=== PATIENT | female | born 1950 | race Caucasian/White ===

== ENCOUNTER 2017-04-23 06:33 | Day surgery (SDC) | payer MEDICARE, OTHER ==
--- NOTE | 2017-04-23 07:19 | PCM.PREANE ---
Preanesthetic Assessment - Anesthesia/Transfusion/Family Hx Anesthesia History: Prior Anesthesia Without Reaction Family History of Anesthesia Reaction: No Transfusion History: No Prior Transfusion(s) - Review of Systems General: No Symptoms Pulmonary: No Symptoms Cardiovascular: No Symptoms Gastrointestinal: No Symptoms Neurological: No Symptoms Other: Reports: None - Physical Assessment NPO Status Date: 04/22/17 O2 Sat by Pulse Oximetry: 96 Respiratory Rate: 16 Vital Signs: Last Vital Signs Temp 36.2 C 04/23/17 06:42 Pulse 81 04/23/17 06:42 Resp 16 04/23/17 06:42 BP 181/90 H 04/23/17 06:42 Pulse Ox 96 04/23/17 06:42 Height: 1.68 m Weight: 81.193 kg ASA Class: 2 Mental Status: Alert & Oriented x3 Airway Class: Mallampati = 2 Dentition: Reports: Dentures ROM/Head Extension: Full Lungs: Clear to Auscultation, Normal Respiratory Effort Cardiovascular: Regular Rate, Regular Rhythm - Allergies Allergies/Adverse Reactions: Allergies Allergy/AdvReac Type Severity Reaction Status Date / Time morphine Allergy Nausea and Verified 04/23/17 07:05 Vomiting - Anesthesia Plan Pre-Op Medication Ordered: None - Acknowledgements Anesthesia Type Planned: General Anesthesia Pt an Appropriate Candidate for the Planned Anesthesia: Yes Alternatives and Risks of Anesthesia Discussed w Pt/Guardian: Yes Pt/Guardian Understands and Agrees with Anesthesia Plan: Yes PreAnesthesia Questionnaire HEENT History: Reports: Other (See Below) Other HEENT History: wears glasses, top and bottom dentures Cardiovascular History: Reports: Hypertension Genitourinary History: Reports: None 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 OB/BYN History: vaginal prolapse, stress incontinence Musculoskeletal History: Reports: None Endocrine/Metabolic History: Reports: Other (See Below) Other Endocrine/Metabolic History: prediabetic - Past Surgical History Head Surgeries/Procedures: Reports: None Female Surgical History: Reports: Hysterectomy Other Female Surgeries/Procedures: cystocele repair Musculoskeletal Surgical History: Reports: Carpal Tunnel - SUBSTANCE USE Smoking Status *Q: Never Smoker Recreational Drug Use History: No - HOME MEDS Home Medications: Home Meds Ca Car&Hyd/Soy/Cohos/Melatonin [Estroven Nighttime Caplet] 2 mg PO BEDTIME 04/20 [History] Chlorthalidone 25 mg PO DAILY 04/20/17 [History] Estrogens, Conjugated [Premarin Vaginal Crm] 1 dose VAG ASDIRECTED 04/20/17 [ History] Lisinopril 40 mg PO DAILY 04/20/17 [History] Multivitamin [Multivitamins] 1 tab PO DAILY 04/20/17 [History]
[2017-04-23] MEDS ORDERED: Midazolam 1 MG/ML 2 ML SDV ONE (07:30)
[2017-04-23] MEDS ORDERED: Ondansetron 4 MG/2 ML SDV ONE (07:30)
[2017-04-23] MEDS ORDERED: Rocuronium 10 MG/ML 10 ML Syringe ONE (07:30)
[2017-04-23] MEDS ORDERED: Neostigmine Methylsulfate 1 MG/ML 5 ML Syringe ONE (07:30)
[2017-04-23] MEDS ORDERED: fentaNYL 100 MCG/2 ML SDV ONE (07:30)
[2017-04-23] MEDS ORDERED: Glycopyrrolate 0.2 MG/ML SDV ONE (07:30)
[2017-04-23] MEDS ORDERED: Lidocaine 2% 5 ML SDV ONE (07:30)
[2017-04-23] MEDS ORDERED: Propofol 200 MG/20 ML SDV ONE (07:30)
[2017-04-23] MEDS ORDERED: fentaNYL 100 MCG/2 ML SDV IVPUSH PRN (07:46)
[2017-04-23] MEDS ORDERED: Lactated Ringers 1,000 ML IV SCH (08:00)
[2017-04-23] MEDS ORDERED: Methylene Blue 50 MG/10 ML Ampule ONE (08:07)
[2017-04-23] MEDS ORDERED: ceFAZolin 1 GM Vial ONE (08:13)
[2017-04-23] MEDS ORDERED: Sodium Chloride 0.9% 20 ML ONE (08:13)
[2017-04-23] MEDS ORDERED: ePHEDrine 50 MG/ML SDV ONE (08:17)
[2017-04-23] MEDS ORDERED: Phenylephrine/Normal Saline 100 MCG/ML 10 ML Syringe ONE (08:21)
[2017-04-23] MEDS ORDERED: Promethazine 25 MG/ML SDV IM PRN (09:50)
[2017-04-23] MEDS ORDERED: Morphine 4 MG/ML Syringe IVPUSH PRN (09:50)
[2017-04-23] MEDS ORDERED: Ketorolac 30 MG/ML SDV IVPUSH ONE (09:50)
[2017-04-23] MEDS ORDERED: Acetaminophen/oxyCODONE 325-5 MG Tab PO PRN (09:50)
[2017-04-23] MEDS ORDERED: Morphine 2 MG/ML Syringe IVPUSH PRN (09:50)
[2017-04-23] MEDS ORDERED: Ketorolac 30 MG/ML SDV IVPUSH PRN (09:50)
--- NOTE | 2017-04-23 09:59 | PCM.OPNOTE ---
- General Post-Op/Procedure Note Date of Surgery/Procedure: 04/23/17 Operative Procedure(s): Pelvic floor reconstraction. Pre Op Diagnosis: Pelvic relaxation Post-Op Diagnosis: Same Anesthesia Technique: General ET Tube Primary Surgeon: Cam Moreno Industrial Therapist: Mikala Ugalde EBL in mLs: 100 Complications: None Condition: Good Free Text/Narrative:: Intake & Output 04/22/17 04/23/17 04/23/17 22:59 06:59 14:59 Output Total 30 Balance -30
--- NOTE | 2017-04-23 11:07 | PCM.POSTAN ---
POST ANESTHESIA ASSESSMENT - MENTAL STATUS Mental Status: Alert, Oriented - RESPIRATORY Respiratory Status: Respiratory Rate WNL, Airway Patent, O2 Saturation Stable - CARDIOVASCULAR CV Status: Pulse Rate WNL, Blood Pressure Stable - GASTROINTESTINAL GI Status: No Symptoms - POST OP HYDRATION Hydration Status: Adequate & Stable
[2017-04-23] MEDS: Acetaminophen/oxyCODONE 325-5 MG Tab PO PRN ×2 (11:30→22:53)
[2017-04-23] MEDS: Ondansetron 4 MG/2 ML SDV IVPUSH PRN (12:29)
--- NOTE | 2017-04-23 17:35 | OR ---
SURGEON: Cam Moreno MD DATE OF PROCEDURE: PREOPERATIVE DIAGNOSES: 1. Pelvic relaxation. 2. Enterocele and rectocele. 3. Stress urinary incontinence. POSTOPERATIVE DIAGNOSES: 1. Pelvic relaxation. 2. Enterocele and rectocele. 3. Stress urinary incontinence. OPERATIONS PERFORMED: Enterocele and rectocele repair utilizing a Ganga culdoplasty and Solyx TVT and cystoscopy. PRE FABRICATOR: NESHA Trevino ANESTHESIA: General endotracheal intubation, Paramjit Mari and Dr. Gonzalez. ESTIMATED BLOOD LOSS: Less than 100 mL. COMPLICATIONS: None. FINDINGS: Enterocele and rectocele, and stress urinary incontinence. INDICATION FOR SURGERY: Harviell refer to the admit note. PROCEDURE IN DETAIL: The patient was brought to the OR, properly identified and after adequate level of anesthesia and time-out taken, the patient was placed in lithotomy position, prepped and draped in sterile fashion as usual. The operation was started by identifying the enterocele and rectocele defect, and then by injecting the posterior and apical part of the vagina with copious amount of normal saline, the posterior vaginal wall was opened posteriorly from the vaginal vault to the introitus and dissected laterally. Hobart retractor was used to aid in the exposure and then with sharp and blunt dissection, the enterocele was from the rectocele and we further dissected the enterocele up to the floor of the pelvis and it was opened, and tested and is reduced and using #1 silk, Ganga culdoplasty was performed to close the hernial opening in the hernial sac and excised and sent for histopathology. Once we finished with that, then we continued to dissect with sharp and blunt dissection on both sides of the vagina until I could feel the ischial spine on both sides and then using Capio needle, the suture was anchored to the sacrospinous ligament on both sides and after the was taken and cut to fit the space, it anchored, and after fixing it to the underside of the vagina, it was anchored to the sacrospinous ligament from both sides and thus is farther reducing the enterocele and covering the defect area and reducing the rectocele tube. Once we did that, then the vaginal cuff was closed with 2-0 Vicryl continuous interlocking for hemostasis, and the perineal body is repaired and developed in the usual manner. Once we did with that, then we proceeded to the anterior vaginal wall and the area beneath the urethra about an inch and a half was infiltrated with copious amount of saline and incised in the midline and dissected in a tunneling fashion creating a tunnel to the Solyx TVT. In the Solyx TVT, anchored to the pubic rami on both side with due amount of tension to elevate the urethrovesical angle, and then the vaginal cuff was anteriorly closed with 2-0 Vicryl continuous interlocking for hemostasis. After that, cystoscopy was performed. The bladder was intact and the ureteric orifices were seen with the urine coming from both of them. Thus, the patency of both ureters verified. The instrument and sponge count was correct. The patient tolerated the procedure without any problem. ORTIZ DIAZ /[id number]
[2017-04-24] MEDS: Acetaminophen/oxyCODONE 325-5 MG Tab PO PRN (04:05)
[2017-04-24 06:23] LABS: CHLORIDE,CL 101 mmol/L (98-110); SODIUM,NA 139 mmol/L (136-146)
[2017-04-24] MEDS: Ondansetron 4 MG/2 ML SDV IVPUSH PRN (07:42)
--- NOTE | 2017-04-24 08:35 | PCM.SURGPN ---
- General Info Date of Service: 04/24/17 POD#: 1 Functional Status: Reports: Pain Controlled - Review of Systems General: Reports: No Symptoms HEENT: Reports: No Symptoms Pulmonary: Reports: No Symptoms Cardiovascular: Reports: No Symptoms Gastrointestinal: Reports: No Symptoms Genitourinary: Reports: No Symptoms Musculoskeletal: Reports: No Symptoms Skin: Reports: No Symptoms Neurological: Reports: No Symptoms Psychiatric: Reports: No Symptoms - Patient Data Vitals - Most Recent: Last Vital Signs Temp 36.8 C 04/24/17 04:00 Pulse 69 04/24/17 04:00 Resp 16 04/24/17 04:00 BP 119/63 04/24/17 04:00 Pulse Ox 91 L 04/24/17 04:00 Weight - Most Recent: 81.193 kg I&O - Last 24 Hours: Intake & Output 04/23/17 04/24/17 04/24/17 22:59 06:59 14:59 Intake Total 1150 1100 Output Total 120 1550 Balance 1030 -450 Lab Results Last 24 Hrs: Laboratory Results - last 24 hr 04/24/17 04/24/17 Range/Units 05:36 05:36 WBC 8.61 (4.0-11.0) K/uL RBC 4.67 (4.30-5.90) M/uL Hgb 12.7 (12.0-16.0) g/dL Hct 39.0 (36.0-46.0) % MCV 83.5 (80.0-98.0) fL MCH 27.2 (27.0-32.0) pg MCHC 32.6 (31.0-37.0) g/dL RDW Std Deviation 45.2 (28.0-62.0) fl RDW Coeff of [place] 15 (11.0-15.0) % Plt Count 174 (150-400) K/uL MPV 10.70 (7.40-12.00) fL Neut % (Auto) 74.6 (48.0-80.0) % Lymph % (Auto) 14.2 L (16.0-40.0) % Davison % (Auto) 8.9 (0.0-15.0) % Eos % (Auto) 2.2 (0.0-7.0) % Baso % (Auto) 0.1 (0.0-1.5) % Neut # (Auto) 6.4 H (1.4-5.7) K/uL Lymph # (Auto) 1.2 (0.6-2.4) K/uL Davison # (Auto) 0.8 (0.0-0.8) K/uL Eos # (Auto) 0.2 (0.0-0.7) K/uL Baso # (Auto) 0.0 (0.0-0.1) K/uL Nucleated RBC % 0.0 /100WBC Nucleated RBCs # 0 K/uL Sodium 139 (136-146) mmol/L Potassium 4.5 (3.5-5.1) mmol/L Chloride 101 (98-110) mmol/L Carbon Dioxide 30 (21-31) mmol/L BUN 22 (6.0-23.0) mg/dL Creatinine 0.9 (0.6-1.5) mg/dL Est Cr Clr Drug Dosing 58.34 mL/min Estimated GFR (MDRD) > 60.0 ml/min Glucose 116 H (60-110) mg/dL Calcium 8.3 L (8.8-10.8) mg/dL Med Orders - Current: Current Medications Lactated Ringer's (Ringers, Lactated) 1,000 mls @ 125 mls/hr IV ASDIRECTED MARIA D Ketorolac Tromethamine (Toradol) 30 mg IVPUSH Q6H PRN PRN Reason: Pain (severe 7-10) Stop: 04/28/17 09:50 Last Admin: 04/23/17 17:23 Dose: 30 mg Morphine Sulfate (Morphine) 2 mg IVPUSH Q2H PRN PRN Reason: Pain (severe 7-10) Morphine Sulfate (Morphine) 4 mg IVPUSH Q2H PRN PRN Reason: Pain (severe 7-10) Ondansetron HCl (Zofran) 4 mg IVPUSH Q6H PRN PRN Reason: Nausea/Vomiting Last Admin: 04/24/17 07:42 Dose: 4 mg Oxycodone/Acetaminophen (Percocet 325-5 Mg) 1 tab PO Q4H PRN PRN Reason: Pain (moderate 4-6) Oxycodone/Acetaminophen (Percocet 325-5 Mg) 2 tab PO Q4H PRN PRN Reason: Pain (moderate 4-6) Last Admin: 04/24/17 04:05 Dose: 2 tab Promethazine HCl (Phenergan) 25 mg IM Q6H PRN PRN Reason: Nausea/Vomiting Discontinued Medications Cefazolin Sodium (Ancef) Confirm Administered Dose 1 gm .ROUTE .STK-MED ONE Stop: 04/23/17 08:14 Ephedrine Sulfate (Ephedrine Sulfate) Confirm Administered Dose 50 mg .ROUTE .STK-MED ONE Stop: 04/23/17 08:18 Fentanyl (Sublimaze) Confirm Administered Dose 200 mcg .ROUTE .STK-MED ONE Stop: 04/23/17 07:31 Fentanyl (Sublimaze) 50 mcg IVPUSH Q5M PRN PRN Reason: Pain (severe 7-10) Stop: 04/24/17 07:46 Glycopyrrolate (Robinul) Confirm Administered Dose 0.4 mg .ROUTE .STK-MED ONE Stop: 04/23/17 07:31 Sodium Chloride (Normal Saline) Confirm Administered Dose 20 mls @ as directed .ROUTE .STK-MED ONE Stop: 04/23/17 08:14 Ketorolac Tromethamine (Toradol) 30 mg IVPUSH ONETIME ONE Stop: 04/23/17 09:51 Last Admin: 04/23/17 10:02 Dose: 30 mg Lidocaine (Xylocaine-Mpf 2%) Confirm Administered Dose 5 ml .ROUTE .STK-MED ONE Stop: 04/23/17 07:31 Methylene Blue (Provayblue) Confirm Administered Dose 50 mg .ROUTE .STK-MED ONE Stop: 04/23/17 08:08 Midazolam HCl (Versed 1 Mg/Ml) Confirm Administered Dose 2 mg .ROUTE .STK-MED ONE Stop: 04/23/17 07:31 Neostigmine Methylsulfate (Neostigmine) Confirm Administered Dose 5 mg .ROUTE .STK-MED ONE Stop: 04/23/17 07:31 Ondansetron HCl (Zofran) Confirm Administered Dose 4 mg .ROUTE .STK-MED ONE Stop: 04/23/17 07:31 Phenylephrine HCl (Phenylephrine In Ns 100 Mcg/Ml) Confirm Administered Dose 1 mg .ROUTE .STK-MED ONE Stop: 04/23/17 08:22 Propofol (Diprivan 20 Ml) Confirm Administered Dose 200 mg .ROUTE .STK-MED ONE Stop: 04/23/17 07:31 Rocuronium Reading (Zemuron) Confirm Administered Dose 100 mg .ROUTE .STK-MED ONE Stop: 04/23/17 07:31 - Exam Wound/Incisions: Healing Well General: Alert, Oriented HEENT: Pupils Equal Neck: Supple Lungs: Clear to Auscultation, Normal Respiratory Effort Cardiovascular: Regular Rate, Regular Rhythm GI/Abdominal Exam: Normal Bowel Sounds, Soft, Non-Tender, No Organomegaly, No Distention, No Abnormal Bruit, No Mass, Pelvis Stable Extremities: Normal Inspection, Normal Range of Motion, Non-Tender, No Pedal Edema, Normal Capillary Refill Skin: Warm, Dry, Intact Neurological: No New Focal Deficit Psy/Mental Status: Alert, Normal Affect, Normal Mood - Problem List Review Problem List Initiated/Reviewed/Updated: Yes - My Orders Last 24 Hours: Active Orders 24 hr Category Date Time Status Patient Status [ADT] Routine ADT 04/23/17 09:50 Active Antiembolic Devices [RC] PER UNIT ROUTINE Care 04/23/17 09:51 Active Bradycardia-Neuroaxis [employer] [RC] ROUTINE Care 04/23/17 07:46 Active Hypertension-Neuroaxis [employer] [RC] ROUTINE Care 04/23/17 07:46 Active Hypotension-Neuroaxis [employer] [RC] ROUTINE Care 04/23/17 07:46 Active Notify Provider Vital Signs [RC] ASDIRECTED Care 04/23/17 09:50 Active Oxygen Therapy [RC] ASDIRECTED Care 04/23/17 09:50 Active RT Incentive Spirometry [RC] Q2HWA Care 04/23/17 09:50 Active Up With Assistance [RC] PER UNIT ROUTINE Care 04/23/17 09:50 Active Up ad Michela [RC] PER UNIT ROUTINE Care 04/23/17 09:50 Active Urinary Catheter Removal [RC] Per Unit Routine Care 04/23/17 09:50 Active Verify Patient Consent Obtain [RC] ASDIRECTED Care 04/23/17 07:46 Active Vital Signs [RC] PER UNIT ROUTINE Care 04/23/17 09:50 Active Regular Diet [DIET] Diet 04/23/17 Lunch Active Acetaminophen/oxyCODONE [Percocet 325-5 MG] Med 04/23/17 09:50 Active 1 tab PO Q4H PRN Acetaminophen/oxyCODONE [Percocet 325-5 MG] Med 04/23/17 09:50 Active 2 tab PO Q4H PRN Ketorolac [Toradol] Med 04/23/17 09:50 Active 30 mg IVPUSH Q6H PRN Lactated Ringers [Ringers, Lactated] 1,000 ml Med 04/23/17 08:00 Active IV ASDIRECTED Morphine Med 04/23/17 09:50 Active 2 mg IVPUSH Q2H PRN Morphine Med 04/23/17 09:50 Active 4 mg IVPUSH Q2H PRN Ondansetron [Zofran] Med 04/23/17 09:50 Active 4 mg IVPUSH Q6H PRN Promethazine [Phenergan] Med 04/23/17 09:50 Active 25 mg IM Q6H PRN Medication Administration Instruction [OM.PC] Routine Oth 04/23/17 07:46 Ordered Peripheral IV Discontinue [OM.PC] Routine Oth 04/23/17 09:50 Ordered Sequential Compression Device [OM.PC] Per Unit Routine Oth 04/23/17 09:50 Ordered Resuscitation Status Routine Resus Stat 04/23/17 09:50 Ordered Medication Orders Lactated Ringer's (Ringers, Lactated) 1,000 mls @ 125 mls/hr IV ASDIRECTED MARIA D Ketorolac Tromethamine (Toradol) 30 mg IVPUSH Q6H PRN PRN Reason: Pain (severe 7-10) Stop: 04/28/17 09:50 Last Admin: 04/23/17 17:23 Dose: 30 mg Morphine Sulfate (Morphine) 2 mg IVPUSH Q2H PRN PRN Reason: Pain (severe 7-10) Morphine Sulfate (Morphine) 4 mg IVPUSH Q2H PRN PRN Reason: Pain (severe 7-10) Ondansetron HCl (Zofran) 4 mg IVPUSH Q6H PRN PRN Reason: Nausea/Vomiting Last Admin: 04/24/17 07:42 Dose: 4 mg Admin: 04/23/17 12:29 Dose: 4 mg Oxycodone/Acetaminophen (Percocet 325-5 Mg) 1 tab PO Q4H PRN PRN Reason: Pain (moderate 4-6) Oxycodone/Acetaminophen (Percocet 325-5 Mg) 2 tab PO Q4H PRN PRN Reason: Pain (moderate 4-6) Last Admin: 04/24/17 04:05 Dose: 2 tab Admin: 04/23/17 22:53 Dose: 2 tab Admin: 04/23/17 11:30 Dose: 2 tab Promethazine HCl (Phenergan) 25 mg IM Q6H PRN PRN Reason: Nausea/Vomiting - Assessment Assessment (Free Text/Narrative):: Status post vaginal pelvic repair postoperative day #1 she is doing well voiding without any problem there is minimum bleeding had lab work essentially is within normal limits - Plan Plan (Free Text/Narrative):: I am sending her home today the post surgery instruction is given to the patient prescription for Percocet 7.5/325 for postoperative pain is given and a prescription of Zofran 4 mg by mouth is given for nausea and vomiting the patient have appointment to see me in the office one week from the day of her discharge
== END 2017-04-24 17:10 | disposition home or self-care (01) ==
LOC: MW.SDS 06:33 → MW.MS 09:50 → MW.SDS 04-24 17:10
PROVIDERS: ATTEND Obstetrics & Gynecology
DX: N81.5 Vaginal enterocele (principal); N81.6 Rectocele; N39.3 Stress incontinence (female) (male); Z79.899 Other long term (current) drug therapy; Z79.818 Long term (current) use of other agents affecting estrogen receptors and estrogen levels
CPT/HCPCS: 36415; 57250; 57288; 80048; 85025; 88304; A9270; C1763; C1781; J0690; J1885; J2250; J2405; J2550; J3010; 00940; J2704

== ENCOUNTER 2018-07-26 09:16 | Inpatient (IN) | payer MEDICARE, OTHER ==
[~2018-07-26 09:16] MED LIST: Acetaminophen 1,000 MG in Premix Bag 1 BAG IV SCH; EPINEPHRINE INJECT SCH; Famotidine 20 MG/2 ML SDV IVPUSH SCH; KETOROLAC INJECT SCH; Midazolam 1 MG/ML 2 ML SDV ONE; Propofol 200 MG/20 ML SDV ONE; ROPIVACAINE INJECT SCH; Ropivacaine 49.25 ML, Ketorolac 30 MG, EPINEPHrine 0.5 MG, cloNIDine 80 MCG in Sodium C... INJECT SCH; Scopolamine 1.5 MG Transdermal Patch TRDERM SCH; Tranexamic Acid 2,000 MG in Sodium Chloride 0.9% 100 ML IV ONE; [UNRECOGNIZED DRUG - OTHER] INJECT SCH; ceFAZolin 1 GM Vial ONE; ceFAZolin 2 GM in Premix Bag 1 BAG IV SCH; fentaNYL 100 MCG/2 ML SDV ONE
--- NOTE | 2018-07-26 09:47 | PCM.PREANE ---
Preanesthetic Assessment - Anesthesia/Transfusion/Family Hx Anesthesia History: Prior Anesthesia Without Reaction Family History of Anesthesia Reaction: No Transfusion History: No Prior Transfusion(s) Intubation History: Unknown - Review of Systems General: No Symptoms Pulmonary: No Symptoms Cardiovascular: No Symptoms Gastrointestinal: No Symptoms Neurological: No Symptoms Other: Reports: None - Physical Assessment Height: 1.65 m Weight: 83.915 kg ASA Class: 2 Mental Status: Alert & Oriented x3 Airway Class: Mallampati = 2 Dentition: Reports: Dentures (upper and lower) Thyro-Mental Finger Breadths: 3 Mouth Opening Finger Breadths: 2 ROM/Head Extension: Full Lungs: Clear to Auscultation, Normal Respiratory Effort Cardiovascular: Regular Rate, Regular Rhythm - Allergies Allergies/Adverse Reactions: Allergies Allergy/AdvReac Type Severity Reaction Status Date / Time morphine Allergy Nausea and Verified 07/22/18 07:48 Vomiting - Blood Blood Available: No - Anesthesia Plan Pre-Op Medication Ordered: None - Acknowledgements Anesthesia Type Planned: Spinal (general anesthesia back-up) Pt an Appropriate Candidate for the Planned Anesthesia: Yes Alternatives and Risks of Anesthesia Discussed w Pt/Guardian: Yes Pt/Guardian Understands and Agrees with Anesthesia Plan: Yes PreAnesthesia Questionnaire HEENT History: Reports: Other (See Below) Other HEENT History: wears glasses, has top and bottom dentures Cardiovascular History: Reports: Hypertension Respiratory History: Reports: None Gastrointestinal History: Reports: None Genitourinary History: Reports: None 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 OB/BYN History: vaginal prolapse, stress incontinence Musculoskeletal History: Reports: Osteoarthritis Neurological History: Reports: None Psychiatric History: Reports: None Endocrine/Metabolic History: Reports: Diabetes, Type II (placed on metformin last week, treated with diet/excercize before (A1C 6.5 now)), Obesity/BMI 30+ Other Endocrine/Metabolic History: prediabetic Hematologic History: Reports: None Immunologic History: Reports: None Oncologic (Cancer) History: Reports: None Dermatologic History: Reports: None - Past Surgical History Head Surgeries/Procedures: Reports: None HEENT Surgical History: Reports: None Cardiovascular Surgical History: Reports: None Respiratory Surgical History: Reports: None GI Surgical History: Reports: None Female Surgical History: Reports: Hysterectomy Other Female Surgeries/Procedures: cystocele, rectocele & cystocele with vaginal sling procedure Endocrine Surgical History: Reports: None Neurological Surgical History: Reports: None Musculoskeletal Surgical History: Reports: Carpal Tunnel (bilateral) Oncologic Surgical History: Reports: None Dermatological Surgical History: Reports: None - SUBSTANCE USE Smoking Status *Q: Never Smoker Recreational Drug Use History: No - HOME MEDS Home Medications: Home Meds Chlorthalidone 25 mg PO DAILY 04/20/17 [History] Estrogens, Conjugated [Premarin Vaginal Crm] 1 dose VAG ASDIRECTED 04/20/17 [ History] Lisinopril 40 mg PO DAILY 04/20/17 [History] Multivitamin [Multivitamins] 1 tab PO DAILY 04/20/17 [History] Potassium Chloride 20 meq PO DAILY 07/22/18 [History] metFORMIN HCl [Metformin HCl] 1 tab PO DAILY 07/22/18 [History] - CURRENT (IN HOUSE) MEDS Current Meds: Current Medications Famotidine (Pepcid) 40 mg IVPUSH ONARRIVE MARIA D Acetaminophen 1,000 mg/ Premix 100 mls @ 400 mls/hr IV ONARRIVE MARIA D Cefazolin Sodium/Dextrose 2 gm (/ Premix) 50 mls @ 100 mls/hr IV ONCALL MARIA D Lactated Ringer's (Ringers, Lactated) 1,000 mls @ 100 mls/hr IV ASDIRECTED MARIA D Ropivacaine 49.25 ml/Ketorolac Tromethamine 30 mg/Epinephrine HCl 0.5 mg/ Sodium Chloride 75 mls @ 37.5 mls/min INJECT ASDIRECTED MARIA D Scopolamine (Transderm-Scop) 1.5 mg TRDERM ONARRIVE MARIA D Discontinued Medications Cefazolin Sodium (Ancef) Confirm Administered Dose 2 gm .ROUTE .STK-MED ONE Stop: 07/26/18 09:05 Fentanyl (Sublimaze) Confirm Administered Dose 100 mcg .ROUTE .STK-MED ONE Stop: 07/26/18 09:08 Ropivacaine 49.25 ml/Ketorolac Tromethamine 30 mg/Epinephrine HCl 0.5 mg/ Clonidine HCl 80 mcg/ Sodium Chloride 75 mls @ 50 mls/sec INJECT ASDIRECTED MARIA D Tranexamic Acid 2,000 mg/ (Sodium Chloride) 120 mls @ 600 mls/hr IV ASDIRECTED ONE Stop: 07/26/18 08:11 Midazolam HCl (Versed 1 Mg/Ml) Confirm Administered Dose 4 mg .ROUTE .STK-MED ONE Stop: 07/26/18 09:07 Propofol (Diprivan 20 Ml) Confirm Administered Dose 200 mg .ROUTE .STK-MED ONE Stop: 07/26/18 09:13 Propofol (Diprivan 20 Ml) Confirm Administered Dose 200 mg .ROUTE .K-MED ONE Stop: 07/26/18 09:14 Tranexamic Acid (Cyklokapron) Confirm Administered Dose 2,000 mg .ROUTE .[facility]- MED ONE Stop: 07/26/18 08:06
[2018-07-26] MEDS: Lactated Ringers 1,000 ML IV SCH ×3 (10:20→21:22)
[2018-07-26] MEDS ORDERED: Midazolam 1 MG/ML 2 ML SDV ONE (10:33)
[2018-07-26] MEDS ORDERED: Glycopyrrolate 0.2 MG/ML SDV ONE (10:59)
[2018-07-26] MEDS ORDERED: ePHEDrine 50 MG/ML SDV ONE (11:13)
[2018-07-26] MEDS ORDERED: Bisacodyl 10 MG Supp RECTAL PRN (11:46)
[2018-07-26] MEDS ORDERED: HYDROmorphone 2 MG/ML SDV IVPUSH PRN (11:46)
[2018-07-26] MEDS ORDERED: diphenhydrAMINE 25 MG Cap PO PRN (11:46)
[2018-07-26] MEDS ORDERED: Aluminum Hydroxide/Magnesium Hydroxide/Simethicone Susp 30 ML Cup PO PRN (11:46)
[2018-07-26] MEDS ORDERED: Sodium Chloride 0.9% 2.5 ML Syringe FLUSH PRN (11:51)
[2018-07-26] MEDS ORDERED: Sodium Chloride 0.9% 10 ML Syringe FLUSH PRN (11:51)
--- NOTE | 2018-07-26 12:00 | PCM.OPNOTE ---
- General Post-Op/Procedure Note Date of Surgery/Procedure: 07/26/18 Operative Procedure(s): R TKA Post-Op Diagnosis: DJD R knee Anesthesia Technique: Moderate Sedation, Spinal Primary Surgeon: Lana French Material Coordinator: La Smith Material Coordinator: Mikala Ugalde EBKrzysztof in mLs: 50 Condition: Good Free Text/Narrative:: #[id number] tt=38 min
[2018-07-26] MEDS ORDERED: HYDROmorphone 1 MG/ML Syringe IVPUSH PRN (12:25)
[2018-07-26] MEDS: Ketorolac 15 MG/ML SDV IVPUSH SCH ×2 (12:36→17:50)
--- NOTE | 2018-07-26 13:33 | PCM.CONS ---
H&P History of Present Illness - General Date of Service: 07/26/18 Admit Problem/Dx: Admission Diagnosis/Problem Admission Diagnosis/Problem Replacement of total knee joint Source of Information: Patient, Old Records (pre-operative evaluation) History Limitations: Reports: No Limitations - History of Present Illness Initial Comments - Free Text/Narative: This 68 year old female with pmh of DM type 2, HTN and hypokalemia presented for R TKA with Dr French. Hospitalist service consulted for medical management. Mansi is alert and oriented, recently arrived to Med/Surg from PACU. She reports pain is controlled currently. No concerns. No chest pain or SOB. reports she was recently started on Metformin and potassium supplements for DM and hypokalemia noted on pre-operative evaluation. - Related Data Allergies/Adverse Reactions: Allergies Allergy/AdvReac Type Severity Reaction Status Date / Time morphine Allergy Nausea and Verified 07/22/18 07:48 Vomiting Home Medications: Home Meds Chlorthalidone 25 mg PO DAILY 04/20/17 [History] Estrogens, Conjugated [Premarin Vaginal Crm] 1 dose VAG ASDIRECTED 04/20/17 [ History] Lisinopril 40 mg PO DAILY 04/20/17 [History] Multivitamin [Multivitamins] 1 tab PO DAILY 04/20/17 [History] Potassium Chloride 20 meq PO DAILY 07/22/18 [History] Meloxicam 15 mg PO DAILY 07/26/18 [History] metFORMIN HCl [Metformin HCl ER] 1,000 mg PO DAILY 07/26/18 [History] Past Medical History - Past Health History Medical/Surgical History: Denies Medical/Surgical History HEENT History: Reports: Other (See Below) Other HEENT History: wears glasses, has top and bottom dentures Cardiovascular History: Reports: Hypertension. Denies: Afib, Blood Clots/VTE/ DVT, CAD Respiratory History: Reports: None. 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 Denies: CVA, TIA Psychiatric History: Reports: None Endocrine/Metabolic History: Reports: Diabetes, Type II, Obesity/BMI 30+ Other Endocrine/Metabolic History: prediabetic Hematologic History: Reports: None Immunologic History: Reports: None Oncologic (Cancer) History: Reports: None Dermatologic History: Reports: None - Past Surgical History Head Surgeries/Procedures: Reports: None HEENT Surgical History: Reports: None Cardiovascular Surgical History: Reports: None Respiratory Surgical History: Reports: None GI Surgical History: Reports: None Female Surgical History: Reports: Hysterectomy Other Female Surgeries/Procedures: cystocele, rectocele & cystocele with vaginal sling procedure Endocrine Surgical History: Reports: None Neurological Surgical History: Reports: None Musculoskeletal Surgical History: Reports: Carpal Tunnel Oncologic Surgical History: Reports: None Dermatological Surgical History: Reports: None Social & Family History - Family History Family Medical History: Unobtainable - Tobacco Use Smoking Status *Q: Never Smoker - Alcohol Use Alcohol Use History: No - Recreational Drug Use Recreational Drug Use: No - Living Situation & Occupation Living situation: Reports: Occupation: Retired H&P Review of Systems - Review of Systems: Review Of Systems: See Below General: Reports: No Symptoms. Denies: Fever, Chills, Malaise, Weakness HEENT: Reports: No Symptoms. Denies: Headaches, Sinus Congestion Pulmonary: Reports: No Symptoms. Denies: Shortness of Breath Cardiovascular: Reports: No Symptoms. Denies: Chest Pain Gastrointestinal: Reports: No Symptoms. Denies: Abdominal Pain, Black Stool, Bloody Stool, Nausea, Vomiting Genitourinary: Reports: No Symptoms Musculoskeletal: Reports: No Symptoms. Denies: Joint Pain Skin: Reports: No Symptoms Neurological: Reports: No Symptoms Hematologic/Lymphatic: Reports: No Symptoms Immunologic: Reports: No Symptoms Exam - Exam Exam: See Below - Vital Signs Vital Signs: Last Vital Signs Temp 99.0 F 07/26/18 12:06 Pulse 73 07/26/18 12:43 Resp 15 07/26/18 12:43 BP 113/58 L 07/26/18 12:43 Pulse Ox 94 L 07/26/18 12:43 Weight: 83.915 kg - Exam General: Alert, Oriented, Cooperative HEENT: Conjunctiva Clear, Mucosa Moist & [place], Pupils Equal Lungs: Clear to Auscultation, Normal Respiratory Effort Cardiovascular: Regular Rate, Regular Rhythm, Normal S1, Normal S2. No: Systolic Murmur GI/Abdominal Exam: Normal Bowel Sounds, Soft, Non-Tender, No Mass Extremities: Normal Inspection, Normal Range of Motion, Non-Tender, No Pedal Edema Skin: Incision (R TKA, MERCEDES bandage in place) Neuro Extensive - Mental Status: Alert, Oriented x3 Neuro Extensive - Motor, Sensory, Reflexes: CN II-XII Intact Psychiatric: Alert, Normal Affect, Normal Mood - Patient Data Lab Results Last 24 hrs: Laboratory Results - last 24 hr 07/26/18 07/26/18 Range/Units 10:04 10:23 POC Glucose 102 (60-110) mg/dL Blood Type O POSITIVE Antibody Screen NEGATIVE Consult PN Assessment/Plan Procedures: Procedures BREAST TOMOSYNTHESIS BI (04/05/18) COMPLETE CBC W/AUTO DIFF WBC (04/23/17) COMPREHEN METABOLIC PANEL (04/01/17) DXA BONE DENSITY AXIAL (04/01/17) LIPID PANEL (04/01/17) METABOLIC PANEL TOTAL CA (04/23/17) MRI JNT OF LWR EXTRE W/O DYE (07/09/18) REPAIR BLADDER DEFECT (04/23/17) REPAIR RECTUM & VAGINA (04/23/17) ROUTINE VENIPUNCTURE (04/23/17) SCR MAMMO BI INCL CAD (04/05/18) TISSUE EXAM BY PATHOLOGIST (04/23/17) URINALYSIS AUTO W/SCOPE (04/01/17) X-RAY EXAM KNEE 4 OR MORE (02/02/18) (1) S/P total knee arthroplasty SNOMED Code(s): 1397172101878, 046296109, 1996569847619 Code(s): Z96.659 - PRESENCE OF UNSPECIFIED ARTIFICIAL KNEE JOINT Current Visit: Yes Qualifiers: Laterality: right Qualified Code(s): Z96.651 - Presence of right artificial knee joint (2) HTN (hypertension) SNOMED Code(s): 00149391 Code(s): I10 - ESSENTIAL (PRIMARY) HYPERTENSION Current Visit: Yes Qualifiers: Hypertension type: essential hypertension Qualified Code(s): I10 - Essential (primary) hypertension (3) DM type 2 (diabetes mellitus, type 2) SNOMED Code(s): 71608333 Code(s): E11.9 - TYPE 2 DIABETES MELLITUS WITHOUT COMPLICATIONS Current Visit: Yes Qualifiers: 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: without intermediate use Diabetes mellitus complication status: without complication Qualified Code(s): E11.9 - Type 2 diabetes mellitus without complications Problem List Initiated/Reviewed/Updated: Yes My Orders Last 24 Hours: My Active Orders 07/26/18 13:13 BMP [BASIC METABOLIC PANEL,BMP] [CHEM] Routine CBC WITH AUTO DIFF [HEME] Routine 07/26/18 13:15 Blood Glucose Check, Bedside [RC] TIDAC 07/26/18 17:00 Insulin Aspart [NovoLOG] See Protocol SUBCUT TIDAC 07/27/18 09:00 Chlorthalidone 25 mg PO DAILY Lisinopril [Prinivil] 40 mg PO DAILY Potassium Chloride [Klor-Con M20] 20 meq PO DAILY Plan: This 68 yohan old female admitted with R TKA, Hospitalist consulted for medical management 1. S/P R TKA: Orders per Orthopedics 2. HTN: Stable, continue Chlorthalidone. 3. Hypokalemia: check BMP now. Monitor and supplement as needed. Will add Magnesium as well. 4. DM Type 2: Prediabetic, A1c 6.4. Hold Metformin, Novolog SSI, BS with meals. VTE prophylaxis: Would recommend when Orthopedics deems appropriate. Plan for SNF for short term rehabilitation.
[2018-07-26] MEDS: oxyCODONE 5 MG Tab PO PRN ×2 (14:22→20:25)
[2018-07-26] MEDS: Acetaminophen 1,000 MG in Premix Bag 1 BAG IV SCH ×2 (15:44→21:19)
--- NOTE | 2018-07-26 16:06 | OR ---
SURGEON: Lana French MD DATE OF PROCEDURE: 07/26/2018 PREOPERATIVE DIAGNOSIS: Degenerative joint disease of the right knee, tricompartmental. POSTOPERATIVE DIAGNOSIS: Degenerative joint disease of the right knee, tricompartmental. PROCEDURE: Right total knee arthroplasty. PACKAGING CLERK: La Smith PA-C; HENRY Trevino; and Roly John MD, PGY2. REASON AND ROLE FOR PACKAGING CLERK: Retraction, prepping, draping, positioning, and closure assistance. ANESTHESIA: Spinal with sedation. ESTIMATED BLOOD LOSS: 50 mL. TOURNIQUET TIME: 38 minutes. COMPLICATIONS: None. DEEP VENOUS THROMBOSIS PROPHYLAXIS: PAS boot and MASHA hose to the nonoperative leg. IMPLANTS USED: Vilma Persona femoral component size 7 standard (LPS), tibial component size F, 10 mm all-polyethylene articular insert, and 32 mm all-polyethylene patella. INTRAOPERATIVE FINDINGS: Showed severe tricompartmental degenerative changes with grade 4 chondromalacia in all compartments. No significant synovitis was found. Osteophyte formation was also noted. BRIEF HISTORY: Mansi is a 68-year-old female who has had complaint of progressive right knee pain. She had failed conservative treatment. Due to her lack of response to conservative treatment, I did recommend surgical intervention. The risks and goals of procedure were discussed with the patient and were documented preoperatively. She agreed to proceed. DESCRIPTION OF PROCEDURE: The patient was properly identified and brought to the operating room. The patient was then transferred from the operating room cart and placed on the operating table in a supine position. Anesthesia was administered by the anesthesia staff. After adequate anesthesia was obtained, a well-padded tourniquet was applied to the surgical lower extremity. Jarrett catheter was placed. The lower extremity was then prepped in standard fashion using ChloraPrep solution. It was then sterilely draped. A time-out was performed to ensure correct site and procedure. Preoperative antibiotics were given along with one gram tranexamic acid IV. The surgical site had been marked preoperatively. An Esmarch was used to exsanguinate the right lower extremity and the tourniquet was inflated. An incision was made over the anterior aspect of the knee. The subcutaneous tissues were dissected down to the level of the fascia. A medial parapatellar approach to the knee was made. A portion of the infrapatellar fat pad was then excised. The distal femur was then exposed. The step reamer was used to gain access to the intramedullary canal. This was placed in 6 degrees of valgus. Pins were placed. The distal femoral cutting block was placed and the distal femoral cut was made. Instrumentation was then removed. The femur was then sized. Both Whitesides' line and the epicondylar axis were then marked with electrocautery. The 4-in-1 cutting block was placed. This was placed in a slightly externally rotated position, which corresponded well with the previously drawn lines. The cutting guide was then pinned into position. An Ever wing guide was used to check the depth of resection of our anterior condylar cut and it was felt that no notching would occur. The anterior condylar cut was then made followed by the posterior condylar cut. Both the posterior chamfer and anterior chamfer cuts were then made. The cutting block was then removed along with the excess bony remnants. We then turned our attention to the tibia. The anterior cruciate ligament and posterior cruciate ligament were released and a posterior cruciate ligament retractor was placed to allow the tibia to be pulled anteriorly. The tibial extra-medullary guide was then positioned. We chose to take approximately 2 mm off the lowest side. The proximal tibia cutting guide was then placed and screwed into position. The proximal tibial resection was then made with care being taken to protect the patellar tendon. The bony resection was then removed. The remainder of the medial and lateral meniscus were then excised. Care was taken to protect the popliteus tendon. The tibia was then sized to the appropriate size. The distal femur was then elevated. The posterior capsule was stripped off the distal femur both medially and laterally. The posterior capsule along with the medial and lateral gutters were then injected with a standard mixture consisting of epinephrine, Toradol, and Ropivacaine, unless any allergies were found preoperatively. The femoral component was then placed onto the distal femur in a slightly lateral position. This fit the femur well. A box cut was then made without difficulty. This was then removed. The tibial trial along with the polyethylene liner was then placed. The knee came easily into full extension and was stable to varus and valgus stressing both in full extension and flexion. Any additional releases were performed at this time. We then returned our attention to the patella. The patella was everted and towel clamps were used to hold the patella in position. It was resected to a 15 millimeter thickness. It was then sized to the appropriate size. It was prepared in the usual fashion after placing the predetermined size clamps. This was placed in a slightly superior and medial position. The clamp was then removed. The patellar trial button was placed. The knee was taken through a range of motion using the no-touch technique. The patella tracked centrally. A drop diaz was then placed to check alignment. All instruments were then removed from the knee. The tibial sizer was then placed on the tibia. The tibia was prepared in the usual fashion using the reamer and broach. This was then removed. All bony surfaces were copiously irrigated with Pulsavac solution. They were then suctioned dry. Cement was prepared on the back table in the usual manner. Antibiotic impregnated cement was used if the patient was diabetic. Once it was prepared, the bone ends were again suctioned dry. The tibia was cemented into place first. This was malleted into position. Excess cement was then cleared. The femur was then placed in a similar manner. We placed the polyethylene trial into place and the knee was brought into full extension. An axial load was placed while keeping the knee in full extension. The patella button was also cemented into position and the clamp was used to hold this in place as the cement was allowed to cure. The wound was copiously irrigated with saline using a Pulsavac hyperion analyst. After we had adequate curing of the cement, the knee was again taken through a range of motion. The size of the polyethylene was then determined. The polyethylene trial was then removed. The tibial tray was suctioned to make sure there was no remaining soft tissue or cement. Excess cement was cleared from around the edges of the prosthesis as well. The tourniquet was then deflated. We were able to observe for any excess bleeding and none was noted. Electrocautery was used to maintain hemostasis. An additional gram of tranexamic acid was given IV. The retractors were again placed and the predetermined polyethylene was then placed. This was locked into position without difficulty. The knee was again taken through a range of motion with no change from the prior exam. The fascial layer was closed with Number One Vicryl. The subcutaneous tissues were closed with 2-0 Vicryl. The skin was closed with sid. Xeroform gauze was placed over the wound and a bulky dressing was applied. The patient was then awakened from anesthesia and transferred back to the operating room cart. They were brought to the recovery room in stable condition. All needle and sponge counts were correct. HECTOR DIAZ /[id number] MTDD
--- NOTE | 2018-07-26 16:51 | CR ---
EXAMINATION: Right knee HISTORY: TKA COMPARISON: 02/02/2018 TECHNIQUE: 2 views FINDINGS/IMPRESSION: Right total knee hardware is demonstrated in good position and alignment. Postoperative soft tissue changes are noted.
[2018-07-26] MEDS: Insulin Aspart 100 Units/ML 3 ML Pen SUBCUT SCH (17:40)
[2018-07-26] MEDS: ceFAZolin 2 GM in Premix Bag 1 BAG IV SCH (19:26)
[2018-07-27] MEDS: Ketorolac 15 MG/ML SDV IVPUSH SCH (00:51)
[2018-07-27] MEDS: ceFAZolin 2 GM in Premix Bag 1 BAG IV SCH (02:39)
[2018-07-27] MEDS: oxyCODONE 5 MG Tab PO PRN (02:40)
[2018-07-27] MEDS: Acetaminophen 1,000 MG in Premix Bag 1 BAG IV SCH (04:09)
[2018-07-27] MEDS: Insulin Aspart 100 Units/ML 3 ML Pen SUBCUT SCH ×3 (07:48→16:44)
[2018-07-27] MEDS: Ondansetron 4 MG/2 ML SDV IVPUSH PRN ×2 (08:15→16:08)
[2018-07-27] MEDS ORDERED: Magnesium Sulfate/Water 2 GM in Premix Bag 1 BAG IV ONE (08:18)
--- NOTE | 2018-07-27 08:29 | PCM.SURGPN ---
- General Info Date of Service: 07/27/18 Date of Surgery/Procedure: 07/26/18 POD#: 1 Post-Op Diagnosis: Right total knee Functional Status: Reports: Other (Pain is moderately controlled. Has been able to ambulate in room some and has been up to her chair. ) - Review of Systems General: Denies: Fever Pulmonary: Denies: Shortness of Breath Cardiovascular: Denies: Chest Pain Gastrointestinal: Denies: Abdominal Pain Neurological: Denies: Numbness - Patient Data Vitals - Most Recent: Last Vital Signs Temp 97.0 F 07/27/18 04:00 Pulse 72 07/27/18 04:00 Resp 14 07/27/18 04:00 BP 120/63 07/27/18 04:00 Pulse Ox 93 L 07/27/18 04:00 Weight - Most Recent: 185 lb I&O - Last 24 Hours: Intake & Output 07/26/18 07/27/18 07/27/18 22:59 06:59 14:59 Intake Total 1000 2515 Output Total 350 1200 Balance 650 1315 Lab Results Last 24 Hrs: Laboratory Results - last 24 hr 07/26/18 07/26/18 07/26/18 Range/Units 10:04 10:23 13:32 WBC 7.85 (4.0-11.0) K/uL RBC 4.79 (4.30-5.90) M/uL Hgb 13.2 (12.0-16.0) g/dL Hct 40.8 (36.0-46.0) % MCV 85.2 (80.0-98.0) fL MCH 27.6 (27.0-32.0) pg MCHC 32.4 (31.0-37.0) g/dL RDW Std Deviation 47.0 (28.0-62.0) fl RDW Coeff of [place] 15 (11.0-15.0) % Plt Count 212 (150-400) K/uL MPV 10.60 (7.40-12.00) fL Neut % (Auto) 64.9 (48.0-80.0) % Lymph % (Auto) 26.2 (16.0-40.0) % [place] % (Auto) 6.8 (0.0-15.0) % Eos % (Auto) 2.0 (0.0-7.0) % Baso % (Auto) 0.1 (0.0-1.5) % Neut # (Auto) 5.1 (1.4-5.7) K/uL Lymph # (Auto) 2.1 (0.6-2.4) K/uL [place] # (Auto) 0.5 (0.0-0.8) K/uL Eos # (Auto) 0.2 (0.0-0.7) K/uL Baso # (Auto) 0.0 (0.0-0.1) K/uL Nucleated RBC % 0.0 /100WBC Nucleated RBCs # 0 K/uL Sodium (136-145) mmol/L Potassium (3.5-5.1) mmol/L Chloride (98-107) mmol/L Carbon Dioxide (21.0-32.0) mmol/L BUN (7.0-18.0) mg/dL Creatinine (0.6-1.0) mg/dL Est Cr Clr Drug Dosing mL/min Estimated GFR (MDRD) ml/min Glucose (74-106) mg/dL POC Glucose 102 (60-110) mg/dL Calcium (8.5-10.1) mg/dL Magnesium (1.8-2.4) mg/dL Blood Type O POSITIVE Antibody Screen NEGATIVE 07/26/18 07/26/18 07/26/18 Range/Units 13:32 13:32 17:19 WBC (4.0-11.0) K/uL RBC (4.30-5.90) M/uL Hgb (12.0-16.0) g/dL Hct (36.0-46.0) % MCV (80.0-98.0) fL MCH (27.0-32.0) pg MCHC (31.0-37.0) g/dL RDW Std Deviation (28.0-62.0) fl RDW Coeff of [place] (11.0-15.0) % Plt Count (150-400) K/uL MPV (7.40-12.00) fL Neut % (Auto) (48.0-80.0) % Lymph % (Auto) (16.0-40.0) % [place] % (Auto) (0.0-15.0) % Eos % (Auto) (0.0-7.0) % Baso % (Auto) (0.0-1.5) % Neut # (Auto) (1.4-5.7) K/uL Lymph # (Auto) (0.6-2.4) K/uL [place] # (Auto) (0.0-0.8) K/uL Eos # (Auto) (0.0-0.7) K/uL Baso # (Auto) (0.0-0.1) K/uL Nucleated RBC % /100WBC Nucleated RBCs # K/uL Sodium 142 (136-145) mmol/L Potassium 3.4 L (3.5-5.1) mmol/L Chloride 106 (98-107) mmol/L Carbon Dioxide 28.2 (21.0-32.0) mmol/L BUN 19 H (7.0-18.0) mg/dL Creatinine 1.0 (0.6-1.0) mg/dL Est Cr Clr Drug Dosing 49.80 mL/min Estimated GFR (MDRD) 55.5 ml/min Glucose 125 H (74-106) mg/dL POC Glucose 102 (60-110) mg/dL Calcium 8.0 L (8.5-10.1) mg/dL Magnesium 1.9 (1.8-2.4) mg/dL Blood Type Antibody Screen 07/26/18 07/27/18 07/27/18 Range/Units 20:45 04:45 04:45 WBC (4.0-11.0) K/uL RBC (4.30-5.90) M/uL Hgb 11.0 L (12.0-16.0) g/dL Hct 34.1 L (36.0-46.0) % MCV (80.0-98.0) fL MCH (27.0-32.0) pg MCHC (31.0-37.0) g/dL RDW Std Deviation (28.0-62.0) fl RDW Coeff of [place] (11.0-15.0) % Plt Count (150-400) K/uL MPV (7.40-12.00) fL Neut % (Auto) (48.0-80.0) % Lymph % (Auto) (16.0-40.0) % [place] % (Auto) (0.0-15.0) % Eos % (Auto) (0.0-7.0) % Baso % (Auto) (0.0-1.5) % Neut # (Auto) (1.4-5.7) K/uL Lymph # (Auto) (0.6-2.4) K/uL [place] # (Auto) (0.0-0.8) K/uL Eos # (Auto) (0.0-0.7) K/uL Baso # (Auto) (0.0-0.1) K/uL Nucleated RBC % /100WBC Nucleated RBCs # K/uL Sodium 138 (136-145) mmol/L Potassium 3.7 (3.5-5.1) mmol/L Chloride 104 (98-107) mmol/L Carbon Dioxide 26.6 (21.0-32.0) mmol/L BUN 15 (7.0-18.0) mg/dL Creatinine 1.0 (0.6-1.0) mg/dL Est Cr Clr Drug Dosing 49.80 mL/min Estimated GFR (MDRD) 55.5 ml/min Glucose 115 H (74-106) mg/dL POC Glucose 111 H (60-110) mg/dL Calcium 7.5 L (8.5-10.1) mg/dL Magnesium 1.7 L (1.8-2.4) mg/dL Blood Type Antibody Screen 07/27/18 Range/Units 06:40 WBC (4.0-11.0) K/uL RBC (4.30-5.90) M/uL Hgb (12.0-16.0) g/dL Hct (36.0-46.0) % MCV (80.0-98.0) fL MCH (27.0-32.0) pg MCHC (31.0-37.0) g/dL RDW Std Deviation (28.0-62.0) fl RDW Coeff of [place] (11.0-15.0) % Plt Count (150-400) K/uL MPV (7.40-12.00) fL Neut % (Auto) (48.0-80.0) % Lymph % (Auto) (16.0-40.0) % [place] % (Auto) (0.0-15.0) % Eos % (Auto) (0.0-7.0) % Baso % (Auto) (0.0-1.5) % Neut # (Auto) (1.4-5.7) K/uL Lymph # (Auto) (0.6-2.4) K/uL [place] # (Auto) (0.0-0.8) K/uL Eos # (Auto) (0.0-0.7) K/uL Baso # (Auto) (0.0-0.1) K/uL Nucleated RBC % /100WBC Nucleated RBCs # K/uL Sodium (136-145) mmol/L Potassium (3.5-5.1) mmol/L Chloride (98-107) mmol/L Carbon Dioxide (21.0-32.0) mmol/L BUN (7.0-18.0) mg/dL Creatinine (0.6-1.0) mg/dL Est Cr Clr Drug Dosing mL/min Estimated GFR (MDRD) ml/min Glucose (74-106) mg/dL POC Glucose 124 H (60-110) mg/dL Calcium (8.5-10.1) mg/dL Magnesium (1.8-2.4) mg/dL Blood Type Antibody Screen Med Orders - Current: Current Medications Al Hydroxide/Mg Hydroxide (Mag-Al Plus) 30 ml PO Q4H PRN PRN Reason: Indigestion Aspirin (Ecotrin) 325 mg PO BID [facility] Bisacodyl (Dulcolax) 10 mg RECTAL DAILY PRN PRN Reason: Constipation Calcium Carbonate/Glycine (Tums) 1,000 mg PO DAILY [facility] Celecoxib (Celebrex) 200 mg PO BID [facility] Chlorthalidone (Chlorthalidone) 25 mg PO DAILY [facility] Diphenhydramine HCl (Benadryl) 25 - 50 mg PO Q6H PRN PRN Reason: Itching Docusate Sodium (Colace) 100 mg PO BID PRN PRN Reason: Constipation Famotidine (Pepcid) 40 mg PO DAILY [facility] Hydromorphone HCl (Dilaudid) 0.5 - 1 mg IVPUSH Q3H PRN PRN Reason: Pain Lactated Ringer's (Ringers, Lactated) 1,000 mls @ 100 mls/hr IV ASDIRECTED [facility] Last Admin: 07/26/18 21:22 Dose: 100 mls/hr Magnesium Sulfate 2 gm/ Premix 50 mls @ 50 mls/hr IV ONETIME ONE Stop: 07/27/18 09:17 Insulin Aspart (Novolog) 0 unit SUBCUT TIDAC [facility]; Protocol Last Admin: 07/27/18 07:48 Dose: Not Given Lisinopril (Prinivil) 40 mg PO DAILY [facility] Magnesium Hydroxide (Milk Of Magnesia) 30 ml PO DAILY [facility] Ondansetron HCl (Zofran) 4 mg IVPUSH Q6H PRN PRN Reason: Nausea/Vomiting Last Admin: 07/27/18 08:15 Dose: 4 mg Oxycodone/Acetaminophen (Percocet 325-5 Mg) 1 - 2 tab PO Q4H PRN PRN Reason: Pain Premarin Vaginal (Cream) 1 each VAG Q2D@2100 [facility] Potassium Chloride (Klor-Con M20) 20 meq PO DAILY [facility] Scopolamine (Transderm-Scop) 1.5 mg TRDERM ONARRIVE [facility] Last Admin: 07/26/18 10:14 Dose: 1.5 mg Sodium Chloride (Saline Flush) 10 ml FLUSH ASDIRECTED PRN PRN Reason: Keep Vein Open Sodium Chloride (Saline Flush) 2.5 ml FLUSH ASDIRECTED PRN PRN Reason: Keep Vein Open Discontinued Medications Cefazolin Sodium (Ancef) Confirm Administered Dose 2 gm .ROUTE .STK-MED ONE Stop: 07/26/18 09:05 Ephedrine Sulfate (Ephedrine Sulfate) Confirm Administered Dose 50 mg .ROUTE .STK-MED ONE Stop: 07/26/18 11:14 Famotidine (Pepcid) 40 mg IVPUSH ONARRIVE [facility] Last Admin: 07/26/18 10:20 Dose: 40 mg Fentanyl (Sublimaze) Confirm Administered Dose 100 mcg .ROUTE .STK-MED ONE Stop: 07/26/18 09:08 Glycopyrrolate (Robinul) Confirm Administered Dose 0.2 mg .ROUTE .STK-MED ONE Stop: 07/26/18 11:00 Hydromorphone HCl (Dilaudid) 0.5 - 1 mg IVPUSH Q3H PRN PRN Reason: Pain Acetaminophen 1,000 mg/ Premix 100 mls @ 400 mls/hr IV ONARRIVE [facility] Last Admin: 07/26/18 10:20 Dose: 400 mls/hr Cefazolin Sodium/Dextrose 2 gm (/ Premix) 50 mls @ 100 mls/hr IV ONCALL [facility] Ropivacaine 49.25 ml/Ketorolac Tromethamine 30 mg/Epinephrine HCl 0.5 mg/ Clonidine HCl 80 mcg/ Sodium Chloride 75 mls @ 50 mls/sec INJECT ASDIRECTED [facility] Tranexamic Acid 2,000 mg/ (Sodium Chloride) 120 mls @ 600 mls/hr IV ASDIRECTED ONE Stop: 07/26/18 08:11 Last Admin: 07/26/18 17:23 Dose: Not Given Ropivacaine 49.25 ml/Ketorolac Tromethamine 30 mg/Epinephrine HCl 0.5 mg/ Sodium Chloride 75 mls @ 37.5 mls/min INJECT ASDIRECTED [facility] Acetaminophen 1,000 mg/ Premix 100 mls @ 400 mls/hr IV Q6H [facility] Stop: 07/27/18 04:14 Last Admin: 07/27/18 04:09 Dose: 400 mls/hr Cefazolin Sodium/Dextrose 2 gm (/ Premix) 50 mls @ 100 mls/hr IV Q8H [facility] Stop: 07/27/18 03:29 Last Admin: 07/27/18 02:39 Dose: 100 mls/hr Ketorolac Tromethamine (Toradol) 15 mg IVPUSH Q6H [facility] Stop: 07/27/18 05:00 Last Admin: 07/27/18 00:51 Dose: 15 mg Midazolam HCl (Versed 1 Mg/Ml) Confirm Administered Dose 4 mg .ROUTE .STK-MED ONE Stop: 07/26/18 09:07 Midazolam HCl (Versed 1 Mg/Ml) Confirm Administered Dose 2 mg .ROUTE .STK-MED ONE Stop: 07/26/18 10:34 Oxycodone HCl (Oxycodone) 5 - 10 mg PO Q4H PRN PRN Reason: Pain Stop: 07/27/18 06:00 Last Admin: 07/27/18 02:40 Dose: 10 mg Propofol (Diprivan 20 Ml) Confirm Administered Dose 200 mg .ROUTE .STK-MED ONE Stop: 07/26/18 09:13 Propofol (Diprivan 20 Ml) Confirm Administered Dose 200 mg .ROUTE .STK-MED ONE Stop: 07/26/18 09:14 Tranexamic Acid (Cyklokapron) Confirm Administered Dose 2,000 mg .ROUTE .STK- MED ONE Stop: 07/26/18 08:06 - Exam Wound/Incisions: Dressing Dry and Intact, No Drainage General: Alert, Oriented, Cooperative, No Acute Distress Lungs: Normal Respiratory Effort Cardiovascular: Regular Rate, Regular Rhythm GI/Abdominal Exam: Soft, Non-Tender Skin: Warm, Dry Neurological: No New Focal Deficit Physical Findings Comment:: Polar therapy device is on the right knee. Her underlying dressings are clean. Active and passive ROM of the right knee is limited due to pain. With passive ROM I do not appreciate any clicking, the motion is smooth. There is no varus or valgus laxity. She has good motor function of the right ankle. Sensation to the right lower extremity is intact and equal to the left lower extremity. - Problem List & Annotations (1) DM type 2 (diabetes mellitus, type 2) SNOMED Code(s): 07193158 Code(s): E11.9 - TYPE 2 DIABETES MELLITUS WITHOUT COMPLICATIONS Status: Acute Priority: Medium Current Visit: Yes Qualifiers: Diabetes mellitus custodial insulin use: without custodial use Diabetes mellitus complication status: without complication Qualified Code(s): E11.9 - Type 2 diabetes mellitus without complications (2) HTN (hypertension) SNOMED Code(s): 91863225 Code(s): I10 - ESSENTIAL (PRIMARY) HYPERTENSION Status: Acute Current Visit: Yes Qualifiers: Hypertension type: essential hypertension Qualified Code(s): I10 - Essential (primary) hypertension (3) S/P total knee arthroplasty SNOMED Code(s): 9498832917171, 496566262, 7296172512038 Code(s): Z96.659 - PRESENCE OF UNSPECIFIED ARTIFICIAL KNEE JOINT Status: Acute Current Visit: Yes Qualifiers: Laterality: right Qualified Code(s): Z96.651 - Presence of right artificial knee joint - Problem List Review Problem List Initiated/Reviewed/Updated: Yes - My Orders Last 24 Hours: Active Orders 24 hr Category Date Time Status Blood Glucose Check, Bedside [RC] ACBED Care 07/26/18 11:53 Inactive Blood Glucose Check, Bedside [RC] TIDAC Care 07/26/18 13:15 Active Communication Order [RC] PRN Care 07/26/18 11:46 Active Communication Order [RC] PRN Care 07/26/18 11:46 Active Insert Urinary Catheter [OM.PC] Q24H Care 07/26/18 13:45 Ordered Neurovascular Check [RC] Q2HR Care 07/26/18 11:46 Active Notify Provider Consults [RC] ASDIRECTED Care 07/26/18 11:52 Active Notify Provider Vital Signs [RC] ASDIRECTED Care 07/26/18 11:46 Active RT Incentive Spirometry [RC] Q1HWA Care 07/26/18 11:46 Active Urinary Catheter Assessment [RC] ASDIRECTED Care 07/26/18 08:00 Active Urinary Catheter Removal [RC] ASDIRECTED Care 07/27/18 06:00 Active Vital Signs [RC] PER UNIT ROUTINE Care 07/26/18 11:46 Active Wound Care [RC] DAILY Care 07/26/18 11:46 Active Consult to Physician [CONS] Routine Cons 07/26/18 11:46 Active PT Evaluation and Treatment [CONS] Routine Cons 07/26/18 11:46 Active BASIC METABOLIC PANEL,BMP [CHEM] AM Lab 07/28/18 05:11 Ordered BASIC METABOLIC PANEL,BMP [CHEM] AM Lab 07/29/18 05:11 Ordered HEMOGLOBIN/HEMATOCRIT,HH [HEME] DAILY Lab 07/28/18 06:00 Ordered MG [MAGNESIUM] [CHEM] AM Lab 07/28/18 05:11 Ordered MG [MAGNESIUM] [CHEM] AM Lab 07/29/18 05:11 Ordered Acetaminophen/oxyCODONE [Percocet 325-5 MG] Med 07/27/18 06:00 Active 1 - 2 tab PO Q4H PRN Alum Hydrox/Mag Hydrox/Simeth [Mag-Al Plus] Med 07/26/18 11:46 Active 30 ml PO Q4H PRN Aspirin [Ecotrin] Med 07/27/18 09:00 Active 325 mg PO BID Bisacodyl [Dulcolax] Med 07/26/18 11:46 Active 10 mg RECTAL DAILY PRN Calcium Carbonate [Tums] Med 07/27/18 09:00 Ordered 1,000 mg PO DAILY Celecoxib [CeleBREX] Med 07/27/18 09:00 Active 200 mg PO BID Chlorthalidone Med 07/27/18 09:00 Active 25 mg PO DAILY Docusate Sodium [Colace] Med 07/26/18 11:46 Active 100 mg PO BID PRN Famotidine [Pepcid] Med 07/27/18 09:00 Active 40 mg PO DAILY HYDROmorphone [Dilaudid] Med 07/26/18 12:25 Active 0.5 - 1 mg IVPUSH Q3H PRN Insulin Aspart [NovoLOG] Med 07/26/18 17:00 Active See Protocol SUBCUT TIDAC Lisinopril [Prinivil] Med 07/27/18 09:00 Active 40 mg PO DAILY Magnesium Hydroxide [Milk of Magnesia] Med 07/27/18 09:00 Active 30 ml PO DAILY Magnesium Sulfate/Water [Magnesium Sulfate 2 GM in Med 07/27/18 08:18 Ordered Water 50 ML] 2 gm Premix Bag 1 bag IV ONETIME Ondansetron [Zofran] Med 07/26/18 11:46 Active 4 mg IVPUSH Q6H PRN Patient's Own Medication [Ptom] Med 07/27/18 21:00 Active 1 each VAG Q2D@2100 Potassium Chloride [Klor-Con M20] Med 07/27/18 09:00 Active 20 meq PO DAILY Sodium Chloride 0.9% [Saline Flush] Med 07/26/18 11:51 Active 10 ml FLUSH ASDIRECTED PRN Sodium Chloride 0.9% [Saline Flush] Med 07/26/18 11:51 Active 2.5 ml FLUSH ASDIRECTED PRN diphenhydrAMINE [Benadryl] Med 07/26/18 11:46 Active 25 - 50 mg PO Q6H PRN Convert IV to Saline Lock [OM.PC] PRN Oth 07/27/18 06:00 Ordered Ice Therapy [OM.PC] Routine Oth 07/26/18 11:46 Ordered Medication Orders Al Hydroxide/Mg Hydroxide (Mag-Al Plus) 30 ml PO Q4H PRN PRN Reason: Indigestion Aspirin (Ecotrin) 325 mg PO BID [facility] Bisacodyl (Dulcolax) 10 mg RECTAL DAILY PRN PRN Reason: Constipation Calcium Carbonate/Glycine (Tums) 1,000 mg PO DAILY [facility] Celecoxib (Celebrex) 200 mg PO BID [facility] Chlorthalidone (Chlorthalidone) 25 mg PO DAILY [facility] Diphenhydramine HCl (Benadryl) 25 - 50 mg PO Q6H PRN PRN Reason: Itching Docusate Sodium (Colace) 100 mg PO BID PRN PRN Reason: Constipation Famotidine (Pepcid) 40 mg PO DAILY [facility] Hydromorphone HCl (Dilaudid) 0.5 - 1 mg IVPUSH Q3H PRN PRN Reason: Pain Lactated Ringer's (Ringers, Lactated) 1,000 mls @ 100 mls/hr IV ASDIRECTED [facility] Last Admin: 07/26/18 21:22 Dose: 100 mls/hr Infusion: 07/26/18 21:22 Dose: 100 mls/hr Admin: 07/26/18 13:49 Dose: 100 mls/hr Infusion: 07/26/18 13:49 Dose: 100 mls/hr Admin: 07/26/18 10:20 Dose: 100 mls/hr Magnesium Sulfate 2 gm/ Premix 50 mls @ 50 mls/hr IV ONETIME ONE Stop: 07/27/18 09:17 Insulin Aspart (Novolog) 0 unit SUBCUT TIDAC [facility]; Protocol Last Admin: 07/27/18 07:48 Dose: Not Given Admin: 07/26/18 17:40 Dose: Not Given Lisinopril (Prinivil) 40 mg PO DAILY [facility] Magnesium Hydroxide (Milk Of Magnesia) 30 ml PO DAILY [facility] Ondansetron HCl (Zofran) 4 mg IVPUSH Q6H PRN PRN Reason: Nausea/Vomiting Last Admin: 07/27/18 08:15 Dose: 4 mg Oxycodone/Acetaminophen (Percocet 325-5 Mg) 1 - 2 tab PO Q4H PRN PRN Reason: Pain Premarin Vaginal (Cream) 1 each VAG Q2D@2100 [facility] Potassium Chloride (Klor-Con M20) 20 meq PO DAILY [facility] Scopolamine (Transderm-Scop) 1.5 mg TRDERM ONARRIVE [facility] Last Admin: 07/26/18 10:14 Dose: 1.5 mg Sodium Chloride (Saline Flush) 10 ml FLUSH ASDIRECTED PRN PRN Reason: Keep Vein Open Sodium Chloride (Saline Flush) 2.5 ml FLUSH ASDIRECTED PRN PRN Reason: Keep Vein Open - Assessment Assessment (Free Text/Narrative):: POD 1 s/p right total knee. She is progressing appropriately. I have no concerns at this time. - Plan Plan (Free Text/Narrative):: - Continue diabetic diet - Physical therapy, she should be increasing activity and working on ROM exercises. - Dilauded and Percocet PRN for pain - Zofran and Scopolamine patch for nausea - Discontinue IVF - Novolog for DM, blood sugars are controlled this morning at 124. - Aspirin 325mg BID for DVT prophylaxis. - Continue polar therapy, will plan to remove dressings at discharge - Will discuss further plans with Dr. French.
--- NOTE | 2018-07-27 08:32 | PCM.SURGPN ---
<La Smith R - Last Filed: 07/27/18 08:29> - General Info Date of Service: 07/27/18 Date of Surgery/Procedure: 07/26/18 POD#: 1 Functional Status: Reports: Pain Controlled, Tolerating Diet, Ambulating - Review of Systems General: Reports: No Symptoms Pulmonary: Reports: No Symptoms Cardiovascular: Reports: No Symptoms Gastrointestinal: Reports: No Symptoms Musculoskeletal: Reports: Leg Pain Systems Review Comment:: pt up to chair for breakfast did not sleep well d/t discomfort from ying tolerating PO intake well pain controlled more comfortable after ying removal no specific concerns today - Patient Data Vitals - Most Recent: Last Vital Signs Temp 97.0 F 07/27/18 04:00 Pulse 72 07/27/18 04:00 Resp 14 07/27/18 04:00 BP 120/63 07/27/18 04:00 Pulse Ox 93 L 07/27/18 04:00 Weight - Most Recent: 83.915 kg I&O - Last 24 Hours: Intake & Output 07/26/18 07/27/18 07/27/18 22:59 06:59 14:59 Intake Total 1000 2515 Output Total 350 1200 Balance 650 1315 Lab Results Last 24 Hrs: Laboratory Results - last 24 hr 07/26/18 07/26/18 07/26/18 Range/Units 10:04 10:23 13:32 WBC 7.85 (4.0-11.0) K/uL RBC 4.79 (4.30-5.90) M/uL Hgb 13.2 (12.0-16.0) g/dL Hct 40.8 (36.0-46.0) % MCV 85.2 (80.0-98.0) fL MCH 27.6 (27.0-32.0) pg MCHC 32.4 (31.0-37.0) g/dL RDW Std Deviation 47.0 (28.0-62.0) fl RDW Coeff of [place] 15 (11.0-15.0) % Plt Count 212 (150-400) K/uL MPV 10.60 (7.40-12.00) fL Neut % (Auto) 64.9 (48.0-80.0) % Lymph % (Auto) 26.2 (16.0-40.0) % [place] % (Auto) 6.8 (0.0-15.0) % Eos % (Auto) 2.0 (0.0-7.0) % Baso % (Auto) 0.1 (0.0-1.5) % Neut # (Auto) 5.1 (1.4-5.7) K/uL Lymph # (Auto) 2.1 (0.6-2.4) K/uL [place] # (Auto) 0.5 (0.0-0.8) K/uL Eos # (Auto) 0.2 (0.0-0.7) K/uL Baso # (Auto) 0.0 (0.0-0.1) K/uL Nucleated RBC % 0.0 /100WBC Nucleated RBCs # 0 K/uL Sodium (136-145) mmol/L Potassium (3.5-5.1) mmol/L Chloride (98-107) mmol/L Carbon Dioxide (21.0-32.0) mmol/L BUN (7.0-18.0) mg/dL Creatinine (0.6-1.0) mg/dL Est Cr Clr Drug Dosing mL/min Estimated GFR (MDRD) ml/min Glucose (74-106) mg/dL POC Glucose 102 (60-110) mg/dL Calcium (8.5-10.1) mg/dL Magnesium (1.8-2.4) mg/dL Blood Type O POSITIVE Antibody Screen NEGATIVE 07/26/18 07/26/18 07/26/18 Range/Units 13:32 13:32 17:19 WBC (4.0-11.0) K/uL RBC (4.30-5.90) M/uL Hgb (12.0-16.0) g/dL Hct (36.0-46.0) % MCV (80.0-98.0) fL MCH (27.0-32.0) pg MCHC (31.0-37.0) g/dL RDW Std Deviation (28.0-62.0) fl RDW Coeff of [place] (11.0-15.0) % Plt Count (150-400) K/uL MPV (7.40-12.00) fL Neut % (Auto) (48.0-80.0) % Lymph % (Auto) (16.0-40.0) % [place] % (Auto) (0.0-15.0) % Eos % (Auto) (0.0-7.0) % Baso % (Auto) (0.0-1.5) % Neut # (Auto) (1.4-5.7) K/uL Lymph # (Auto) (0.6-2.4) K/uL [place] # (Auto) (0.0-0.8) K/uL Eos # (Auto) (0.0-0.7) K/uL Baso # (Auto) (0.0-0.1) K/uL Nucleated RBC % /100WBC Nucleated RBCs # K/uL Sodium 142 (136-145) mmol/L Potassium 3.4 L (3.5-5.1) mmol/L Chloride 106 (98-107) mmol/L Carbon Dioxide 28.2 (21.0-32.0) mmol/L BUN 19 H (7.0-18.0) mg/dL Creatinine 1.0 (0.6-1.0) mg/dL Est Cr Clr Drug Dosing 49.80 mL/min Estimated GFR (MDRD) 55.5 ml/min Glucose 125 H (74-106) mg/dL POC Glucose 102 (60-110) mg/dL Calcium 8.0 L (8.5-10.1) mg/dL Magnesium 1.9 (1.8-2.4) mg/dL Blood Type Antibody Screen 07/26/18 07/27/18 07/27/18 Range/Units 20:45 04:45 04:45 WBC (4.0-11.0) K/uL RBC (4.30-5.90) M/uL Hgb 11.0 L (12.0-16.0) g/dL Hct 34.1 L (36.0-46.0) % MCV (80.0-98.0) fL MCH (27.0-32.0) pg MCHC (31.0-37.0) g/dL RDW Std Deviation (28.0-62.0) fl RDW Coeff of [place] (11.0-15.0) % Plt Count (150-400) K/uL MPV (7.40-12.00) fL Neut % (Auto) (48.0-80.0) % Lymph % (Auto) (16.0-40.0) % [place] % (Auto) (0.0-15.0) % Eos % (Auto) (0.0-7.0) % Baso % (Auto) (0.0-1.5) % Neut # (Auto) (1.4-5.7) K/uL Lymph # (Auto) (0.6-2.4) K/uL [place] # (Auto) (0.0-0.8) K/uL Eos # (Auto) (0.0-0.7) K/uL Baso # (Auto) (0.0-0.1) K/uL Nucleated RBC % /100WBC Nucleated RBCs # K/uL Sodium 138 (136-145) mmol/L Potassium 3.7 (3.5-5.1) mmol/L Chloride 104 (98-107) mmol/L Carbon Dioxide 26.6 (21.0-32.0) mmol/L BUN 15 (7.0-18.0) mg/dL Creatinine 1.0 (0.6-1.0) mg/dL Est Cr Clr Drug Dosing 49.80 mL/min Estimated GFR (MDRD) 55.5 ml/min Glucose 115 H (74-106) mg/dL POC Glucose 111 H (60-110) mg/dL Calcium 7.5 L (8.5-10.1) mg/dL Magnesium 1.7 L (1.8-2.4) mg/dL Blood Type Antibody Screen 07/27/18 Range/Units 06:40 WBC (4.0-11.0) K/uL RBC (4.30-5.90) M/uL Hgb (12.0-16.0) g/dL Hct (36.0-46.0) % MCV (80.0-98.0) fL MCH (27.0-32.0) pg MCHC (31.0-37.0) g/dL RDW Std Deviation (28.0-62.0) fl RDW Coeff of [place] (11.0-15.0) % Plt Count (150-400) K/uL MPV (7.40-12.00) fL Neut % (Auto) (48.0-80.0) % Lymph % (Auto) (16.0-40.0) % [place] % (Auto) (0.0-15.0) % Eos % (Auto) (0.0-7.0) % Baso % (Auto) (0.0-1.5) % Neut # (Auto) (1.4-5.7) K/uL Lymph # (Auto) (0.6-2.4) K/uL [place] # (Auto) (0.0-0.8) K/uL Eos # (Auto) (0.0-0.7) K/uL Baso # (Auto) (0.0-0.1) K/uL Nucleated RBC % /100WBC Nucleated RBCs # K/uL Sodium (136-145) mmol/L Potassium (3.5-5.1) mmol/L Chloride (98-107) mmol/L Carbon Dioxide (21.0-32.0) mmol/L BUN (7.0-18.0) mg/dL Creatinine (0.6-1.0) mg/dL Est Cr Clr Drug Dosing mL/min Estimated GFR (MDRD) ml/min Glucose (74-106) mg/dL POC Glucose 124 H (60-110) mg/dL Calcium (8.5-10.1) mg/dL Magnesium (1.8-2.4) mg/dL Blood Type Antibody Screen Med Orders - Current: Current Medications Al Hydroxide/Mg Hydroxide (Mag-Al Plus) 30 ml PO Q4H PRN PRN Reason: Indigestion Aspirin (Ecotrin) 325 mg PO BID MARIA D Bisacodyl (Dulcolax) 10 mg RECTAL DAILY PRN PRN Reason: Constipation Calcium Carbonate/Glycine (Tums) 1,000 mg PO DAILY MARIA D Celecoxib (Celebrex) 200 mg PO BID MARIA D Chlorthalidone (Chlorthalidone) 25 mg PO DAILY [facility] D Diphenhydramine HCl (Benadryl) 25 - 50 mg PO Q6H PRN PRN Reason: Itching Docusate Sodium (Colace) 100 mg PO BID PRN PRN Reason: Constipation Famotidine (Pepcid) 40 mg PO DAILY [facility] D Hydromorphone HCl (Dilaudid) 0.5 - 1 mg IVPUSH Q3H PRN PRN Reason: Pain Lactated Ringer's (Ringers, Lactated) 1,000 mls @ 100 mls/hr IV ASDIRECTED [facility] Last Admin: 07/26/18 21:22 Dose: 100 mls/hr Magnesium Sulfate 2 gm/ Premix 50 mls @ 50 mls/hr IV ONETIME ONE Stop: 07/27/18 09:17 Insulin Aspart (Novolog) 0 unit SUBCUT TIDAC [facility]; Protocol Last Admin: 07/27/18 07:48 Dose: Not Given Lisinopril (Prinivil) 40 mg PO DAILY [facility] Magnesium Hydroxide (Milk Of Magnesia) 30 ml PO DAILY [facility] Ondansetron HCl (Zofran) 4 mg IVPUSH Q6H PRN PRN Reason: Nausea/Vomiting Last Admin: 07/27/18 08:15 Dose: 4 mg Oxycodone/Acetaminophen (Percocet 325-5 Mg) 1 - 2 tab PO Q4H PRN PRN Reason: Pain Premarin Vaginal (Cream) 1 each VAG Q2D@2100 [facility] Potassium Chloride (Klor-Con M20) 20 meq PO DAILY [facility] Scopolamine (Transderm-Scop) 1.5 mg TRDERM ONARRIVE [facility] Last Admin: 07/26/18 10:14 Dose: 1.5 mg Sodium Chloride (Saline Flush) 10 ml FLUSH ASDIRECTED PRN PRN Reason: Keep Vein Open Sodium Chloride (Saline Flush) 2.5 ml FLUSH ASDIRECTED PRN PRN Reason: Keep Vein Open Discontinued Medications Cefazolin Sodium (Ancef) Confirm Administered Dose 2 gm .ROUTE .STK-MED ONE Stop: 07/26/18 09:05 Ephedrine Sulfate (Ephedrine Sulfate) Confirm Administered Dose 50 mg .ROUTE .STK-MED ONE Stop: 07/26/18 11:14 Famotidine (Pepcid) 40 mg IVPUSH ONARRIVE [facility] Last Admin: 07/26/18 10:20 Dose: 40 mg Fentanyl (Sublimaze) Confirm Administered Dose 100 mcg .ROUTE .STK-MED ONE Stop: 07/26/18 09:08 Glycopyrrolate (Robinul) Confirm Administered Dose 0.2 mg .ROUTE .STK-MED ONE Stop: 07/26/18 11:00 Hydromorphone HCl (Dilaudid) 0.5 - 1 mg IVPUSH Q3H PRN PRN Reason: Pain Acetaminophen 1,000 mg/ Premix 100 mls @ 400 mls/hr IV ONARRIVE [facility] Last Admin: 07/26/18 10:20 Dose: 400 mls/hr Cefazolin Sodium/Dextrose 2 gm (/ Premix) 50 mls @ 100 mls/hr IV ONCALL [facility] Ropivacaine 49.25 ml/Ketorolac Tromethamine 30 mg/Epinephrine HCl 0.5 mg/ Clonidine HCl 80 mcg/ Sodium Chloride 75 mls @ 50 mls/sec INJECT ASDIRECTED [facility] Tranexamic Acid 2,000 mg/ (Sodium Chloride) 120 mls @ 600 mls/hr IV ASDIRECTED ONE Stop: 07/26/18 08:11 Last Admin: 07/26/18 17:23 Dose: Not Given Ropivacaine 49.25 ml/Ketorolac Tromethamine 30 mg/Epinephrine HCl 0.5 mg/ Sodium Chloride 75 mls @ 37.5 mls/min INJECT ASDIRECTED [facility] Acetaminophen 1,000 mg/ Premix 100 mls @ 400 mls/hr IV Q6H [facility] Stop: 07/27/18 04:14 Last Admin: 07/27/18 04:09 Dose: 400 mls/hr Cefazolin Sodium/Dextrose 2 gm (/ Premix) 50 mls @ 100 mls/hr IV Q8H [facility] Stop: 07/27/18 03:29 Last Admin: 07/27/18 02:39 Dose: 100 mls/hr Ketorolac Tromethamine (Toradol) 15 mg IVPUSH Q6H [facility] Stop: 07/27/18 05:00 Last Admin: 07/27/18 00:51 Dose: 15 mg Midazolam HCl (Versed 1 Mg/Ml) Confirm Administered Dose 4 mg .ROUTE .STK-MED ONE Stop: 07/26/18 09:07 Midazolam HCl (Versed 1 Mg/Ml) Confirm Administered Dose 2 mg .ROUTE .STK-MED ONE Stop: 07/26/18 10:34 Oxycodone HCl (Oxycodone) 5 - 10 mg PO Q4H PRN PRN Reason: Pain Stop: 07/27/18 06:00 Last Admin: 07/27/18 02:40 Dose: 10 mg Propofol (Diprivan 20 Ml) Confirm Administered Dose 200 mg .ROUTE .STK-MED ONE Stop: 07/26/18 09:13 Propofol (Diprivan 20 Ml) Confirm Administered Dose 200 mg .ROUTE .STK-MED ONE Stop: 07/26/18 09:14 Tranexamic Acid (Cyklokapron) Confirm Administered Dose 2,000 mg .ROUTE .STK- MED ONE Stop: 07/26/18 08:06 - Exam Wound/Incisions: Dressing Dry and Intact General: Alert, Oriented Cardiovascular: Regular Rate, Regular Rhythm Extremities: Other (exam RLE - at/ehl/gastroc 5/5, dp 2+, sensation intact distally) Physical Findings Comment:: vss, afeb uo 1700mL hgb 11.0 - Problem List & Annotations (1) S/P total knee arthroplasty SNOMED Code(s): 9633047741329, 367587664, 8886508099424 Code(s): Z96.659 - PRESENCE OF UNSPECIFIED ARTIFICIAL KNEE JOINT Status: Acute Current Visit: Yes Qualifiers: - Problem List Review Problem List Initiated/Reviewed/Updated: Yes - My Orders Last 24 Hours: Active Orders 24 hr Category Date Time Status Blood Glucose Check, Bedside [RC] ACBED Care 07/26/18 11:53 Inactive Blood Glucose Check, Bedside [RC] TIDAC Care 07/26/18 13:15 Active Communication Order [RC] PRN Care 07/26/18 11:46 Active Communication Order [RC] PRN Care 07/26/18 11:46 Active Insert Urinary Catheter [OM.PC] Q24H Care 07/26/18 13:45 Ordered Neurovascular Check [RC] Q2HR Care 07/26/18 11:46 Active Notify Provider Consults [RC] ASDIRECTED Care 07/26/18 11:52 Active Notify Provider Vital Signs [RC] ASDIRECTED Care 07/26/18 11:46 Active RT Incentive Spirometry [RC] Q1HWA Care 07/26/18 11:46 Active Urinary Catheter Assessment [RC] ASDIRECTED Care 07/26/18 08:00 Active Urinary Catheter Removal [RC] ASDIRECTED Care 07/27/18 06:00 Active Vital Signs [RC] PER UNIT ROUTINE Care 07/26/18 11:46 Active Wound Care [RC] DAILY Care 07/26/18 11:46 Active Consult to Physician [CONS] Routine Cons 07/26/18 11:46 Active PT Evaluation and Treatment [CONS] Routine Cons 07/26/18 11:46 Active BASIC METABOLIC PANEL,BMP [CHEM] AM Lab 07/28/18 05:11 Ordered BASIC METABOLIC PANEL,BMP [CHEM] AM Lab 07/29/18 05:11 Ordered HEMOGLOBIN/HEMATOCRIT,HH [HEME] DAILY Lab 07/28/18 06:00 Ordered MG [MAGNESIUM] [CHEM] AM Lab 07/28/18 05:11 Ordered MG [MAGNESIUM] [CHEM] AM Lab 07/29/18 05:11 Ordered Acetaminophen/oxyCODONE [Percocet 325-5 MG] Med 07/27/18 06:00 Active 1 - 2 tab PO Q4H PRN Alum Hydrox/Mag Hydrox/Simeth [Mag-Al Plus] Med 07/26/18 11:46 Active 30 ml PO Q4H PRN Aspirin [Ecotrin] Med 07/27/18 09:00 Active 325 mg PO BID Bisacodyl [Dulcolax] Med 07/26/18 11:46 Active 10 mg RECTAL DAILY PRN Calcium Carbonate [Tums] Med 07/27/18 09:00 Active 1,000 mg PO DAILY Celecoxib [CeleBREX] Med 07/27/18 09:00 Active 200 mg PO BID Chlorthalidone Med 07/27/18 09:00 Active 25 mg PO DAILY Docusate Sodium [Colace] Med 07/26/18 11:46 Active 100 mg PO BID PRN Famotidine [Pepcid] Med 07/27/18 09:00 Active 40 mg PO DAILY HYDROmorphone [Dilaudid] Med 07/26/18 12:25 Active 0.5 - 1 mg IVPUSH Q3H PRN Insulin Aspart [NovoLOG] Med 07/26/18 17:00 Active See Protocol SUBCUT TIDAC Lisinopril [Prinivil] Med 07/27/18 09:00 Active 40 mg PO DAILY Magnesium Hydroxide [Milk of Magnesia] Med 07/27/18 09:00 Active 30 ml PO DAILY Magnesium Sulfate/Water [Magnesium Sulfate 2 GM in Med 07/27/18 08:18 Active Water 50 ML] 2 gm Premix Bag 1 bag IV ONETIME Ondansetron [Zofran] Med 07/26/18 11:46 Active 4 mg IVPUSH Q6H PRN Patient's Own Medication [Ptom] Med 07/27/18 21:00 Active 1 each VAG Q2D@2100 Potassium Chloride [Klor-Con M20] Med 07/27/18 09:00 Active 20 meq PO DAILY Sodium Chloride 0.9% [Saline Flush] Med 07/26/18 11:51 Active 10 ml FLUSH ASDIRECTED PRN Sodium Chloride 0.9% [Saline Flush] Med 07/26/18 11:51 Active 2.5 ml FLUSH ASDIRECTED PRN diphenhydrAMINE [Benadryl] Med 07/26/18 11:46 Active 25 - 50 mg PO Q6H PRN Convert IV to Saline Lock [OM.PC] PRN Oth 07/27/18 06:00 Ordered Ice Therapy [OM.PC] Routine Oth 07/26/18 11:46 Ordered Medication Orders Al Hydroxide/Mg Hydroxide (Mag-Al Plus) 30 ml PO Q4H PRN PRN Reason: Indigestion Aspirin (Ecotrin) 325 mg PO BID MARIA D Bisacodyl (Dulcolax) 10 mg RECTAL DAILY PRN PRN Reason: Constipation Calcium Carbonate/Glycine (Tums) 1,000 mg PO DAILY [facility] D Celecoxib (Celebrex) 200 mg PO BID [facility] D Chlorthalidone (Chlorthalidone) 25 mg PO DAILY [facility] D Diphenhydramine HCl (Benadryl) 25 - 50 mg PO Q6H PRN PRN Reason: Itching Docusate Sodium (Colace) 100 mg PO BID PRN PRN Reason: Constipation Famotidine (Pepcid) 40 mg PO DAILY [facility] Hydromorphone HCl (Dilaudid) 0.5 - 1 mg IVPUSH Q3H PRN PRN Reason: Pain Lactated Ringer's (Ringers, Lactated) 1,000 mls @ 100 mls/hr IV ASDIRECTED [facility] D Last Admin: 07/26/18 21:22 Dose: 100 mls/hr Infusion: 07/26/18 21:22 Dose: 100 mls/hr Admin: 07/26/18 13:49 Dose: 100 mls/hr Infusion: 07/26/18 13:49 Dose: 100 mls/hr Admin: 07/26/18 10:20 Dose: 100 mls/hr Magnesium Sulfate 2 gm/ Premix 50 mls @ 50 mls/hr IV ONETIME ONE Stop: 07/27/18 09:17 Insulin Aspart (Novolog) 0 unit SUBCUT TIDAC [facility]; Protocol Last Admin: 07/27/18 07:48 Dose: Not Given Admin: 07/26/18 17:40 Dose: Not Given Lisinopril (Prinivil) 40 mg PO DAILY [facility] Magnesium Hydroxide (Milk Of Magnesia) 30 ml PO DAILY [facility] Ondansetron HCl (Zofran) 4 mg IVPUSH Q6H PRN PRN Reason: Nausea/Vomiting Last Admin: 07/27/18 08:15 Dose: 4 mg Oxycodone/Acetaminophen (Percocet 325-5 Mg) 1 - 2 tab PO Q4H PRN PRN Reason: Pain Premarin Vaginal (Cream) 1 each VAG Q2D@2100 [facility] Potassium Chloride (Klor-Con M20) 20 meq PO DAILY [facility] Scopolamine (Transderm-Scop) 1.5 mg TRDERM ONARRIVE [facility] D Last Admin: 07/26/18 10:14 Dose: 1.5 mg Sodium Chloride (Saline Flush) 10 ml FLUSH ASDIRECTED PRN PRN Reason: Keep Vein Open Sodium Chloride (Saline Flush) 2.5 ml FLUSH ASDIRECTED PRN PRN Reason: Keep Vein Open - Assessment Assessment (Free Text/Narrative):: POD#1 R TKA acute posthemorrhagic anemia - Plan Plan (Free Text/Narrative):: DC IV fluids - saline lock IV DC ying DC [employer] - morphine IV prn breakthrough pain DC oxycodone - percocet 5/325 prn available ASA 325mg PO BID as DVT prophylaxis will change dressing to aquacel tomorrow PT today pt has wheeled walker or script has been written anticipate 72 hour stay until transfer to SNF for post-op rehab pt will require FWW for safe mobility/stability until increased strength/gait independence s/p TKA - has been safely mobilizing in room with FWW. d/ch medications written <Lana French R - Last Filed: 07/27/18 17:11> - Patient Data Vitals - Most Recent: Last Vital Signs Temp 97.8 F 07/27/18 16:00 Pulse 66 07/27/18 16:00 Resp 18 07/27/18 16:00 BP 99/54 L 07/27/18 16:00 Pulse Ox 94 L 07/27/18 16:00 I&O - Last 24 Hours: Intake & Output 07/27/18 07/27/18 07/27/18 06:59 14:59 22:59 Intake Total 2515 50 620 Output Total 1200 200 Balance 1315 50 420 Lab Results Last 24 Hrs: Laboratory Results - last 24 hr 07/26/18 07/26/18 07/27/18 Range/Units 17:19 20:45 04:45 Hgb 11.0 L (12.0-16.0) g/dL Hct 34.1 L (36.0-46.0) % Sodium (136-145) mmol/L Potassium (3.5-5.1) mmol/L Chloride (98-107) mmol/L Carbon Dioxide (21.0-32.0) mmol/L BUN (7.0-18.0) mg/dL Creatinine (0.6-1.0) mg/dL Est Cr Clr Drug Dosing mL/min Estimated GFR (MDRD) ml/min Glucose (74-106) mg/dL POC Glucose 102 111 H (60-110) mg/dL Calcium (8.5-10.1) mg/dL Magnesium (1.8-2.4) mg/dL 07/27/18 07/27/18 07/27/18 Range/Units 04:45 06:40 12:26 Hgb (12.0-16.0) g/dL Hct (36.0-46.0) % Sodium 138 (136-145) mmol/L Potassium 3.7 (3.5-5.1) mmol/L Chloride 104 (98-107) mmol/L Carbon Dioxide 26.6 (21.0-32.0) mmol/L BUN 15 (7.0-18.0) mg/dL Creatinine 1.0 (0.6-1.0) mg/dL Est Cr Clr Drug Dosing 49.80 mL/min Estimated GFR (MDRD) 55.5 ml/min Glucose 115 H (74-106) mg/dL POC Glucose 124 H 134 H (60-110) mg/dL Calcium 7.5 L (8.5-10.1) mg/dL Magnesium 1.7 L (1.8-2.4) mg/dL 07/27/18 Range/Units 16:29 Hgb (12.0-16.0) g/dL Hct (36.0-46.0) % Sodium (136-145) mmol/L Potassium (3.5-5.1) mmol/L Chloride (98-107) mmol/L Carbon Dioxide (21.0-32.0) mmol/L BUN (7.0-18.0) mg/dL Creatinine (0.6-1.0) mg/dL Est Cr Clr Drug Dosing mL/min Estimated GFR (MDRD) ml/min Glucose (74-106) mg/dL POC Glucose 140 H (60-110) mg/dL Calcium (8.5-10.1) mg/dL Magnesium (1.8-2.4) mg/dL Med Orders - Current: Current Medications Al Hydroxide/Mg Hydroxide (Mag-Al Plus) 30 ml PO Q4H PRN PRN Reason: Indigestion Aspirin (Ecotrin) 325 mg PO BID [facility] Last Admin: 07/27/18 08:59 Dose: 325 mg Bisacodyl (Dulcolax) 10 mg RECTAL DAILY PRN PRN Reason: Constipation Calcium Carbonate/Glycine (Tums) 1,000 mg PO DAILY [facility] Last Admin: 07/27/18 09:00 Dose: 1,000 mg Celecoxib (Celebrex) 200 mg PO BID [facility] Last Admin: 07/27/18 09:01 Dose: 200 mg Chlorthalidone (Chlorthalidone) 25 mg PO DAILY [facility] Last Admin: 07/27/18 08:58 Dose: 25 mg Diphenhydramine HCl (Benadryl) 25 - 50 mg PO Q6H PRN PRN Reason: Itching Docusate Sodium (Colace) 100 mg PO BID PRN PRN Reason: Constipation Famotidine (Pepcid) 40 mg PO DAILY [facility] Last Admin: 07/27/18 09:00 Dose: 40 mg Hydromorphone HCl (Dilaudid) 0.5 - 1 mg IVPUSH Q3H PRN PRN Reason: Pain Last Admin: 07/27/18 12:24 Dose: 1 mg Insulin Aspart (Novolog) 0 unit SUBCUT TIDAC [facility]; Protocol Last Admin: 07/27/18 16:44 Dose: Not Given Lisinopril (Prinivil) 40 mg PO DAILY [facility] Last Admin: 07/27/18 08:57 Dose: 40 mg Magnesium Hydroxide (Milk Of Magnesia) 30 ml PO DAILY [facility] Last Admin: 07/27/18 09:02 Dose: Not Given Ondansetron HCl (Zofran) 4 mg IVPUSH Q6H PRN PRN Reason: Nausea/Vomiting Last Admin: 07/27/18 16:08 Dose: 4 mg Oxycodone/Acetaminophen (Percocet 325-5 Mg) 1 - 2 tab PO Q4H PRN PRN Reason: Pain Last Admin: 07/27/18 08:55 Dose: 2 tab Premarin Vaginal (Cream) 1 each VAG Q2D@2100 [facility] Potassium Chloride (Klor-Con M20) 20 meq PO DAILY [facility] Last Admin: 07/27/18 08:59 Dose: 20 meq Scopolamine (Transderm-Scop) 1.5 mg TRDERM ONARRIVE [facility] Last Admin: 07/26/18 10:14 Dose: 1.5 mg Sodium Chloride (Saline Flush) 10 ml FLUSH ASDIRECTED PRN PRN Reason: Keep Vein Open Sodium Chloride (Saline Flush) 2.5 ml FLUSH ASDIRECTED PRN PRN Reason: Keep Vein Open Discontinued Medications Cefazolin Sodium (Ancef) Confirm Administered Dose 2 gm .ROUTE .STK-MED ONE Stop: 07/26/18 09:05 Ephedrine Sulfate (Ephedrine Sulfate) Confirm Administered Dose 50 mg .ROUTE .STK-MED ONE Stop: 07/26/18 11:14 Famotidine (Pepcid) 40 mg IVPUSH ONARRIVE [facility] [place] Last Admin: 07/26/18 10:20 Dose: 40 mg Fentanyl (Sublimaze) Confirm Administered Dose 100 mcg .ROUTE .STK-MED ONE Stop: 07/26/18 09:08 Glycopyrrolate (Robinul) Confirm Administered Dose 0.2 mg .ROUTE .STK-MED ONE Stop: 07/26/18 11:00 Hydromorphone HCl (Dilaudid) 0.5 - 1 mg IVPUSH Q3H PRN PRN Reason: Pain Acetaminophen 1,000 mg/ Premix 100 mls @ 400 mls/hr IV ONARRIVE [facility] [place] Last Admin: 07/26/18 10:20 Dose: 400 mls/hr Cefazolin Sodium/Dextrose 2 gm (/ Premix) 50 mls @ 100 mls/hr IV ONCALL [facility] [place] Ropivacaine 49.25 ml/Ketorolac Tromethamine 30 mg/Epinephrine HCl 0.5 mg/ Clonidine HCl 80 mcg/ Sodium Chloride 75 mls @ 50 mls/sec INJECT ASDIRECTED [facility] [place] Lactated Ringer's (Ringers, Lactated) 1,000 mls @ 100 mls/hr IV ASDIRECTED [facility] [place] Last Admin: 07/26/18 21:22 Dose: 100 mls/hr Tranexamic Acid 2,000 mg/ (Sodium Chloride) 120 mls @ 600 mls/hr IV ASDIRECTED ONE Stop: 07/26/18 08:11 Last Admin: 07/26/18 17:23 Dose: Not Given Ropivacaine 49.25 ml/Ketorolac Tromethamine 30 mg/Epinephrine HCl 0.5 mg/ Sodium Chloride 75 mls @ 37.5 mls/min INJECT ASDIRECTED [facility] [place] Acetaminophen 1,000 mg/ Premix 100 mls @ 400 mls/hr IV Q6H [facility] [place] Stop: 07/27/18 04:14 Last Admin: 07/27/18 04:09 Dose: 400 mls/hr Cefazolin Sodium/Dextrose 2 gm (/ Premix) 50 mls @ 100 mls/hr IV Q8H [facility] [place] Stop: 07/27/18 03:29 Last Admin: 07/27/18 02:39 Dose: 100 mls/hr Magnesium Sulfate 2 gm/ Premix 50 mls @ 50 mls/hr IV ONETIME ONE Stop: 07/27/18 09:17 Last Admin: 07/27/18 08:46 Dose: 50 mls/hr Ketorolac Tromethamine (Toradol) 15 mg IVPUSH Q6H [facility] [place] Stop: 07/27/18 05:00 Last Admin: 07/27/18 00:51 Dose: 15 mg Midazolam HCl (Versed 1 Mg/Ml) Confirm Administered Dose 4 mg .ROUTE .STK-MED ONE Stop: 07/26/18 09:07 Midazolam HCl (Versed 1 Mg/Ml) Confirm Administered Dose 2 mg .ROUTE .STK-MED ONE Stop: 07/26/18 10:34 Oxycodone HCl (Oxycodone) 5 - 10 mg PO Q4H PRN PRN Reason: Pain Stop: 07/27/18 06:00 Last Admin: 07/27/18 02:40 Dose: 10 mg Propofol (Diprivan 20 Ml) Confirm Administered Dose 200 mg .ROUTE .STK-MED ONE Stop: 07/26/18 09:13 Propofol (Diprivan 20 Ml) Confirm Administered Dose 200 mg .ROUTE .STK-MED ONE Stop: 07/26/18 09:14 Tranexamic Acid (Cyklokapron) Confirm Administered Dose 2,000 mg .ROUTE .STK- MED ONE Stop: 07/26/18 08:06 - My Orders Last 24 Hours: Active Orders 24 hr Category Date Time Status Urinary Catheter Removal [RC] ASDIRECTED Care 07/27/18 06:00 Active BASIC METABOLIC PANEL,BMP [CHEM] AM Lab 07/28/18 05:11 Ordered BASIC METABOLIC PANEL,BMP [CHEM] AM Lab 07/29/18 05:11 Ordered HEMOGLOBIN/HEMATOCRIT,HH [HEME] DAILY Lab 07/28/18 06:00 Ordered MG [MAGNESIUM] [CHEM] AM Lab 07/28/18 05:11 Ordered MG [MAGNESIUM] [CHEM] AM Lab 07/29/18 05:11 Ordered Acetaminophen/oxyCODONE [Percocet 325-5 MG] Med 07/27/18 06:00 Active 1 - 2 tab PO Q4H PRN Aspirin [Ecotrin] Med 07/27/18 09:00 Active 325 mg PO BID Calcium Carbonate [Tums] Med 07/27/18 09:00 Active 1,000 mg PO DAILY Celecoxib [CeleBREX] Med 07/27/18 09:00 Active 200 mg PO BID Chlorthalidone Med 07/27/18 09:00 Active 25 mg PO DAILY Famotidine [Pepcid] Med 07/27/18 09:00 Active 40 mg PO DAILY Insulin Aspart [NovoLOG] Med 07/26/18 17:00 Active See Protocol SUBCUT TIDAC Lisinopril [Prinivil] Med 07/27/18 09:00 Active 40 mg PO DAILY Magnesium Hydroxide [Milk of Magnesia] Med 07/27/18 09:00 Active 30 ml PO DAILY Patient's Own Medication [Ptom] Med 07/27/18 21:00 Active 1 each VAG Q2D@2100 Potassium Chloride [Klor-Con M20] Med 07/27/18 09:00 Active 20 meq PO DAILY Convert IV to Saline Lock [OM.PC] PRN Oth 07/27/18 06:00 Ordered Medication Orders Al Hydroxide/Mg Hydroxide (Mag-Al Plus) 30 ml PO Q4H PRN PRN Reason: Indigestion Aspirin (Ecotrin) 325 mg PO BID [facility] [place] Last Admin: 07/27/18 08:59 Dose: 325 mg Bisacodyl (Dulcolax) 10 mg RECTAL DAILY PRN PRN Reason: Constipation Calcium Carbonate/Glycine (Tums) 1,000 mg PO DAILY [facility] [place] Last Admin: 07/27/18 09:00 Dose: 1,000 mg Celecoxib (Celebrex) 200 mg PO BID [facility] [place] Last Admin: 07/27/18 09:01 Dose: 200 mg Chlorthalidone (Chlorthalidone) 25 mg PO DAILY [facility] [place] Last Admin: 07/27/18 08:58 Dose: 25 mg Diphenhydramine HCl (Benadryl) 25 - 50 mg PO Q6H PRN PRN Reason: Itching Docusate Sodium (Colace) 100 mg PO BID PRN PRN Reason: Constipation Famotidine (Pepcid) 40 mg PO DAILY [facility] Last Admin: 07/27/18 09:00 Dose: 40 mg Hydromorphone HCl (Dilaudid) 0.5 - 1 mg IVPUSH Q3H PRN PRN Reason: Pain Last Admin: 07/27/18 12:24 Dose: 1 mg Insulin Aspart (Novolog) 0 unit SUBCUT TIDAC [facility]; Protocol Last Admin: 07/27/18 16:44 Dose: Not Given Admin: 07/27/18 12:26 Dose: Not Given Admin: 07/27/18 07:48 Dose: Not Given Admin: 07/26/18 17:40 Dose: Not Given Lisinopril (Prinivil) 40 mg PO DAILY [facility] Last Admin: 07/27/18 08:57 Dose: 40 mg Magnesium Hydroxide (Milk Of Magnesia) 30 ml PO DAILY [facility] Last Admin: 07/27/18 09:02 Dose: Not Given Ondansetron HCl (Zofran) 4 mg IVPUSH Q6H PRN PRN Reason: Nausea/Vomiting Last Admin: 07/27/18 16:08 Dose: 4 mg Admin: 07/27/18 08:15 Dose: 4 mg Oxycodone/Acetaminophen (Percocet 325-5 Mg) 1 - 2 tab PO Q4H PRN PRN Reason: Pain Last Admin: 07/27/18 08:55 Dose: 2 tab Premarin Vaginal (Cream) 1 each VAG Q2D@2100 [facility] Potassium Chloride (Klor-Con M20) 20 meq PO DAILY [facility] D Last Admin: 07/27/18 08:59 Dose: 20 meq Scopolamine (Transderm-Scop) 1.5 mg TRDERM ONARRIVE [facility] Last Admin: 07/26/18 10:14 Dose: 1.5 mg Sodium Chloride (Saline Flush) 10 ml FLUSH ASDIRECTED PRN PRN Reason: Keep Vein Open Sodium Chloride (Saline Flush) 2.5 ml FLUSH ASDIRECTED PRN PRN Reason: Keep Vein Open - Plan Plan (Free Text/Narrative):: 1330 Patient seen and examined. Agree with the above note. Her pain is fairly well controlled. She recently received IV pain medication. She was up walking with physical therapy earlier. Her hemoglobin remained stable. Patient is planning on going to the extended care facility upon discharge. Her insurances require 3 midnight stays. Will continue physical therapy over the next few days. isi
[2018-07-27] MEDS: Acetaminophen/oxyCODONE 325-5 MG Tab PO PRN ×2 (08:55→20:23)
[2018-07-27] MEDS: Lisinopril 10 MG Tab PO SCH (08:57)
[2018-07-27] MEDS: Chlorthalidone 25 MG Tab PO SCH (08:58)
[2018-07-27] MEDS: Aspirin 325 MG Tab.EC PO SCH ×2 (08:59→20:22)
[2018-07-27] MEDS: Potassium Chloride 20 MEQ Tab.ER PO SCH (08:59)
[2018-07-27] MEDS: Famotidine 20 MG Tab PO SCH (09:00)
[2018-07-27] MEDS ORDERED: Polyethylene Glycol 3350 Powder 17 GM Packet PO SCH (09:00)
[2018-07-27] MEDS: Calcium Carbonate 500 MG Tab.Chew PO SCH (09:00)
[2018-07-27] MEDS: Celecoxib 100 MG Cap PO SCH ×2 (09:01→20:22)
[2018-07-27] MEDS: Magnesium Hydroxide 400 MG/5 ML Susp 30 ML Cup PO SCH (09:02)
--- NOTE | 2018-07-27 09:21 | PCM.CONSN ---
- General Info Date of Service: 07/27/18 Admission Dx/Problem (Free Text): Admission Diagnosis/Problem Admission Diagnosis/Problem Replacement of total knee joint Subjective Update: Doing well this morning, just ambulated with PT. Knee pain noted. No Chest pain or SOB. No other concerns currently. Functional Status: Reports: Tolerating Diet, Ambulating - Review of Systems General: Reports: No Symptoms. Denies: Weakness, Fatigue Pulmonary: Reports: No Symptoms. Denies: Shortness of Breath Cardiovascular: Reports: No Symptoms. Denies: Chest Pain Gastrointestinal: Reports: No Symptoms, Flatus. Denies: Abdominal Pain, Nausea , Vomiting Genitourinary: Reports: No Symptoms, Other (ying just removed.) Musculoskeletal: Reports: Joint Pain (R knee pain) Skin: Reports: No Symptoms Neurological: Reports: No Symptoms Psychiatric: Reports: No Symptoms - Patient Data Vitals - Most Recent: Last Vital Signs Temp 97.0 F 07/27/18 04:00 Pulse 72 07/27/18 04:00 Resp 14 07/27/18 04:00 BP 129/61 07/27/18 08:57 Pulse Ox 93 L 07/27/18 04:00 Weight - Most Recent: 83.915 kg I&O - Last 24 Hours: Intake & Output 07/26/18 07/27/18 07/27/18 22:59 06:59 14:59 Intake Total 1000 2515 Output Total 350 1200 Balance 650 1315 Lab Results Last 24 Hours: Laboratory Results - last 24 hr 07/26/18 07/26/18 07/26/18 Range/Units 10:04 10:23 13:32 WBC 7.85 (4.0-11.0) K/uL RBC 4.79 (4.30-5.90) M/uL Hgb 13.2 (12.0-16.0) g/dL Hct 40.8 (36.0-46.0) % MCV 85.2 (80.0-98.0) fL MCH 27.6 (27.0-32.0) pg MCHC 32.4 (31.0-37.0) g/dL RDW Std Deviation 47.0 (28.0-62.0) fl RDW Coeff of [place] 15 (11.0-15.0) % Plt Count 212 (150-400) K/uL MPV 10.60 (7.40-12.00) fL Neut % (Auto) 64.9 (48.0-80.0) % Lymph % (Auto) 26.2 (16.0-40.0) % [place] % (Auto) 6.8 (0.0-15.0) % Eos % (Auto) 2.0 (0.0-7.0) % Baso % (Auto) 0.1 (0.0-1.5) % Neut # (Auto) 5.1 (1.4-5.7) K/uL Lymph # (Auto) 2.1 (0.6-2.4) K/uL [place] # (Auto) 0.5 (0.0-0.8) K/uL Eos # (Auto) 0.2 (0.0-0.7) K/uL Baso # (Auto) 0.0 (0.0-0.1) K/uL Nucleated RBC % 0.0 /100WBC Nucleated RBCs # 0 K/uL Sodium (136-145) mmol/L Potassium (3.5-5.1) mmol/L Chloride (98-107) mmol/L Carbon Dioxide (21.0-32.0) mmol/L BUN (7.0-18.0) mg/dL Creatinine (0.6-1.0) mg/dL Est Cr Clr Drug Dosing mL/min Estimated GFR (MDRD) ml/min Glucose (74-106) mg/dL POC Glucose 102 (60-110) mg/dL Calcium (8.5-10.1) mg/dL Magnesium (1.8-2.4) mg/dL Blood Type O POSITIVE Antibody Screen NEGATIVE 07/26/18 07/26/18 07/26/18 Range/Units 13:32 13:32 17:19 WBC (4.0-11.0) K/uL RBC (4.30-5.90) M/uL Hgb (12.0-16.0) g/dL Hct (36.0-46.0) % MCV (80.0-98.0) fL MCH (27.0-32.0) pg MCHC (31.0-37.0) g/dL RDW Std Deviation (28.0-62.0) fl RDW Coeff of Libertad (11.0-15.0) % Plt Count (150-400) K/uL MPV (7.40-12.00) fL Neut % (Auto) (48.0-80.0) % Lymph % (Auto) (16.0-40.0) % [place] % (Auto) (0.0-15.0) % Eos % (Auto) (0.0-7.0) % Baso % (Auto) (0.0-1.5) % Neut # (Auto) (1.4-5.7) K/uL Lymph # (Auto) (0.6-2.4) K/uL [place] # (Auto) (0.0-0.8) K/uL Eos # (Auto) (0.0-0.7) K/uL Baso # (Auto) (0.0-0.1) K/uL Nucleated RBC % /100WBC Nucleated RBCs # K/uL Sodium 142 (136-145) mmol/L Potassium 3.4 L (3.5-5.1) mmol/L Chloride 106 (98-107) mmol/L Carbon Dioxide 28.2 (21.0-32.0) mmol/L BUN 19 H (7.0-18.0) mg/dL Creatinine 1.0 (0.6-1.0) mg/dL Est Cr Clr Drug Dosing 49.80 mL/min Estimated GFR (MDRD) 55.5 ml/min Glucose 125 H (74-106) mg/dL POC Glucose 102 (60-110) mg/dL Calcium 8.0 L (8.5-10.1) mg/dL Magnesium 1.9 (1.8-2.4) mg/dL Blood Type Antibody Screen 07/26/18 07/27/18 07/27/18 Range/Units 20:45 04:45 04:45 WBC (4.0-11.0) K/uL RBC (4.30-5.90) M/uL Hgb 11.0 L (12.0-16.0) g/dL Hct 34.1 L (36.0-46.0) % MCV (80.0-98.0) fL MCH (27.0-32.0) pg MCHC (31.0-37.0) g/dL RDW Std Deviation (28.0-62.0) fl RDW Coeff of Libertad (11.0-15.0) % Plt Count (150-400) K/uL MPV (7.40-12.00) fL Neut % (Auto) (48.0-80.0) % Lymph % (Auto) (16.0-40.0) % [place] % (Auto) (0.0-15.0) % Eos % (Auto) (0.0-7.0) % Baso % (Auto) (0.0-1.5) % Neut # (Auto) (1.4-5.7) K/uL Lymph # (Auto) (0.6-2.4) K/uL [place] # (Auto) (0.0-0.8) K/uL Eos # (Auto) (0.0-0.7) K/uL Baso # (Auto) (0.0-0.1) K/uL Nucleated RBC % /100WBC Nucleated RBCs # K/uL Sodium 138 (136-145) mmol/L Potassium 3.7 (3.5-5.1) mmol/L Chloride 104 (98-107) mmol/L Carbon Dioxide 26.6 (21.0-32.0) mmol/L BUN 15 (7.0-18.0) mg/dL Creatinine 1.0 (0.6-1.0) mg/dL Est Cr Clr Drug Dosing 49.80 mL/min Estimated GFR (MDRD) 55.5 ml/min Glucose 115 H (74-106) mg/dL POC Glucose 111 H (60-110) mg/dL Calcium 7.5 L (8.5-10.1) mg/dL Magnesium 1.7 L (1.8-2.4) mg/dL Blood Type Antibody Screen 07/27/18 Range/Units 06:40 WBC (4.0-11.0) K/uL RBC (4.30-5.90) M/uL Hgb (12.0-16.0) g/dL Hct (36.0-46.0) % MCV (80.0-98.0) fL MCH (27.0-32.0) pg MCHC (31.0-37.0) g/dL RDW Std Deviation (28.0-62.0) fl RDW Coeff of Libertad (11.0-15.0) % Plt Count (150-400) K/uL MPV (7.40-12.00) fL Neut % (Auto) (48.0-80.0) % Lymph % (Auto) (16.0-40.0) % [place] % (Auto) (0.0-15.0) % Eos % (Auto) (0.0-7.0) % Baso % (Auto) (0.0-1.5) % Neut # (Auto) (1.4-5.7) K/uL Lymph # (Auto) (0.6-2.4) K/uL [place] # (Auto) (0.0-0.8) K/uL Eos # (Auto) (0.0-0.7) K/uL Baso # (Auto) (0.0-0.1) K/uL Nucleated RBC % /100WBC Nucleated RBCs # K/uL Sodium (136-145) mmol/L Potassium (3.5-5.1) mmol/L Chloride (98-107) mmol/L Carbon Dioxide (21.0-32.0) mmol/L BUN (7.0-18.0) mg/dL Creatinine (0.6-1.0) mg/dL Est Cr Clr Drug Dosing mL/min Estimated GFR (MDRD) ml/min Glucose (74-106) mg/dL POC Glucose 124 H (60-110) mg/dL Calcium (8.5-10.1) mg/dL Magnesium (1.8-2.4) mg/dL Blood Type Antibody Screen Med Orders - Current: Current Medications Al Hydroxide/Mg Hydroxide (Mag-Al Plus) 30 ml PO Q4H PRN PRN Reason: Indigestion Aspirin (Ecotrin) 325 mg PO BID COUNT [facility]CLUDES [facility] Last Admin: 07/27/18 08:59 Dose: 325 mg Bisacodyl (Dulcolax) 10 mg RECTAL DAILY PRN PRN Reason: Constipation Calcium Carbonate/Glycine (Tums) 1,000 mg PO DAILY [facility] Last Admin: 07/27/18 09:00 Dose: 1,000 mg Celecoxib (Celebrex) 200 mg PO BID COUNT [facility]CLUD[facility] Last Admin: 07/27/18 09:01 Dose: 200 mg Chlorthalidone (Chlorthalidone) 25 mg PO DAILY [facility] Last Admin: 07/27/18 08:58 Dose: 25 mg Diphenhydramine HCl (Benadryl) 25 - 50 mg PO Q6H PRN PRN Reason: Itching Docusate Sodium (Colace) 100 mg PO BID PRN PRN Reason: Constipation Famotidine (Pepcid) 40 mg PO DAILY [facility] Last Admin: 07/27/18 09:00 Dose: 40 mg Hydromorphone HCl (Dilaudid) 0.5 - 1 mg IVPUSH Q3H PRN PRN Reason: Pain Insulin Aspart (Novolog) 0 unit SUBCUT TIDAC [facility]; Protocol Last Admin: 07/27/18 07:48 Dose: Not Given Lisinopril (Prinivil) 40 mg PO DAILY [facility] Last Admin: 07/27/18 08:57 Dose: 40 mg Magnesium Hydroxide (Milk Of Magnesia) 30 ml PO DAILY [facility] Last Admin: 07/27/18 09:02 Dose: Not Given Ondansetron HCl (Zofran) 4 mg IVPUSH Q6H PRN PRN Reason: Nausea/Vomiting Last Admin: 07/27/18 08:15 Dose: 4 mg Oxycodone/Acetaminophen (Percocet 325-5 Mg) 1 - 2 tab PO Q4H PRN PRN Reason: Pain Last Admin: 07/27/18 08:55 Dose: 2 tab Premarin Vaginal (Cream) 1 each VAG Q2D@2100 [facility] Potassium Chloride (Klor-Con M20) 20 meq PO DAILY [facility] Last Admin: 07/27/18 08:59 Dose: 20 meq Scopolamine (Transderm-Scop) 1.5 mg TRDERM ONARRIVE [facility] Last Admin: 07/26/18 10:14 Dose: 1.5 mg Sodium Chloride (Saline Flush) 10 ml FLUSH ASDIRECTED PRN PRN Reason: Keep Vein Open Sodium Chloride (Saline Flush) 2.5 ml FLUSH ASDIRECTED PRN PRN Reason: Keep Vein Open Discontinued Medications Cefazolin Sodium (Ancef) Confirm Administered Dose 2 gm .ROUTE .STK-MED ONE Stop: 07/26/18 09:05 Ephedrine Sulfate (Ephedrine Sulfate) Confirm Administered Dose 50 mg .ROUTE .STK-MED ONE Stop: 07/26/18 11:14 Famotidine (Pepcid) 40 mg IVPUSH ONARRIVE COUNT [facility]CLUD[facility] Last Admin: 07/26/18 10:20 Dose: 40 mg Fentanyl (Sublimaze) Confirm Administered Dose 100 mcg .ROUTE .STK-MED ONE Stop: 07/26/18 09:08 Glycopyrrolate (Robinul) Confirm Administered Dose 0.2 mg .ROUTE .STK-MED ONE Stop: 07/26/18 11:00 Hydromorphone HCl (Dilaudid) 0.5 - 1 mg IVPUSH Q3H PRN PRN Reason: Pain Acetaminophen 1,000 mg/ Premix 100 mls @ 400 mls/hr IV ONARRIVE COUNT [facility]CLUDES THE [facility] Last Admin: 07/26/18 10:20 Dose: 400 mls/hr Cefazolin Sodium/Dextrose 2 gm (/ Premix) 50 mls @ 100 mls/hr IV ONCALL COUNT INCLUDES THE [facility] Ropivacaine 49.25 ml/Ketorolac Tromethamine 30 mg/Epinephrine HCl 0.5 mg/ Clonidine HCl 80 mcg/ Sodium Chloride 75 mls @ 50 mls/sec INJECT ASDIRECTED COUNT INCLUDES THE [facility] Lactated Ringer's (Ringers, Lactated) 1,000 mls @ 100 mls/hr IV ASDIRECTED COUNT INCLUDES THE [facility] Last Admin: 07/26/18 21:22 Dose: 100 mls/hr Tranexamic Acid 2,000 mg/ (Sodium Chloride) 120 mls @ 600 mls/hr IV ASDIRECTED ONE Stop: 07/26/18 08:11 Last Admin: 07/26/18 17:23 Dose: Not Given Ropivacaine 49.25 ml/Ketorolac Tromethamine 30 mg/Epinephrine HCl 0.5 mg/ Sodium Chloride 75 mls @ 37.5 mls/min INJECT ASDIRECTED COUNT INCLUDES THE [facility] Acetaminophen 1,000 mg/ Premix 100 mls @ 400 mls/hr IV Q6H COUNT INCLUDES THE [facility] Stop: 07/27/18 04:14 Last Admin: 07/27/18 04:09 Dose: 400 mls/hr Cefazolin Sodium/Dextrose 2 gm (/ Premix) 50 mls @ 100 mls/hr IV Q8H COUNT INCLUDES THE [facility] Stop: 07/27/18 03:29 Last Admin: 07/27/18 02:39 Dose: 100 mls/hr Magnesium Sulfate 2 gm/ Premix 50 mls @ 50 mls/hr IV ONETIME ONE Stop: 07/27/18 09:17 Last Admin: 07/27/18 08:46 Dose: 50 mls/hr Ketorolac Tromethamine (Toradol) 15 mg IVPUSH Q6H [facility] D Stop: 07/27/18 05:00 Last Admin: 07/27/18 00:51 Dose: 15 mg Midazolam HCl (Versed 1 Mg/Ml) Confirm Administered Dose 4 mg .ROUTE .STK-MED ONE Stop: 07/26/18 09:07 Midazolam HCl (Versed 1 Mg/Ml) Confirm Administered Dose 2 mg .ROUTE .STK-MED ONE Stop: 07/26/18 10:34 Oxycodone HCl (Oxycodone) 5 - 10 mg PO Q4H PRN PRN Reason: Pain Stop: 07/27/18 06:00 Last Admin: 07/27/18 02:40 Dose: 10 mg Propofol (Diprivan 20 Ml) Confirm Administered Dose 200 mg .ROUTE .STK-MED ONE Stop: 07/26/18 09:13 Propofol (Diprivan 20 Ml) Confirm Administered Dose 200 mg .ROUTE .STK-MED ONE Stop: 07/26/18 09:14 Tranexamic Acid (Cyklokapron) Confirm Administered Dose 2,000 mg .ROUTE .STK- MED ONE Stop: 07/26/18 08:06 - Exam General: Alert, Oriented, Cooperative Lungs: Clear to Auscultation, Normal Respiratory Effort Cardiovascular: Regular Rate, Regular Rhythm GI/Abdominal Exam: Normal Bowel Sounds, Soft, Non-Tender Extremities: Normal Inspection, Normal Range of Motion, Non-Tender, No Pedal Edema Neurological: No New Focal Deficit Psy/Mental Status: Alert, Normal Affect, Normal Mood Consult PN Assessment/Plan Procedures: Procedures BREAST TOMOSYNTHESIS BI (04/05/18) COMPLETE CBC W/AUTO DIFF WBC (04/23/17) COMPREHEN METABOLIC PANEL (04/01/17) DXA BONE DENSITY AXIAL (04/01/17) LIPID PANEL (04/01/17) METABOLIC PANEL TOTAL CA (04/23/17) MRI JNT OF LWR EXTRE W/O DYE (07/09/18) REPAIR BLADDER DEFECT (04/23/17) REPAIR RECTUM & VAGINA (04/23/17) ROUTINE VENIPUNCTURE (04/23/17) SCR MAMMO BI INCL CAD (04/05/18) TISSUE EXAM BY PATHOLOGIST (04/23/17) URINALYSIS AUTO W/SCOPE (04/01/17) X-RAY EXAM KNEE 4 OR MORE (02/02/18) (1) S/P total knee arthroplasty SNOMED Code(s): 1118695221419, 401083893, 7689716947686 Code(s): Z96.659 - PRESENCE OF UNSPECIFIED ARTIFICIAL KNEE JOINT Current Visit: Yes Qualifiers: Laterality: right Qualified Code(s): Z96.651 - Presence of right artificial knee joint (2) HTN (hypertension) SNOMED Code(s): 43794175 Code(s): I10 - ESSENTIAL (PRIMARY) HYPERTENSION Current Visit: Yes Qualifiers: Hypertension type: essential hypertension Qualified Code(s): I10 - Essential (primary) hypertension (3) DM type 2 (diabetes mellitus, type 2) SNOMED Code(s): 83719550 Code(s): E11.9 - TYPE 2 DIABETES MELLITUS WITHOUT COMPLICATIONS Priority: Medium Current Visit: Yes Qualifiers: Diabetes mellitus predatory animal exterminator insulin use: without predatory animal exterminator use Diabetes mellitus complication status: without complication Qualified Code(s): E11.9 - Type 2 diabetes mellitus without complications Problem List Initiated/Reviewed/Updated: Yes My Orders Last 24 Hours: My Active Orders 07/26/18 13:15 Blood Glucose Check, Bedside [RC] TIDAC 07/26/18 17:00 Insulin Aspart [NovoLOG] See Protocol SUBCUT TIDAC 07/27/18 09:00 Chlorthalidone 25 mg PO DAILY Lisinopril [Prinivil] 40 mg PO DAILY Potassium Chloride [Klor-Con M20] 20 meq PO DAILY 07/27/18 21:00 Patient's Own Medication [Ptom] 1 each VAG Q2D@2100 07/28/18 05:11 BASIC METABOLIC PANEL,BMP [CHEM] AM MG [MAGNESIUM] [CHEM] AM 07/29/18 05:11 BASIC METABOLIC PANEL,BMP [CHEM] AM MG [MAGNESIUM] [CHEM] AM Plan: This 68 yohan old female admitted with R TKA, Hospitalist consulted for medical management 1. S/P R TKA: Orders per Orthopedics 2. HTN: Stable, continue Chlorthalidone. 3. Hypokalemia: Stable, agree with Magnesium replacement. Continue Potassium supplement 4. DM Type 2:BS stable. Prediabetic, A1c 6.4. Hold Metformin, Novolog SSI, BS with meals. VTE prophylaxis: Would recommend when Orthopedics deems appropriate. Plan for SNF for short term rehabilitation.
--- NOTE | 2018-07-27 15:05 | PCM48HPAN ---
Post Anesthesia Note - EVALUATION WITHIN 48HRS OF ANESTHETIC Vital Signs in Normal Range: Yes Patient Participated in Evaluation: Yes Respiratory Function Stable: Yes Airway Patent: Yes Cardiovascular Function Stable: Yes Hydration Status Stable: Yes Pain Control Satisfactory: Yes Nausea and Vomiting Control Satisfactory: Yes Mental Status Recovered: Yes Resp Rate: 18 Blood Pressure: 129/61 - COMMENTS/OBSERVATIONS Free Text/Narrative:: Patient got dilauidid this morning about 10:00 and is still feeling dizzy and sleepy but pain is better.
[2018-07-27] MEDS: Docusate Sodium 100 MG Cap PO PRN (20:22)
[2018-07-27] MEDS ORDERED: PREMARIN VAGINAL CREAM VAG SCH (21:00)
[2018-07-28] MEDS: Acetaminophen/oxyCODONE 325-5 MG Tab PO PRN ×3 (00:40→20:04)
[2018-07-28 06:02] LABS: CHLORIDE,CL 100 mmol/L (98-107); SODIUM,NA 135 mmol/L (136-145)
[2018-07-28] MEDS: Insulin Aspart 100 Units/ML 3 ML Pen SUBCUT SCH ×3 (06:29→17:51)
--- NOTE | 2018-07-28 07:29 | PCM.SURGPN ---
<Demetrius John Jr - Last Filed: 07/28/18 07:34> - General Info Date of Service: 07/28/18 Date of Surgery/Procedure: 07/26/18 POD#: 2 Post-Op Diagnosis: Right Total Knee Replacement. - Review of Systems General: Denies: Fever Pulmonary: Denies: Shortness of Breath Cardiovascular: Denies: Chest Pain Gastrointestinal: Denies: Abdominal Pain Neurological: Denies: Numbness Systems Review Comment:: Pain has been fairly well controlled. Was late getting a dose of Percocet early this am and was uncomfortable. Has been ambulating in her room and is working with PT to increase ROM. Denies fever, chills, nausea, emesis, SOB, or chest pain. No BM yet, but is on several stool softeners/laxitive. Denies any abdominal pain. Tolerating her diet. - Patient Data Vitals - Most Recent: Last Vital Signs Temp 97.5 F 07/28/18 04:34 Pulse 76 07/28/18 04:34 Resp 17 07/28/18 04:34 BP 122/65 07/28/18 04:34 Pulse Ox 92 L 07/28/18 04:34 Weight - Most Recent: 83.915 kg I&O - Last 24 Hours: Intake & Output 07/27/18 07/28/18 07/28/18 22:59 06:59 14:59 Intake Total 620 700 Output Total 200 1300 Balance 420 -600 Lab Results Last 24 Hrs: Laboratory Results - last 24 hr 07/27/18 07/27/18 07/28/18 Range/Units 12:26 16:29 05:25 Hgb 10.9 L (12.0-16.0) g/dL Hct 33.8 L (36.0-46.0) % Sodium (136-145) mmol/L Potassium (3.5-5.1) mmol/L Chloride (98-107) mmol/L Carbon Dioxide (21.0-32.0) mmol/L BUN (7.0-18.0) mg/dL Creatinine (0.6-1.0) mg/dL Est Cr Clr Drug Dosing mL/min Estimated GFR (MDRD) ml/min Glucose (74-106) mg/dL POC Glucose 134 H 140 H (60-110) mg/dL Calcium (8.5-10.1) mg/dL Magnesium (1.8-2.4) mg/dL 07/28/18 07/28/18 Range/Units 05:25 05:45 Hgb (12.0-16.0) g/dL Hct (36.0-46.0) % Sodium 135 L (136-145) mmol/L Potassium 3.7 (3.5-5.1) mmol/L Chloride 100 (98-107) mmol/L Carbon Dioxide 27.9 (21.0-32.0) mmol/L BUN 12 (7.0-18.0) mg/dL Creatinine 0.9 (0.6-1.0) mg/dL Est Cr Clr Drug Dosing 55.33 mL/min Estimated GFR (MDRD) > 60.0 ml/min Glucose 135 H (74-106) mg/dL POC Glucose 128 H (60-110) mg/dL Calcium 8.1 L (8.5-10.1) mg/dL Magnesium 2.0 (1.8-2.4) mg/dL Med Orders - Current: Current Medications Al Hydroxide/Mg Hydroxide (Mag-Al Plus) 30 ml PO Q4H PRN PRN Reason: Indigestion Aspirin (Ecotrin) 325 mg PO BID [facility] Last Admin: 07/27/18 20:22 Dose: 325 mg Bisacodyl (Dulcolax) 10 mg RECTAL DAILY PRN PRN Reason: Constipation Calcium Carbonate/Glycine (Tums) 1,000 mg PO DAILY [facility] Last Admin: 07/27/18 09:00 Dose: 1,000 mg Celecoxib (Celebrex) 200 mg PO BID [facility] Last Admin: 07/27/18 20:22 Dose: 200 mg Chlorthalidone (Chlorthalidone) 25 mg PO DAILY [facility] Last Admin: 07/27/18 08:58 Dose: 25 mg Diphenhydramine HCl (Benadryl) 25 - 50 mg PO Q6H PRN PRN Reason: Itching Docusate Sodium (Colace) 100 mg PO BID PRN PRN Reason: Constipation Last Admin: 07/27/18 20:22 Dose: 100 mg Famotidine (Pepcid) 40 mg PO DAILY [facility] Last Admin: 07/27/18 09:00 Dose: 40 mg Hydromorphone HCl (Dilaudid) 0.5 - 1 mg IVPUSH Q3H PRN PRN Reason: Pain Last Admin: 07/27/18 12:24 Dose: 1 mg Insulin Aspart (Novolog) 0 unit SUBCUT TIDAC [facility]; Protocol Last Admin: 07/28/18 06:29 Dose: Not Given Lisinopril (Prinivil) 40 mg PO DAILY [facility] Last Admin: 07/27/18 08:57 Dose: 40 mg Magnesium Hydroxide (Milk Of Magnesia) 30 ml PO DAILY [facility] Last Admin: 07/27/18 09:02 Dose: Not Given Ondansetron HCl (Zofran) 4 mg IVPUSH Q6H PRN PRN Reason: Nausea/Vomiting Last Admin: 07/27/18 16:08 Dose: 4 mg Oxycodone/Acetaminophen (Percocet 325-5 Mg) 1 - 2 tab PO Q4H PRN PRN Reason: Pain Last Admin: 07/28/18 06:29 Dose: 1 tab Premarin Vaginal (Cream) 1 each VAG Q2D@2100 [facility] Last Admin: 07/27/18 20:26 Dose: 1 each Potassium Chloride (Klor-Con M20) 20 meq PO DAILY [facility] Last Admin: 07/27/18 08:59 Dose: 20 meq Scopolamine (Transderm-Scop) 1.5 mg TRDERM ONARRIVE [facility] Last Admin: 07/26/18 10:14 Dose: 1.5 mg Sodium Chloride (Saline Flush) 10 ml FLUSH ASDIRECTED PRN PRN Reason: Keep Vein Open Sodium Chloride (Saline Flush) 2.5 ml FLUSH ASDIRECTED PRN PRN Reason: Keep Vein Open Discontinued Medications Cefazolin Sodium (Ancef) Confirm Administered Dose 2 gm .ROUTE .STK-MED ONE Stop: 07/26/18 09:05 Ephedrine Sulfate (Ephedrine Sulfate) Confirm Administered Dose 50 mg .ROUTE .STK-MED ONE Stop: 07/26/18 11:14 Famotidine (Pepcid) 40 mg IVPUSH ONARRIVE [facility] Last Admin: 07/26/18 10:20 Dose: 40 mg Fentanyl (Sublimaze) Confirm Administered Dose 100 mcg .ROUTE .STK-MED ONE Stop: 07/26/18 09:08 Glycopyrrolate (Robinul) Confirm Administered Dose 0.2 mg .ROUTE .STK-MED ONE Stop: 07/26/18 11:00 Hydromorphone HCl (Dilaudid) 0.5 - 1 mg IVPUSH Q3H PRN PRN Reason: Pain Acetaminophen 1,000 mg/ Premix 100 mls @ 400 mls/hr IV ONARRIVE [facility] Last Admin: 07/26/18 10:20 Dose: 400 mls/hr Cefazolin Sodium/Dextrose 2 gm (/ Premix) 50 mls @ 100 mls/hr IV ONCALL [facility] Ropivacaine 49.25 ml/Ketorolac Tromethamine 30 mg/Epinephrine HCl 0.5 mg/ Clonidine HCl 80 mcg/ Sodium Chloride 75 mls @ 50 mls/sec INJECT ASDIRECTED [facility] Lactated Ringer's (Ringers, Lactated) 1,000 mls @ 100 mls/hr IV ASDIRECTED [facility] Last Admin: 07/26/18 21:22 Dose: 100 mls/hr Tranexamic Acid 2,000 mg/ (Sodium Chloride) 120 mls @ 600 mls/hr IV ASDIRECTED [facility] Stop: 07/26/18 08:11 Last Admin: 07/26/18 17:23 Dose: Not Given Ropivacaine 49.25 ml/Ketorolac Tromethamine 30 mg/Epinephrine HCl 0.5 mg/ Sodium Chloride 75 mls @ 37.5 mls/min INJECT ASDIRECTED [facility] Acetaminophen 1,000 mg/ Premix 100 mls @ 400 mls/hr IV Q6H [facility] Stop: 07/27/18 04:14 Last Admin: 07/27/18 04:09 Dose: 400 mls/hr Cefazolin Sodium/Dextrose 2 gm (/ Premix) 50 mls @ 100 mls/hr IV Q8H [facility] Stop: 07/27/18 03:29 Last Admin: 07/27/18 02:39 Dose: 100 mls/hr Magnesium Sulfate 2 gm/ Premix 50 mls @ 50 mls/hr IV ONETIME ONE Stop: 07/27/18 09:17 Last Admin: 07/27/18 08:46 Dose: 50 mls/hr Ketorolac Tromethamine (Toradol) 15 mg IVPUSH Q6H [facility] Stop: 07/27/18 05:00 Last Admin: 07/27/18 00:51 Dose: 15 mg Midazolam HCl (Versed 1 Mg/Ml) Confirm Administered Dose 4 mg .ROUTE .STK-MED ONE Stop: 07/26/18 09:07 Midazolam HCl (Versed 1 Mg/Ml) Confirm Administered Dose 2 mg .ROUTE .STK-MED ONE Stop: 07/26/18 10:34 Oxycodone HCl (Oxycodone) 5 - 10 mg PO Q4H PRN PRN Reason: Pain Stop: 07/27/18 06:00 Last Admin: 07/27/18 02:40 Dose: 10 mg Propofol (Diprivan 20 Ml) Confirm Administered Dose 200 mg .ROUTE .STK-MED ONE Stop: 07/26/18 09:13 Propofol (Diprivan 20 Ml) Confirm Administered Dose 200 mg .ROUTE .STK-MED ONE Stop: 07/26/18 09:14 Tranexamic Acid (Cyklokapron) Confirm Administered Dose 2,000 mg .ROUTE .STK- MED ONE Stop: 07/26/18 08:06 - Exam Physical Findings Comment:: She appears comfortable this am, is not in any distress. Breathing is non labored Abdomen is soft and non tender She has good sensation to her right lower extremity, is equal to the left. She can flex and extend her knee better but remains limited due to pain. With passive movement of her leg the knee moves smoothly. I do not appreciate any varus or valgus laxity. She has no pitting edema to either of her lower extremities. - Problem List & Annotations (1) DM type 2 (diabetes mellitus, type 2) SNOMED Code(s): 12201749 Code(s): E11.9 - TYPE 2 DIABETES MELLITUS WITHOUT COMPLICATIONS Status: Acute Priority: Medium Current Visit: Yes Qualifiers: Diabetes mellitus terminal worker insulin use: without care home use Diabetes mellitus complication status: without complication Qualified Code(s): E11.9 - Type 2 diabetes mellitus without complications (2) HTN (hypertension) SNOMED Code(s): 77420148 Code(s): I10 - ESSENTIAL (PRIMARY) HYPERTENSION Status: Acute Current Visit: Yes Qualifiers: Hypertension type: essential hypertension Qualified Code(s): I10 - Essential (primary) hypertension (3) S/P total knee arthroplasty SNOMED Code(s): 1242133725683, 569947229, 6512140208231 Code(s): Z96.659 - PRESENCE OF UNSPECIFIED ARTIFICIAL KNEE JOINT Status: Acute Current Visit: Yes Qualifiers: Laterality: right Qualified Code(s): Z96.651 - Presence of right artificial knee joint - Problem List Review Problem List Initiated/Reviewed/Updated: Yes - My Orders Last 24 Hours: Active Orders 24 hr Category Date Time Status BASIC METABOLIC PANEL,BMP [CHEM] AM Lab 07/29/18 05:11 Ordered MG [MAGNESIUM] [CHEM] AM Lab 07/29/18 05:11 Ordered Aspirin [Ecotrin] Med 07/27/18 09:00 Active 325 mg PO BID Calcium Carbonate [Tums] Med 07/27/18 09:00 Active 1,000 mg PO DAILY Celecoxib [CeleBREX] Med 07/27/18 09:00 Active 200 mg PO BID Chlorthalidone Med 07/27/18 09:00 Active 25 mg PO DAILY Famotidine [Pepcid] Med 07/27/18 09:00 Active 40 mg PO DAILY Lisinopril [Prinivil] Med 07/27/18 09:00 Active 40 mg PO DAILY Magnesium Hydroxide [Milk of Magnesia] Med 07/27/18 09:00 Active 30 ml PO DAILY Patient's Own Medication [Ptom] Med 07/27/18 21:00 Active 1 each VAG Q2D@2100 Potassium Chloride [Klor-Con M20] Med 07/27/18 09:00 Active 20 meq PO DAILY Medication Orders Al Hydroxide/Mg Hydroxide (Mag-Al Plus) 30 ml PO Q4H PRN PRN Reason: Indigestion Aspirin (Ecotrin) 325 mg PO BID [facility] Last Admin: 07/27/18 20:22 Dose: 325 mg Admin: 07/27/18 08:59 Dose: 325 mg Bisacodyl (Dulcolax) 10 mg RECTAL DAILY PRN PRN Reason: Constipation Calcium Carbonate/Glycine (Tums) 1,000 mg PO DAILY [facility] Last Admin: 07/27/18 09:00 Dose: 1,000 mg Celecoxib (Celebrex) 200 mg PO BID [facility] Last Admin: 07/27/18 20:22 Dose: 200 mg Admin: 07/27/18 09:01 Dose: 200 mg Chlorthalidone (Chlorthalidone) 25 mg PO DAILY [facility] Last Admin: 07/27/18 08:58 Dose: 25 mg Diphenhydramine HCl (Benadryl) 25 - 50 mg PO Q6H PRN PRN Reason: Itching Docusate Sodium (Colace) 100 mg PO BID PRN PRN Reason: Constipation Last Admin: 07/27/18 20:22 Dose: 100 mg Famotidine (Pepcid) 40 mg PO DAILY [facility] Last Admin: 07/27/18 09:00 Dose: 40 mg Hydromorphone HCl (Dilaudid) 0.5 - 1 mg IVPUSH Q3H PRN PRN Reason: Pain Last Admin: 07/27/18 12:24 Dose: 1 mg Insulin Aspart (Novolog) 0 unit SUBCUT TIDAC [facility]; Protocol Last Admin: 07/28/18 06:29 Dose: Not Given Admin: 07/27/18 16:44 Dose: Not Given Admin: 07/27/18 12:26 Dose: Not Given Admin: 07/27/18 07:48 Dose: Not Given Admin: 07/26/18 17:40 Dose: Not Given Lisinopril (Prinivil) 40 mg PO DAILY [facility] Last Admin: 07/27/18 08:57 Dose: 40 mg Magnesium Hydroxide (Milk Of Magnesia) 30 ml PO DAILY [facility] Last Admin: 07/27/18 09:02 Dose: Not Given Ondansetron HCl (Zofran) 4 mg IVPUSH Q6H PRN PRN Reason: Nausea/Vomiting Last Admin: 07/27/18 16:08 Dose: 4 mg Admin: 07/27/18 08:15 Dose: 4 mg Oxycodone/Acetaminophen (Percocet 325-5 Mg) 1 - 2 tab PO Q4H PRN PRN Reason: Pain Last Admin: 07/28/18 06:29 Dose: 1 tab Admin: 07/28/18 00:40 Dose: 1 tab Admin: 07/27/18 20:23 Dose: 1 tab Admin: 07/27/18 08:55 Dose: 2 tab Premarin Vaginal (Cream) 1 each VAG Q2D@2100 [facility] Last Admin: 07/27/18 20:26 Dose: 1 each Potassium Chloride (Klor-Con M20) 20 meq PO DAILY [facility] Last Admin: 07/27/18 08:59 Dose: 20 meq Scopolamine (Transderm-Scop) 1.5 mg TRDERM ONARRIVE [facility] Last Admin: 07/26/18 10:14 Dose: 1.5 mg Sodium Chloride (Saline Flush) 10 ml FLUSH ASDIRECTED PRN PRN Reason: Keep Vein Open Sodium Chloride (Saline Flush) 2.5 ml FLUSH ASDIRECTED PRN PRN Reason: Keep Vein Open - Assessment Assessment (Free Text/Narrative):: POD 2 s/p right total knee. She is progressing appropriately. I have no concerns. - Plan Plan (Free Text/Narrative):: - Continue diabetic diet and insulin. Her BS are controlled. - Continue PT. Work to increase activity and ROM. - Continue SCD, compression hose, and ice therapy. - Percocet for pain, she does not like the way dilaudid makes her feel. Seems well controlled with only PO medications. - Aspirin 325 BID for DVT prophylaxis. - Continue bowel regimen with milk of magnesia and Dulcolax. - Saline lock - Will discuss further plans with Dr. French. <Lana French R - Last Filed: 07/28/18 15:11> - Patient Data Vitals - Most Recent: Last Vital Signs Temp 98.8 F 07/28/18 12:00 Pulse 76 07/28/18 12:00 Resp 18 07/28/18 12:00 BP 119/58 L 07/28/18 12:00 Pulse Ox 92 L 07/28/18 12:00 I&O - Last 24 Hours: Intake & Output 07/28/18 07/28/18 07/28/18 06:59 14:59 22:59 Intake Total 700 Output Total 1300 Balance -600 Lab Results Last 24 Hrs: Laboratory Results - last 24 hr 07/27/18 07/27/18 07/28/18 Range/Units 12:26 16:29 05:25 Hgb 10.9 L (12.0-16.0) g/dL Hct 33.8 L (36.0-46.0) % Sodium (136-145) mmol/L Potassium (3.5-5.1) mmol/L Chloride (98-107) mmol/L Carbon Dioxide (21.0-32.0) mmol/L BUN (7.0-18.0) mg/dL Creatinine (0.6-1.0) mg/dL Est Cr Clr Drug Dosing mL/min Estimated GFR (MDRD) ml/min Glucose (74-106) mg/dL POC Glucose 134 H 140 H (60-110) mg/dL Calcium (8.5-10.1) mg/dL Magnesium (1.8-2.4) mg/dL 07/28/18 07/28/18 07/28/18 Range/Units 05:25 05:45 11:30 Hgb (12.0-16.0) g/dL Hct (36.0-46.0) % Sodium 135 L (136-145) mmol/L Potassium 3.7 (3.5-5.1) mmol/L Chloride 100 (98-107) mmol/L Carbon Dioxide 27.9 (21.0-32.0) mmol/L BUN 12 (7.0-18.0) mg/dL Creatinine 0.9 (0.6-1.0) mg/dL Est Cr Clr Drug Dosing 55.33 mL/min Estimated GFR (MDRD) > 60.0 ml/min Glucose 135 H (74-106) mg/dL POC Glucose 128 H 146 H (60-110) mg/dL Calcium 8.1 L (8.5-10.1) mg/dL Magnesium 2.0 (1.8-2.4) mg/dL Med Orders - Current: Current Medications Al Hydroxide/Mg Hydroxide (Mag-Al Plus) 30 ml PO Q4H PRN PRN Reason: Indigestion Aspirin (Ecotrin) 325 mg PO BID [facility] Last Admin: 07/28/18 08:56 Dose: 325 mg Bisacodyl (Dulcolax) 10 mg RECTAL DAILY PRN PRN Reason: Constipation Calcium Carbonate/Glycine (Tums) 1,000 mg PO DAILY [facility] Last Admin: 07/28/18 08:56 Dose: 1,000 mg Celecoxib (Celebrex) 200 mg PO BID [facility] Last Admin: 07/28/18 08:55 Dose: 200 mg Chlorthalidone (Chlorthalidone) 25 mg PO DAILY [facility] Last Admin: 07/28/18 08:55 Dose: 25 mg Diphenhydramine HCl (Benadryl) 25 - 50 mg PO Q6H PRN PRN Reason: Itching Docusate Sodium (Colace) 100 mg PO BID PRN PRN Reason: Constipation Last Admin: 07/27/18 20:22 Dose: 100 mg Famotidine (Pepcid) 40 mg PO DAILY [facility] Last Admin: 07/28/18 08:53 Dose: 40 mg Hydromorphone HCl (Dilaudid) 0.5 - 1 mg IVPUSH Q3H PRN PRN Reason: Pain Last Admin: 07/27/18 12:24 Dose: 1 mg Insulin Aspart (Novolog) 0 unit SUBCUT TIDAC [facility]; Protocol Last Admin: 07/28/18 12:00 Dose: Not Given Lisinopril (Prinivil) 40 mg PO DAILY [facility] Last Admin: 07/28/18 08:56 Dose: 40 mg Magnesium Hydroxide (Milk Of Magnesia) 30 ml PO DAILY [facility] Last Admin: 07/28/18 08:57 Dose: 30 ml Ondansetron HCl (Zofran) 4 mg IVPUSH Q6H PRN PRN Reason: Nausea/Vomiting Last Admin: 07/27/18 16:08 Dose: 4 mg Oxycodone/Acetaminophen (Percocet 325-5 Mg) 1 - 2 tab PO Q4H PRN PRN Reason: Pain Last Admin: 07/28/18 06:29 Dose: 1 tab Premarin Vaginal (Cream) 1 each VAG Q2D@2100 [facility] Last Admin: 07/27/18 20:26 Dose: 1 each Excedrin 1 each PO TID PRN PRN Reason: Headache Potassium Chloride (Klor-Con M20) 20 meq PO DAILY [facility] Last Admin: 07/28/18 08:54 Dose: 20 meq Scopolamine (Transderm-Scop) 1.5 mg TRDERM ONARRIVE [facility] Last Admin: 07/26/18 10:14 Dose: 1.5 mg Sodium Chloride (Saline Flush) 10 ml FLUSH ASDIRECTED PRN PRN Reason: Keep Vein Open Sodium Chloride (Saline Flush) 2.5 ml FLUSH ASDIRECTED PRN PRN Reason: Keep Vein Open Discontinued Medications Cefazolin Sodium (Ancef) Confirm Administered Dose 2 gm .ROUTE .STK-MED ONE Stop: 07/26/18 09:05 Ephedrine Sulfate (Ephedrine Sulfate) Confirm Administered Dose 50 mg .ROUTE .STK-MED ONE Stop: 07/26/18 11:14 Famotidine (Pepcid) 40 mg IVPUSH ONARRIVE [facility] Last Admin: 07/26/18 10:20 Dose: 40 mg Fentanyl (Sublimaze) Confirm Administered Dose 100 mcg .ROUTE .STK-MED ONE Stop: 07/26/18 09:08 Glycopyrrolate (Robinul) Confirm Administered Dose 0.2 mg .ROUTE .STK-MED ONE Stop: 07/26/18 11:00 Hydromorphone HCl (Dilaudid) 0.5 - 1 mg IVPUSH Q3H PRN PRN Reason: Pain Acetaminophen 1,000 mg/ Premix 100 mls @ 400 mls/hr IV ONARRIVE [facility] Last Admin: 07/26/18 10:20 Dose: 400 mls/hr Cefazolin Sodium/Dextrose 2 gm (/ Premix) 50 mls @ 100 mls/hr IV ONCALL [facility] Ropivacaine 49.25 ml/Ketorolac Tromethamine 30 mg/Epinephrine HCl 0.5 mg/ Clonidine HCl 80 mcg/ Sodium Chloride 75 mls @ 50 mls/sec INJECT ASDIRECTED [facility] Lactated Ringer's (Ringers, Lactated) 1,000 mls @ 100 mls/hr IV ASDIRECTED [facility] Last Admin: 07/26/18 21:22 Dose: 100 mls/hr Tranexamic Acid 2,000 mg/ (Sodium Chloride) 120 mls @ 600 mls/hr IV ASDIRECTED ONE Stop: 07/26/18 08:11 Last Admin: 07/26/18 17:23 Dose: Not Given Ropivacaine 49.25 ml/Ketorolac Tromethamine 30 mg/Epinephrine HCl 0.5 mg/ Sodium Chloride 75 mls @ 37.5 mls/min INJECT ASDIRECTED [facility] Acetaminophen 1,000 mg/ Premix 100 mls @ 400 mls/hr IV Q6H [facility] Stop: 07/27/18 04:14 Last Admin: 07/27/18 04:09 Dose: 400 mls/hr Cefazolin Sodium/Dextrose 2 gm (/ Premix) 50 mls @ 100 mls/hr IV Q8H [facility] Stop: 07/27/18 03:29 Last Admin: 07/27/18 02:39 Dose: 100 mls/hr Magnesium Sulfate 2 gm/ Premix 50 mls @ 50 mls/hr IV ONETIME ONE Stop: 07/27/18 09:17 Last Admin: 07/27/18 08:46 Dose: 50 mls/hr Ketorolac Tromethamine (Toradol) 15 mg IVPUSH Q6H [facility] Stop: 07/27/18 05:00 Last Admin: 07/27/18 00:51 Dose: 15 mg Midazolam HCl (Versed 1 Mg/Ml) Confirm Administered Dose 4 mg .ROUTE .STK-MED ONE Stop: 07/26/18 09:07 Midazolam HCl (Versed 1 Mg/Ml) Confirm Administered Dose 2 mg .ROUTE .STK-MED ONE Stop: 07/26/18 10:34 Oxycodone HCl (Oxycodone) 5 - 10 mg PO Q4H PRN PRN Reason: Pain Stop: 07/27/18 06:00 Last Admin: 07/27/18 02:40 Dose: 10 mg Propofol (Diprivan 20 Ml) Confirm Administered Dose 200 mg .ROUTE .STK-MED ONE Stop: 07/26/18 09:13 Propofol (Diprivan 20 Ml) Confirm Administered Dose 200 mg .ROUTE .STK-MED ONE Stop: 07/26/18 09:14 Tranexamic Acid (Cyklokapron) Confirm Administered Dose 2,000 mg .ROUTE .STK- MED ONE Stop: 07/26/18 08:06 - My Orders Last 24 Hours: Active Orders 24 hr Category Date Time Status BASIC METABOLIC PANEL,BMP [CHEM] AM Lab 07/29/18 05:11 Ordered MG [MAGNESIUM] [CHEM] AM Lab 07/29/18 05:11 Ordered Patient's Own Medication [Ptom] Med 07/28/18 10:06 Active 1 each PO TID PRN Patient's Own Medication [Ptom] Med 07/27/18 21:00 Active 1 each VAG Q2D@2100 Medication Orders Al Hydroxide/Mg Hydroxide (Mag-Al Plus) 30 ml PO Q4H PRN PRN Reason: Indigestion Aspirin (Ecotrin) 325 mg PO BID [facility] Last Admin: 07/28/18 08:56 Dose: 325 mg Admin: 07/27/18 20:22 Dose: 325 mg Admin: 07/27/18 08:59 Dose: 325 mg Bisacodyl (Dulcolax) 10 mg RECTAL DAILY PRN PRN Reason: Constipation Calcium Carbonate/Glycine (Tums) 1,000 mg PO DAILY [facility] Last Admin: 07/28/18 08:56 Dose: 1,000 mg Admin: 07/27/18 09:00 Dose: 1,000 mg Celecoxib (Celebrex) 200 mg PO BID [facility] Last Admin: 07/28/18 08:55 Dose: 200 mg Admin: 07/27/18 20:22 Dose: 200 mg Admin: 07/27/18 09:01 Dose: 200 mg Chlorthalidone (Chlorthalidone) 25 mg PO DAILY [facility] Last Admin: 07/28/18 08:55 Dose: 25 mg Admin: 07/27/18 08:58 Dose: 25 mg Diphenhydramine HCl (Benadryl) 25 - 50 mg PO Q6H PRN PRN Reason: Itching Docusate Sodium (Colace) 100 mg PO BID PRN PRN Reason: Constipation Last Admin: 07/27/18 20:22 Dose: 100 mg Famotidine (Pepcid) 40 mg PO DAILY [facility] Last Admin: 07/28/18 08:53 Dose: 40 mg Admin: 07/27/18 09:00 Dose: 40 mg Hydromorphone HCl (Dilaudid) 0.5 - 1 mg IVPUSH Q3H PRN PRN Reason: Pain Last Admin: 07/27/18 12:24 Dose: 1 mg Insulin Aspart (Novolog) 0 unit SUBCUT TIDAC [facility]; Protocol Last Admin: 07/28/18 12:00 Dose: Not Given Admin: 07/28/18 06:29 Dose: Not Given Admin: 07/27/18 16:44 Dose: Not Given Admin: 07/27/18 12:26 Dose: Not Given Admin: 07/27/18 07:48 Dose: Not Given Admin: 07/26/18 17:40 Dose: Not Given Lisinopril (Prinivil) 40 mg PO DAILY [facility] Last Admin: 07/28/18 08:56 Dose: 40 mg Admin: 07/27/18 08:57 Dose: 40 mg Magnesium Hydroxide (Milk Of Magnesia) 30 ml PO DAILY [facility] Last Admin: 07/28/18 08:57 Dose: 30 ml Admin: 07/27/18 09:02 Dose: Not Given Ondansetron HCl (Zofran) 4 mg IVPUSH Q6H PRN PRN Reason: Nausea/Vomiting Last Admin: 07/27/18 16:08 Dose: 4 mg Admin: 07/27/18 08:15 Dose: 4 mg Oxycodone/Acetaminophen (Percocet 325-5 Mg) 1 - 2 tab PO Q4H PRN PRN Reason: Pain Last Admin: 07/28/18 06:29 Dose: 1 tab Admin: 07/28/18 00:40 Dose: 1 tab Admin: 07/27/18 20:23 Dose: 1 tab Admin: 07/27/18 08:55 Dose: 2 tab Premarin Vaginal (Cream) 1 each VAG Q2D@2100 [facility] Last Admin: 07/27/18 20:26 Dose: 1 each Excedrin 1 each PO TID PRN PRN Reason: Headache Potassium Chloride (Klor-Con M20) 20 meq PO DAILY [facility] Last Admin: 07/28/18 08:54 Dose: 20 meq Admin: 07/27/18 08:59 Dose: 20 meq Scopolamine (Transderm-Scop) 1.5 mg TRDERM ONARRIVE [facility] Last Admin: 07/26/18 10:14 Dose: 1.5 mg Sodium Chloride (Saline Flush) 10 ml FLUSH ASDIRECTED PRN PRN Reason: Keep Vein Open Sodium Chloride (Saline Flush) 2.5 ml FLUSH ASDIRECTED PRN PRN Reason: Keep Vein Open - Plan Plan (Free Text/Narrative):: 1500 Patient seen and examined. Agree with above note. Progressing with PT. Pain controlled with po meds. Hgb stable. 1. ASA/SCD for DVT prophylaxis 2. continue current pain management 3. d/c to [facility] tomorrow rrk
--- NOTE | 2018-07-28 08:45 | PCM.CONSN ---
- General Info Date of Service: 07/28/18 Admission Dx/Problem (Free Text): Admission Diagnosis/Problem Admission Diagnosis/Problem Replacement of total knee joint Subjective Update: Sitting in chair after being up with PT. No chest pain no other concerns. Knee is painful after walk and would like to go back to bed Functional Status: Reports: Pain Controlled - Review of Systems General: Reports: Fatigue. Denies: Fever, Weakness HEENT: Reports: No Symptoms. Denies: Headaches, Sore Throat, Visual Changes Pulmonary: Reports: No Symptoms. Denies: Shortness of Breath Cardiovascular: Reports: No Symptoms. Denies: Chest Pain Gastrointestinal: Reports: No Symptoms. Denies: Abdominal Pain, Nausea, Vomiting Genitourinary: Reports: No Symptoms. Denies: Dysuria, Frequency, Burning Musculoskeletal: Reports: Joint Pain (R knee pain) Skin: Reports: No Symptoms Neurological: Reports: No Symptoms Psychiatric: Reports: No Symptoms - Patient Data Vitals - Most Recent: Last Vital Signs Temp 99.3 F 07/28/18 07:31 Pulse 74 07/28/18 07:31 Resp 17 07/28/18 07:31 BP 124/60 07/28/18 07:31 Pulse Ox 97 07/28/18 07:31 Weight - Most Recent: 83.915 kg I&O - Last 24 Hours: Intake & Output 07/27/18 07/28/18 07/28/18 22:59 06:59 14:59 Intake Total 620 700 Output Total 200 1300 Balance 420 -600 Lab Results Last 24 Hours: Laboratory Results - last 24 hr 07/27/18 07/27/18 07/28/18 Range/Units 12:26 16:29 05:25 Hgb 10.9 L (12.0-16.0) g/dL Hct 33.8 L (36.0-46.0) % Sodium (136-145) mmol/L Potassium (3.5-5.1) mmol/L Chloride (98-107) mmol/L Carbon Dioxide (21.0-32.0) mmol/L BUN (7.0-18.0) mg/dL Creatinine (0.6-1.0) mg/dL Est Cr Clr Drug Dosing mL/min Estimated GFR (MDRD) ml/min Glucose (74-106) mg/dL POC Glucose 134 H 140 H (60-110) mg/dL Calcium (8.5-10.1) mg/dL Magnesium (1.8-2.4) mg/dL 07/28/18 07/28/18 Range/Units 05:25 05:45 Hgb (12.0-16.0) g/dL Hct (36.0-46.0) % Sodium 135 L (136-145) mmol/L Potassium 3.7 (3.5-5.1) mmol/L Chloride 100 (98-107) mmol/L Carbon Dioxide 27.9 (21.0-32.0) mmol/L BUN 12 (7.0-18.0) mg/dL Creatinine 0.9 (0.6-1.0) mg/dL Est Cr Clr Drug Dosing 55.33 mL/min Estimated GFR (MDRD) > 60.0 ml/min Glucose 135 H (74-106) mg/dL POC Glucose 128 H (60-110) mg/dL Calcium 8.1 L (8.5-10.1) mg/dL Magnesium 2.0 (1.8-2.4) mg/dL Med Orders - Current: Current Medications Al Hydroxide/Mg Hydroxide (Mag-Al Plus) 30 ml PO Q4H PRN PRN Reason: Indigestion Aspirin (Ecotrin) 325 mg PO BID [facility] Last Admin: 07/27/18 20:22 Dose: 325 mg Bisacodyl (Dulcolax) 10 mg RECTAL DAILY PRN PRN Reason: Constipation Calcium Carbonate/Glycine (Tums) 1,000 mg PO DAILY [facility] Last Admin: 07/27/18 09:00 Dose: 1,000 mg Celecoxib (Celebrex) 200 mg PO BID [facility] Last Admin: 07/27/18 20:22 Dose: 200 mg Chlorthalidone (Chlorthalidone) 25 mg PO DAILY [facility] Last Admin: 07/27/18 08:58 Dose: 25 mg Diphenhydramine HCl (Benadryl) 25 - 50 mg PO Q6H PRN PRN Reason: Itching Docusate Sodium (Colace) 100 mg PO BID PRN PRN Reason: Constipation Last Admin: 07/27/18 20:22 Dose: 100 mg Famotidine (Pepcid) 40 mg PO DAILY [facility] Last Admin: 07/27/18 09:00 Dose: 40 mg Hydromorphone HCl (Dilaudid) 0.5 - 1 mg IVPUSH Q3H PRN PRN Reason: Pain Last Admin: 07/27/18 12:24 Dose: 1 mg Insulin Aspart (Novolog) 0 unit SUBCUT TIDAC [facility]; Protocol Last Admin: 07/28/18 06:29 Dose: Not Given Lisinopril (Prinivil) 40 mg PO DAILY [facility] Last Admin: 07/27/18 08:57 Dose: 40 mg Magnesium Hydroxide (Milk Of Magnesia) 30 ml PO DAILY [facility] Last Admin: 07/27/18 09:02 Dose: Not Given Ondansetron HCl (Zofran) 4 mg IVPUSH Q6H PRN PRN Reason: Nausea/Vomiting Last Admin: 07/27/18 16:08 Dose: 4 mg Oxycodone/Acetaminophen (Percocet 325-5 Mg) 1 - 2 tab PO Q4H PRN PRN Reason: Pain Last Admin: 07/28/18 06:29 Dose: 1 tab Premarin Vaginal (Cream) 1 each VAG Q2D@2100 [facility] Last Admin: 07/27/18 20:26 Dose: 1 each Potassium Chloride (Klor-Con M20) 20 meq PO DAILY [facility] Last Admin: 07/27/18 08:59 Dose: 20 meq Scopolamine (Transderm-Scop) 1.5 mg TRDERM ONARRIVE [facility] Last Admin: 07/26/18 10:14 Dose: 1.5 mg Sodium Chloride (Saline Flush) 10 ml FLUSH ASDIRECTED PRN PRN Reason: Keep Vein Open Sodium Chloride (Saline Flush) 2.5 ml FLUSH ASDIRECTED PRN PRN Reason: Keep Vein Open Discontinued Medications Cefazolin Sodium (Ancef) Confirm Administered Dose 2 gm .ROUTE .STK-MED ONE Stop: 07/26/18 09:05 Ephedrine Sulfate (Ephedrine Sulfate) Confirm Administered Dose 50 mg .ROUTE .STK-MED ONE Stop: 07/26/18 11:14 Famotidine (Pepcid) 40 mg IVPUSH ONARRIVE [facility] Last Admin: 07/26/18 10:20 Dose: 40 mg Fentanyl (Sublimaze) Confirm Administered Dose 100 mcg .ROUTE .STK-MED ONE Stop: 07/26/18 09:08 Glycopyrrolate (Robinul) Confirm Administered Dose 0.2 mg .ROUTE .STK-MED ONE Stop: 07/26/18 11:00 Hydromorphone HCl (Dilaudid) 0.5 - 1 mg IVPUSH Q3H PRN PRN Reason: Pain Acetaminophen 1,000 mg/ Premix 100 mls @ 400 mls/hr IV ONARRIVE [facility] Last Admin: 07/26/18 10:20 Dose: 400 mls/hr Cefazolin Sodium/Dextrose 2 gm (/ Premix) 50 mls @ 100 mls/hr IV ONCALL [facility] Ropivacaine 49.25 ml/Ketorolac Tromethamine 30 mg/Epinephrine HCl 0.5 mg/ Clonidine HCl 80 mcg/ Sodium Chloride 75 mls @ 50 mls/sec INJECT ASDIRECTED [facility] Lactated Ringer's (Ringers, Lactated) 1,000 mls @ 100 mls/hr IV ASDIRECTED [facility] Last Admin: 07/26/18 21:22 Dose: 100 mls/hr Tranexamic Acid 2,000 mg/ (Sodium Chloride) 120 mls @ 600 mls/hr IV ASDIRECTED [facility] Stop: 07/26/18 08:11 Last Admin: 07/26/18 17:23 Dose: Not Given Ropivacaine 49.25 ml/Ketorolac Tromethamine 30 mg/Epinephrine HCl 0.5 mg/ Sodium Chloride 75 mls @ 37.5 mls/min INJECT ASDIRECTED [facility] Acetaminophen 1,000 mg/ Premix 100 mls @ 400 mls/hr IV Q6H [facility] Stop: 07/27/18 04:14 Last Admin: 07/27/18 04:09 Dose: 400 mls/hr Cefazolin Sodium/Dextrose 2 gm (/ Premix) 50 mls @ 100 mls/hr IV Q8H [facility] Stop: 07/27/18 03:29 Last Admin: 07/27/18 02:39 Dose: 100 mls/hr Magnesium Sulfate 2 gm/ Premix 50 mls @ 50 mls/hr IV ONETIME ONE Stop: 07/27/18 09:17 Last Admin: 07/27/18 08:46 Dose: 50 mls/hr Ketorolac Tromethamine (Toradol) 15 mg IVPUSH Q6H [facility] Stop: 07/27/18 05:00 Last Admin: 07/27/18 00:51 Dose: 15 mg Midazolam HCl (Versed 1 Mg/Ml) Confirm Administered Dose 4 mg .ROUTE .STK-MED ONE Stop: 07/26/18 09:07 Midazolam HCl (Versed 1 Mg/Ml) Confirm Administered Dose 2 mg .ROUTE .STK-MED ONE Stop: 07/26/18 10:34 Oxycodone HCl (Oxycodone) 5 - 10 mg PO Q4H PRN PRN Reason: Pain Stop: 07/27/18 06:00 Last Admin: 07/27/18 02:40 Dose: 10 mg Propofol (Diprivan 20 Ml) Confirm Administered Dose 200 mg .ROUTE .STK-MED ONE Stop: 07/26/18 09:13 Propofol (Diprivan 20 Ml) Confirm Administered Dose 200 mg .ROUTE .STK-MED ONE Stop: 07/26/18 09:14 Tranexamic Acid (Cyklokapron) Confirm Administered Dose 2,000 mg .ROUTE .STK- MED ONE Stop: 07/26/18 08:06 - Exam General: Alert, Oriented, Cooperative, No Acute Distress Lungs: Clear to Auscultation, Normal Respiratory Effort Cardiovascular: Regular Rate, Regular Rhythm GI/Abdominal Exam: Normal Bowel Sounds, Soft, Non-Tender Extremities: Normal Inspection, Normal Range of Motion, Non-Tender Skin: Warm, Dry Wound/Incisions: Dressing Dry and Intact Psy/Mental Status: Alert, Normal Affect, Normal Mood Consult PN Assessment/Plan Procedures: Procedures BREAST TOMOSYNTHESIS BI (04/05/18) COMPLETE CBC W/AUTO DIFF WBC (04/23/17) COMPREHEN METABOLIC PANEL (04/01/17) DXA BONE DENSITY AXIAL (04/01/17) LIPID PANEL (04/01/17) METABOLIC PANEL TOTAL CA (04/23/17) MRI JNT OF LWR EXTRE W/O DYE (07/09/18) REPAIR BLADDER DEFECT (04/23/17) REPAIR RECTUM & VAGINA (04/23/17) ROUTINE VENIPUNCTURE (04/23/17) SCR MAMMO BI INCL CAD (04/05/18) TISSUE EXAM BY PATHOLOGIST (04/23/17) URINALYSIS AUTO W/SCOPE (04/01/17) X-RAY EXAM KNEE 4 OR MORE (02/02/18) (1) S/P total knee arthroplasty SNOMED Code(s): 9858614897498, 561856365, 0754245990849 Code(s): Z96.659 - PRESENCE OF UNSPECIFIED ARTIFICIAL KNEE JOINT Current Visit: Yes Qualifiers: Laterality: right Qualified Code(s): Z96.651 - Presence of right artificial knee joint (2) HTN (hypertension) SNOMED Code(s): 96136095 Code(s): I10 - ESSENTIAL (PRIMARY) HYPERTENSION Current Visit: Yes Qualifiers: Hypertension type: essential hypertension Qualified Code(s): I10 - Essential (primary) hypertension (3) DM type 2 (diabetes mellitus, type 2) SNOMED Code(s): 48062060 Code(s): E11.9 - TYPE 2 DIABETES MELLITUS WITHOUT COMPLICATIONS Priority: Medium Current Visit: Yes Qualifiers: 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: without skilled nursing use Diabetes mellitus complication status: without complication Qualified Code(s): E11.9 - Type 2 diabetes mellitus without complications Problem List Initiated/Reviewed/Updated: Yes My Orders Last 24 Hours: My Active Orders 07/27/18 09:00 Chlorthalidone 25 mg PO DAILY Lisinopril [Prinivil] 40 mg PO DAILY Potassium Chloride [Klor-Con M20] 20 meq PO DAILY 07/27/18 21:00 Patient's Own Medication [Ptom] 1 each VAG Q2D@2100 07/29/18 05:11 BASIC METABOLIC PANEL,BMP [CHEM] AM MG [MAGNESIUM] [CHEM] AM Plan: This 68 yohan old female admitted with R TKA, Hospitalist consulted for medical management 1. S/P R TKA: Orders per Orthopedics 2. HTN: Stable, continue Chlorthalidone. 3. Hypokalemia: Stable. Continue Potassium supplement 4. DM Type 2: BS stable. Prediabetic, A1c 6.4. Hold Metformin, Novolog SSI, BS with meals. VTE prophylaxis: Would recommend when Orthopedics deems appropriate. Plan for SNF for short term rehabilitation.
[2018-07-28] MEDS: Famotidine 20 MG Tab PO SCH (08:53)
[2018-07-28] MEDS: Potassium Chloride 20 MEQ Tab.ER PO SCH (08:54)
[2018-07-28] MEDS: Chlorthalidone 25 MG Tab PO SCH (08:55)
[2018-07-28] MEDS: Celecoxib 100 MG Cap PO SCH ×2 (08:55→20:05)
[2018-07-28] MEDS: Aspirin 325 MG Tab.EC PO SCH ×2 (08:56→20:05)
[2018-07-28] MEDS: Lisinopril 10 MG Tab PO SCH (08:56)
[2018-07-28] MEDS: Calcium Carbonate 500 MG Tab.Chew PO SCH (08:56)
[2018-07-28] MEDS: Magnesium Hydroxide 400 MG/5 ML Susp 30 ML Cup PO SCH (08:57)
[2018-07-28] MEDS: Docusate Sodium 100 MG Cap PO PRN (20:05)
[2018-07-29 06:58] LABS: CHLORIDE,CL 103 mmol/L (98-107); SODIUM,NA 140 mmol/L (136-145)
--- NOTE | 2018-07-29 07:38 | PCM.SURGPN ---
- General Info Date of Service: 07/26/18 POD#: 3 Post-Op Diagnosis: Right total knee arthroplasty - Review of Systems Systems Review Comment:: Patient continues to do well. Her pain is controlled She is increasing her activity every day. No nausea, vomiting, fever, chills, chest pain, or SOB This morning she offered no complaints other than her room being chilly. - Patient Data Vitals - Most Recent: Last Vital Signs Temp 98.8 F 07/29/18 04:26 Pulse 71 07/29/18 04:26 Resp 16 07/29/18 04:26 BP 116/54 L 07/29/18 04:26 Pulse Ox 95 07/29/18 04:26 Weight - Most Recent: 185 lb I&O - Last 24 Hours: Intake & Output 07/28/18 07/29/18 07/29/18 22:59 06:59 14:59 Intake Total 1300 400 Output Total 2100 3000 Balance -800 -2600 Lab Results Last 24 Hrs: Laboratory Results - last 24 hr 07/28/18 07/28/18 07/29/18 Range/Units 11:30 16:14 05:11 Sodium 140 (136-145) mmol/L Potassium 3.5 (3.5-5.1) mmol/L Chloride 103 (98-107) mmol/L Carbon Dioxide 29.8 (21.0-32.0) mmol/L BUN 12 (7.0-18.0) mg/dL Creatinine 0.8 (0.6-1.0) mg/dL Est Cr Clr Drug Dosing 62.24 mL/min Estimated GFR (MDRD) > 60.0 ml/min Glucose 98 (74-106) mg/dL POC Glucose 146 H 131 H (60-110) mg/dL Calcium 8.6 (8.5-10.1) mg/dL Magnesium 2.0 (1.8-2.4) mg/dL 07/29/18 Range/Units 05:56 Sodium (136-145) mmol/L Potassium (3.5-5.1) mmol/L Chloride (98-107) mmol/L Carbon Dioxide (21.0-32.0) mmol/L BUN (7.0-18.0) mg/dL Creatinine (0.6-1.0) mg/dL Est Cr Clr Drug Dosing mL/min Estimated GFR (MDRD) ml/min Glucose (74-106) mg/dL POC Glucose 93 (60-110) mg/dL Calcium (8.5-10.1) mg/dL Magnesium (1.8-2.4) mg/dL Med Orders - Current: Current Medications Al Hydroxide/Mg Hydroxide (Mag-Al Plus) 30 ml PO Q4H PRN PRN Reason: Indigestion Aspirin (Ecotrin) 325 mg PO BID [facility] Last Admin: 07/28/18 20:05 Dose: 325 mg Bisacodyl (Dulcolax) 10 mg RECTAL DAILY PRN PRN Reason: Constipation Calcium Carbonate/Glycine (Tums) 1,000 mg PO DAILY [facility] Last Admin: 07/28/18 08:56 Dose: 1,000 mg Celecoxib (Celebrex) 200 mg PO BID [facility] Last Admin: 07/28/18 20:05 Dose: 200 mg Chlorthalidone (Chlorthalidone) 25 mg PO DAILY [facility] Last Admin: 07/28/18 08:55 Dose: 25 mg Diphenhydramine HCl (Benadryl) 25 - 50 mg PO Q6H PRN PRN Reason: Itching Docusate Sodium (Colace) 100 mg PO BID PRN PRN Reason: Constipation Last Admin: 07/28/18 20:05 Dose: 100 mg Famotidine (Pepcid) 40 mg PO DAILY [facility] Last Admin: 07/28/18 08:53 Dose: 40 mg Hydromorphone HCl (Dilaudid) 0.5 - 1 mg IVPUSH Q3H PRN PRN Reason: Pain Last Admin: 07/27/18 12:24 Dose: 1 mg Insulin Aspart (Novolog) 0 unit SUBCUT TIDAC [facility]; Protocol Last Admin: 07/28/18 17:51 Dose: Not Given Lisinopril (Prinivil) 40 mg PO DAILY [facility] Last Admin: 07/28/18 08:56 Dose: 40 mg Magnesium Hydroxide (Milk Of Magnesia) 30 ml PO DAILY [facility] Last Admin: 07/28/18 08:57 Dose: 30 ml Ondansetron HCl (Zofran) 4 mg IVPUSH Q6H PRN PRN Reason: Nausea/Vomiting Last Admin: 07/27/18 16:08 Dose: 4 mg Oxycodone/Acetaminophen (Percocet 325-5 Mg) 1 - 2 tab PO Q4H PRN PRN Reason: Pain Last Admin: 07/28/18 20:04 Dose: 1 tab Premarin Vaginal (Cream) 1 each VAG Q2D@2100 [facility] Last Admin: 07/27/18 20:26 Dose: 1 each Excedrin 1 each PO TID PRN PRN Reason: Headache Potassium Chloride (Klor-Con M20) 20 meq PO DAILY [facility] Last Admin: 07/28/18 08:54 Dose: 20 meq Scopolamine (Transderm-Scop) 1.5 mg TRDERM ONARRIVE [facility] Last Admin: 07/26/18 10:14 Dose: 1.5 mg Sodium Chloride (Saline Flush) 10 ml FLUSH ASDIRECTED PRN PRN Reason: Keep Vein Open Sodium Chloride (Saline Flush) 2.5 ml FLUSH ASDIRECTED PRN PRN Reason: Keep Vein Open Discontinued Medications Cefazolin Sodium (Ancef) Confirm Administered Dose 2 gm .ROUTE .STK-MED ONE Stop: 07/26/18 09:05 Ephedrine Sulfate (Ephedrine Sulfate) Confirm Administered Dose 50 mg .ROUTE .STK-MED ONE Stop: 07/26/18 11:14 Famotidine (Pepcid) 40 mg IVPUSH ONARRIVE [facility] Last Admin: 07/26/18 10:20 Dose: 40 mg Fentanyl (Sublimaze) Confirm Administered Dose 100 mcg .ROUTE .STK-MED ONE Stop: 07/26/18 09:08 Glycopyrrolate (Robinul) Confirm Administered Dose 0.2 mg .ROUTE .STK-MED ONE Stop: 07/26/18 11:00 Hydromorphone HCl (Dilaudid) 0.5 - 1 mg IVPUSH Q3H PRN PRN Reason: Pain Acetaminophen 1,000 mg/ Premix 100 mls @ 400 mls/hr IV ONARRIVE [facility] Last Admin: 07/26/18 10:20 Dose: 400 mls/hr Cefazolin Sodium/Dextrose 2 gm (/ Premix) 50 mls @ 100 mls/hr IV ONCALL [facility] Ropivacaine 49.25 ml/Ketorolac Tromethamine 30 mg/Epinephrine HCl 0.5 mg/ Clonidine HCl 80 mcg/ Sodium Chloride 75 mls @ 50 mls/sec INJECT ASDIRECTED [facility] Lactated Ringer's (Ringers, Lactated) 1,000 mls @ 100 mls/hr IV ASDIRECTED [facility] Last Admin: 07/26/18 21:22 Dose: 100 mls/hr Tranexamic Acid 2,000 mg/ (Sodium Chloride) 120 mls @ 600 mls/hr IV ASDIRECTED ONE Stop: 07/26/18 08:11 Last Admin: 07/26/18 17:23 Dose: Not Given Ropivacaine 49.25 ml/Ketorolac Tromethamine 30 mg/Epinephrine HCl 0.5 mg/ Sodium Chloride 75 mls @ 37.5 mls/min INJECT ASDIRECTED [facility] Acetaminophen 1,000 mg/ Premix 100 mls @ 400 mls/hr IV Q6H [facility] Stop: 07/27/18 04:14 Last Admin: 07/27/18 04:09 Dose: 400 mls/hr Cefazolin Sodium/Dextrose 2 gm (/ Premix) 50 mls @ 100 mls/hr IV Q8H [facility] Stop: 07/27/18 03:29 Last Admin: 07/27/18 02:39 Dose: 100 mls/hr Magnesium Sulfate 2 gm/ Premix 50 mls @ 50 mls/hr IV ONETIME ONE Stop: 07/27/18 09:17 Last Admin: 07/27/18 08:46 Dose: 50 mls/hr Ketorolac Tromethamine (Toradol) 15 mg IVPUSH Q6H [facility] Stop: 07/27/18 05:00 Last Admin: 07/27/18 00:51 Dose: 15 mg Midazolam HCl (Versed 1 Mg/Ml) Confirm Administered Dose 4 mg .ROUTE .STK-MED ONE Stop: 07/26/18 09:07 Midazolam HCl (Versed 1 Mg/Ml) Confirm Administered Dose 2 mg .ROUTE .STK-MED ONE Stop: 07/26/18 10:34 Oxycodone HCl (Oxycodone) 5 - 10 mg PO Q4H PRN PRN Reason: Pain Stop: 07/27/18 06:00 Last Admin: 07/27/18 02:40 Dose: 10 mg Propofol (Diprivan 20 Ml) Confirm Administered Dose 200 mg .ROUTE .STK-MED ONE Stop: 07/26/18 09:13 Propofol (Diprivan 20 Ml) Confirm Administered Dose 200 mg .ROUTE .STK-MED ONE Stop: 05/06/19 09:14 Tranexamic Acid (Cyklokapron) Confirm Administered Dose 2,000 mg .ROUTE .STK- MED ONE Stop: 07/26/18 08:06 - Exam Physical Findings Comment:: She appears well and comfortable. Respiratory effort is good, and breathing is non labored Abdomen is soft and painless. She is moving her right knee a little better every day. Still limited flexion and extension due to pain. Motor and sensation to her lower extremities bilaterally are intact. There is no swelling/edema to either lower extremity. - Problem List & Annotations (1) DM type 2 (diabetes mellitus, type 2) SNOMED Code(s): 89856323 Code(s): E11.9 - TYPE 2 DIABETES MELLITUS WITHOUT COMPLICATIONS Status: Acute Priority: Medium Current Visit: Yes Qualifiers: Diabetes mellitus superintendent terminal insulin use: without superintendent terminal use Diabetes mellitus complication status: without complication Qualified Code(s): E11.9 - Type 2 diabetes mellitus without complications (2) HTN (hypertension) SNOMED Code(s): 67183655 Code(s): I10 - ESSENTIAL (PRIMARY) HYPERTENSION Status: Acute Current Visit: Yes Qualifiers: Hypertension type: essential hypertension Qualified Code(s): I10 - Essential (primary) hypertension (3) S/P total knee arthroplasty SNOMED Code(s): 8875598553453, 762037943, 0048168215601 Code(s): Z96.659 - PRESENCE OF UNSPECIFIED ARTIFICIAL KNEE JOINT Status: Acute Current Visit: Yes Qualifiers: Laterality: right Qualified Code(s): Z96.651 - Presence of right artificial knee joint - Problem List Review Problem List Initiated/Reviewed/Updated: Yes - My Orders Last 24 Hours: Active Orders 24 hr Category Date Time Status Wound Care [RC] DAILY Care 07/28/18 15:12 Active Patient's Own Medication [Ptom] Med 07/28/18 10:06 Active 1 each PO TID PRN Medication Orders Al Hydroxide/Mg Hydroxide (Mag-Al Plus) 30 ml PO Q4H PRN PRN Reason: Indigestion Aspirin (Ecotrin) 325 mg PO BID [facility] Last Admin: 07/28/18 20:05 Dose: 325 mg Admin: 07/28/18 08:56 Dose: 325 mg Admin: 07/27/18 20:22 Dose: 325 mg Admin: 07/27/18 08:59 Dose: 325 mg Bisacodyl (Dulcolax) 10 mg RECTAL DAILY PRN PRN Reason: Constipation Calcium Carbonate/Glycine (Tums) 1,000 mg PO DAILY [facility] Last Admin: 07/28/18 08:56 Dose: 1,000 mg Admin: 07/27/18 09:00 Dose: 1,000 mg Celecoxib (Celebrex) 200 mg PO BID [facility] Last Admin: 07/28/18 20:05 Dose: 200 mg Admin: 07/28/18 08:55 Dose: 200 mg Admin: 07/27/18 20:22 Dose: 200 mg Admin: 07/27/18 09:01 Dose: 200 mg Chlorthalidone (Chlorthalidone) 25 mg PO DAILY [facility] Last Admin: 07/28/18 08:55 Dose: 25 mg Admin: 07/27/18 08:58 Dose: 25 mg Diphenhydramine HCl (Benadryl) 25 - 50 mg PO Q6H PRN PRN Reason: Itching Docusate Sodium (Colace) 100 mg PO BID PRN PRN Reason: Constipation Last Admin: 07/28/18 20:05 Dose: 100 mg Admin: 07/27/18 20:22 Dose: 100 mg Famotidine (Pepcid) 40 mg PO DAILY [facility] Last Admin: 07/28/18 08:53 Dose: 40 mg Admin: 07/27/18 09:00 Dose: 40 mg Hydromorphone HCl (Dilaudid) 0.5 - 1 mg IVPUSH Q3H PRN PRN Reason: Pain Last Admin: 07/27/18 12:24 Dose: 1 mg [facility] Last Admin: 07/28/18 17:51 Dose: Not Given Admin: 07/28/18 12:00 Dose: Not Given Admin: 07/28/18 06:29 Dose: Not Given Admin: 07/27/18 16:44 Dose: Not Given Admin: 07/27/18 12:26 Dose: Not Given Admin: 07/27/18 07:48 Dose: Not Given Admin: 07/26/18 17:40 Dose: Not Given Lisinopril (Prinivil) 40 mg PO DAILY [facility] Last Admin: 07/28/18 08:56 Dose: 40 mg Admin: 07/27/18 08:57 Dose: 40 mg Magnesium Hydroxide (Milk Of Magnesia) 30 ml PO DAILY [facility] Last Admin: 07/28/18 08:57 Dose: 30 ml Admin: 07/27/18 09:02 Dose: Not Given Ondansetron HCl (Zofran) 4 mg IVPUSH Q6H PRN PRN Reason: Nausea/Vomiting Last Admin: 07/27/18 16:08 Dose: 4 mg Admin: 07/27/18 08:15 Dose: 4 mg Oxycodone/Acetaminophen (Percocet 325-5 Mg) 1 - 2 tab PO Q4H PRN PRN Reason: Pain Last Admin: 07/28/18 20:04 Dose: 1 tab Admin: 07/28/18 06:29 Dose: 1 tab Admin: 07/28/18 00:40 Dose: 1 tab Admin: 07/27/18 20:23 Dose: 1 tab Admin: 07/27/18 08:55 Dose: 2 tab Premarin Vaginal (Cream) 1 each VAG Q2D@2100 [facility] Last Admin: 07/27/18 20:26 Dose: 1 each Excedrin 1 each PO TID PRN PRN Reason: Headache Potassium Chloride (Klor-Con M20) 20 meq PO DAILY [facility] Last Admin: 07/28/18 08:54 Dose: 20 meq Admin: 07/27/18 08:59 Dose: 20 meq Scopolamine (Transderm-Scop) 1.5 mg TRDERM ONARRIVE [facility] Last Admin: 07/26/18 10:14 Dose: 1.5 mg Sodium Chloride (Saline Flush) 10 ml FLUSH ASDIRECTED PRN PRN Reason: Keep Vein Open Sodium Chloride (Saline Flush) 2.5 ml FLUSH ASDIRECTED PRN PRN Reason: Keep Vein Open - Assessment Assessment (Free Text/Narrative):: POD 3 s/p right total knee arthroplasty. She is doing well, progressing appropriately, and is ready for discharge to [facility]. - Plan Plan (Free Text/Narrative):: Discharge to [facility] today. Should continue daily PT and work to increase ROM and activity everyday. We will send with PO pain medications. Follow up is scheduled with orthopedic surgery in 2 weeks. She should continue to take aspirin 325mg BID for DVT prophylaxis until we assess her and determine this can be stopped.
[2018-07-29] MEDS: Insulin Aspart 100 Units/ML 3 ML Pen SUBCUT SCH (07:39)
[2018-07-29] MEDS: Famotidine 20 MG Tab PO SCH (08:12)
[2018-07-29] MEDS: Calcium Carbonate 500 MG Tab.Chew PO SCH (08:13)
[2018-07-29] MEDS: Celecoxib 100 MG Cap PO SCH (08:13)
[2018-07-29] MEDS: Potassium Chloride 20 MEQ Tab.ER PO SCH (08:14)
[2018-07-29] MEDS: Lisinopril 10 MG Tab PO SCH (08:14)
[2018-07-29] MEDS: Magnesium Hydroxide 400 MG/5 ML Susp 30 ML Cup PO SCH (08:14)
[2018-07-29] MEDS: Aspirin 325 MG Tab.EC PO SCH (08:14)
[2018-07-29] MEDS: Chlorthalidone 25 MG Tab PO SCH (08:14)
--- NOTE | 2018-07-29 08:37 | PCM.SN ---
- Free Text/Narrative Note: d/ch summary #[id number]
--- NOTE | 2018-07-29 22:46 | DISCH ---
DATE OF DISCHARGE: 07/29/2018 PRIMARY CARE PHYSICIAN: Ramírez PCP ADMITTING DIAGNOSIS: Degenerative joint disease, right knee, tricompartmental. OTHER MEDICAL DIAGNOSES: 1. Hypertension. 2. Prediabetes. 3. Hypokalemia. DISCHARGE DIAGNOSES: 1. Degenerative joint disease, right knee, tricompartmental. 2. Hypertension. 3. Prediabetes. 4. Hypokalemia. 5. Acute posthemorrhagic anemia. BRIEF HISTORY: Mansi is a 68-year-old female who has had progressive complaints of right knee pain. She has tried and failed conservative treatment. At that time, surgical treatment was recommended. On July 26, 2018, the patient underwent right total knee arthroplasty done by Dr. Lana French. This was done under spinal anesthesia with sedation. Estimated blood loss was 50 mL. Tourniquet time was 38 minutes. There were no known complications. Upon completion of the procedure, the patient was transferred to the PACU and subsequently to [facility] for postoperative care. HOSPITAL COURSE: Postoperatively, the patient did well. She received 2 doses of antibiotics postoperatively for a total of 24 hours of antibiotic coverage. Physical therapy and hospitalist service followed her through her hospital stay. Aspirin 325 mg by mouth twice daily was started on postoperative day #1 as DVT prophylaxis. Her pain was controlled with a combination of oral and IV pain medications. She has been tolerating oral intake. She has been ambulating well with a wheeled walker. At this time, the patient is doing well. Her pain is controlled with oral pain medications only. She is ambulating with a wheeled walker. She is tolerating oral intake. She feels comfortable with transfer to a snf facility for rehab today. DISCHARGE MEDICATIONS: 1. Percocet 5/325. 2. Celebrex 200 mg. 3. Colace 100 mg. 4. MiraLAX. 5. Aspirin 325 mg. DISCHARGE INSTRUCTIONS: For complete discharge instructions, please refer back to Dr. French's postoperative total knee arthroplasty patient instructions. For complete medication reconciliation, please refer back to the patient's EHR. Should she have questions or concerns prior to followup, she has been advised to contact the clinic. CHEL DIAZ /[id number]
== END 2018-07-29 12:00 | DRG 470 ==
LOC: MW.MS 09:16 → EDSTATUS 10:45 → MW.MS 07-29 12:31
PROVIDERS: ADMIT Orthopaedic Surgery; ATTEND Orthopaedic Surgery
PROC: 0SRC0J9 Replacement of Right Knee Joint with Synthetic Substitute, Cemented, Open Approach (ICD-10-PCS; principal; 2018-07-26)
DX: M17.11 Unilateral primary osteoarthritis, right knee (principal); D62 Acute posthemorrhagic anemia; M94.261 Chondromalacia, right knee; M25.761 Osteophyte, right knee; I10 Essential (primary) hypertension; E87.6 Hypokalemia; R32 Unspecified urinary incontinence; E11.9 Type 2 diabetes mellitus without complications; E66.9 Obesity, unspecified; Z68.30 Body mass index [BMI] 30.0-30.9, adult; Z79.84 Long term (current) use of oral hypoglycemic drugs; Z90.710 Acquired absence of both cervix and uterus; Z88.5 Allergy status to narcotic agent
CPT/HCPCS: 01402; 36415; 73560-26-RT; 73560-RT; 80048; 82962; 83735; 85014; 85018; 85025; 86850; 86900; 86901; 97110-GP; 97116-GP; 97161-GP; 97530-GP; A9270-GY; C1776; J0131; J0171; J0690; J1170; J1885; J2250; J2405; J2704; J2795; J3010; J3475; J3490; J7050; J7120

== ENCOUNTER 2020-07-04 06:49 | Day surgery (SDC) | payer MEDICARE, OTHER ==
[~2020-07-04 06:49] MED LIST changes: -Acetaminophen 1,000 MG in Premix Bag 1 BAG IV SCH; -EPINEPHRINE INJECT SCH; -Famotidine 20 MG/2 ML SDV IVPUSH SCH; -KETOROLAC INJECT SCH; +Lactated Ringers 1,000 ML IV SCH; -Midazolam 1 MG/ML 2 ML SDV ONE; -Propofol 200 MG/20 ML SDV ONE; -ROPIVACAINE INJECT SCH; -Ropivacaine 49.25 ML, Ketorolac 30 MG, EPINEPHrine 0.5 MG, cloNIDine 80 MCG in Sodium C... INJECT SCH; -Scopolamine 1.5 MG Transdermal Patch TRDERM SCH; -Tranexamic Acid 2,000 MG in Sodium Chloride 0.9% 100 ML IV ONE; -[UNRECOGNIZED DRUG - OTHER] INJECT SCH; -ceFAZolin 1 GM Vial ONE; -ceFAZolin 2 GM in Premix Bag 1 BAG IV SCH; -fentaNYL 100 MCG/2 ML SDV ONE
[2020-07-04] MEDS ORDERED: Propofol 200 MG/20 ML SDV ONE (07:03)
[2020-07-04] MEDS ORDERED: Midazolam 1 MG/ML 2 ML SDV ONE (07:03)
--- NOTE | 2020-07-04 07:15 | PCM.PREANE ---
Preanesthetic Assessment - Anesthesia/Transfusion/Family Hx Anesthesia History: Prior Anesthesia Without Reaction Family History of Anesthesia Reaction: No Transfusion History: No Prior Transfusion(s) Intubation History: Unknown - Review of Systems General: No Symptoms Pulmonary: No Symptoms Cardiovascular: No Symptoms Gastrointestinal: No Symptoms Neurological: No Symptoms Other: Reports: None - Physical Assessment NPO Status Date: 07/04/20 NPO Status Time: 00:01 Height: 5 ft 5 in Weight: 162 lb ASA Class: 2 Mental Status: Alert & Oriented x3 Airway Class: Mallampati = 2 Dentition: Reports: Normal Dentition, Dentures ROM/Head Extension: Full Lungs: Clear to Auscultation, Normal Respiratory Effort Cardiovascular: Regular Rate, Regular Rhythm - Allergies Allergies/Adverse Reactions: Allergies Allergy/AdvReac Type Severity Reaction Status Date / Time morphine Allergy Nausea and Verified 06/27/20 09:29 Vomiting - Anesthesia Plan Pre-Op Medication Ordered: None - Acknowledgements Anesthesia Type Planned: General Anesthesia Pt an Appropriate Candidate for the Planned Anesthesia: Yes Alternatives and Risks of Anesthesia Discussed w Pt/Guardian: Yes Pt/Guardian Understands and Agrees with Anesthesia Plan: Yes Additional Comments: npo htn no cv problems tob none etoh rare Aodm par no questions PreAnesthesia Questionnaire - Past Health History Medical/Surgical History: Denies Medical/Surgical History HEENT History: Reports: Other (See Below) Other HEENT History: wears glasses, has top and bottom dentures Cardiovascular History: Reports: Hypertension Respiratory History: Reports: None Gastrointestinal History: Reports: None Genitourinary History: Reports: None 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 OB/BYN History: vaginal prolapse, stress incontinence Musculoskeletal History: Reports: Osteoarthritis Neurological History: Reports: None Psychiatric History: Reports: None Endocrine/Metabolic History: Reports: Diabetes, Type II, Obesity/BMI 30+ Other Endocrine/Metabolic History: prediabetic Hematologic History: Reports: None Immunologic History: Reports: None Oncologic (Cancer) History: Reports: None Dermatologic History: Reports: None - Past Surgical History GI Surgical History: Reports: None Female Surgical History: Reports: Hysterectomy Other Female Surgeries/Procedures: cystocele, rectocele & cystocele with vaginal sling procedure Musculoskeletal Surgical History: Reports: None - SUBSTANCE USE Tobacco Use Status *Q: Never Tobacco User Recreational Drug Use History: No - HOME MEDS Home Medications: Home Meds Chlorthalidone 25 mg PO DAILY 04/20/17 [History] Estrogens, Conjugated [Premarin Vaginal Crm] 1 dose VAG Q2D 04/20/17 [History] Lisinopril 40 mg PO QAM 04/20/17 [History] Multivitamin [Multivitamins] 1 tab PO DAILY 04/20/17 [History] metFORMIN HCl [Metformin HCl ER] 500 mg PO BID 07/26/18 [History] Acetaminophen [Tylenol] 1 - 2 tab PO Q4H PRN 06/27/20 [History] Cholecalciferol (Vitamin D3) [Vitamin D3] 1,000 unit PO DAILY 06/27/20 [History] Folic Acid/Vitamin B Comp W-C [Renal Caps Softgel] 1 cap PO DAILY 06/27/20 [History] Potassium Chloride [Klor-Con M10] 20 meq PO DAILY 06/27/20 [History] Tolterodine Tartrate [Tolterodine Tartrate ER] 2 mg PO DAILY 06/27/20 [History] - CURRENT (IN HOUSE) MEDS Current Meds: Current Medications Lactated Ringer's (Ringers, Lactated) 1,000 mls @ 125 mls/hr IV ASDIRECTED MARIA D Discontinued Medications Midazolam HCl (Midazolam 1 Mg/Ml 2 Ml Sdv) Confirm Administered Dose 2 mg .ROUTE .STK-MED ONE Stop: 07/04/20 07:04 Propofol (Propofol 200 Mg/20 Ml Sdv) Confirm Administered Dose 600 mg .ROUTE .STK-MED ONE Stop: 07/04/20 07:04
--- NOTE | 2020-07-04 08:29 | PCM.OPNOTE ---
- General Post-Op/Procedure Note Date of Surgery/Procedure: 07/04/20 Operative Procedure(s): colonoscopy Findings: see [id number] Pre Op Diagnosis: scrn colonoscopy Post-Op Diagnosis: diverticulosis Anesthesia Technique: Moderate Sedation Primary Surgeon: Melchor Graf Complications: None Condition: Good
--- NOTE | 2020-07-04 08:41 | PCM.POSTAN ---
POST ANESTHESIA ASSESSMENT - MENTAL STATUS Mental Status: Alert (no anesthetic problems), Oriented - VITAL SIGNS Vital Signs: Last Vital Signs Temp 97.9 F 07/04/20 06:50 Pulse 64 07/04/20 08:37 Resp 12 07/04/20 08:37 BP 83/40 L 07/04/20 08:37 Pulse Ox 96 07/04/20 08:37 - RESPIRATORY Respiratory Status: Respiratory Rate WNL, Airway Patent, O2 Saturation Stable - CARDIOVASCULAR CV Status: Pulse Rate WNL, Blood Pressure Stable - GASTROINTESTINAL GI Status: No Symptoms - POST OP HYDRATION Hydration Status: Adequate & Stable
--- NOTE | 2020-07-04 11:22 | OR ---
SURGEON: Melchor Graf MD DATE OF PROCEDURE: 07/04/2020 PREOPERATIVE DIAGNOSIS: Screening colonoscopy. POSTOPERATIVE DIAGNOSIS: Diverticulosis. PROCEDURE PERFORMED: Colonoscopy. DESCRIPTION OF PROCEDURE: The patient was taken to the endoscopy room. A time out was called, patient identified, and procedure identified. Diprivan was then administrated. Patient went from awake to sleep, hearing doctor talking or door closing is normal. Perineum inspection and digital examination were then performed. A well- lubricated colonoscope was gently inserted through the rectum, advanced past the rectosigmoid junction, the descending colon, splenic flexure, transverse colon, hepatic flexure, ascending colon, arrived to the cecum. Cecum was identified as dictated in the finding. Then the scope was carefully withdrawn while attention was paid to the mucosal surface for any abnormality. Air will be sucked out during the scope withdrawal. At the rectum, retroflexed to examine any rectal diseases, fistula or hemorrhoids. Patient tolerated procedure well. There were no intraoperative complications, and Dr. Graf was present throughout the whole procedure. INTRAOPERATIVE FINDINGS: 1. The patient easily sedated with TUBE CLEANER and Diprivan, patient is soundly snoring. 2. Bowel prep is average with a large amount of liquid stool, no stool ball, and no semi-formed stool. 3. Colon is rather straightforward. Cecum indicated by ileocecal fold, one-to- one indentation, appendiceal orifice, and ScopeGuide is pointing South. Mucosa examined upon scope pulling out with some irrigation. The patient has moderate diverticulosis on the left colon, several diverticula. They are not very big and no signs or symptoms of diverticulitis. No polyp, no mass, no growth. No inflammation, no stricture, no AV malformation, no bleeding, no ulcer. The stool is yellow in color, and the patient has minimal external hemorrhoid and mild internal hemorrhoid. The patient would benefit from repeat colonoscopy in 10 years from today or if clinically indicated otherwise. MALIK / JOE /[id number]
--- NOTE | 2020-07-04 12:04 | PCM48HPAN ---
Post Anesthesia Note - EVALUATION WITHIN 48HRS OF ANESTHETIC Vital Signs in Normal Range: Yes Patient Participated in Evaluation: Yes Respiratory Function Stable: Yes Airway Patent: Yes Cardiovascular Function Stable: Yes Hydration Status Stable: Yes Pain Control Satisfactory: Yes Nausea and Vomiting Control Satisfactory: Yes Mental Status Recovered: Yes Vital Signs: Last Vital Signs Temp 96.4 F L 07/04/20 08:41 Pulse 69 07/04/20 08:41 Resp 14 07/04/20 08:41 BP 96/55 L 07/04/20 08:41 Pulse Ox 100 07/04/20 08:41
== END 2020-07-04 09:15 | disposition home or self-care (01) ==
LOC: MW.SDS 06:49
PROVIDERS: ATTEND Surgery
DX: Z12.11 Encounter for screening for malignant neoplasm of colon (principal); K57.30 Diverticulosis of large intestine without perforation or abscess without bleeding; K64.4 Residual hemorrhoidal skin tags; K64.8 Other hemorrhoids; I10 Essential (primary) hypertension; R73.03 Prediabetes; Z88.6 Allergy status to analgesic agent; Z79.84 Long term (current) use of oral hypoglycemic drugs; Z79.899 Other long term (current) drug therapy; Z98.890 Other specified postprocedural states
CPT/HCPCS: G0121; J2250; J2704; J7120; 00812